=== PATIENT | female | born 1985 | race Caucasian/White ===

== ENCOUNTER 2016-11-14 08:56 | Emergency (ER) | payer OTHER ==
[2016-11-14] MEDS ORDERED: SODIUM CHLORIDE 0.9% 1,000 ML IV ONE (09:08)
[2016-11-14] MEDS ORDERED: diphenhydrAMINE 50 MG/ML 1 ML VIAL IVP STA (09:09)
[2016-11-14] MEDS ORDERED: KETOROLAC 30 MG/ML 1 ML VIAL IVP STA (09:09)
[2016-11-14] MEDS ORDERED: METOCLOPRAMIDE 5 MG/ML 2 ML VIAL IVP STA (09:09)
--- NOTE | 2016-11-14 09:12 | ED ---
General Adult HPI - General Chief complaint: Nausea/Vomiting/Diarrhea Stated complaint: vomiting Time Seen by Provider: 11/14/16 09:03 Source: patient, RN notes reviewed Mode of arrival: ambulatory Limitations: no limitations - History of Present Illness Initial comments: This a 30-year-old female presents emergency Department with chief complaint of headache. Patient states that she started a headache yesterday afternoon and states that she started vomiting. She states it was not getting better after she slept last night. Patient states she has a long history of headaches and high blood pressure issues. She states she is concerned that she cannot take her blood pressure medication, she's been vomiting. Denies any focal weakness, blurred vision. She does have some photophobia. Denies any neck pain, neck stiffness. She states her headache is consistent with her prior headaches in the past. Patient denies fever, chills or any cold like symptoms other than ALLERGY symptoms. Patient states that she's had nausea with no hematemesis no coffee-ground it but just more bile emesis. Patient denies any abdominal pain this time. - Related Data Home Medications Medication Instructions Recorded Confirmed Atenolol [Tenormin] 25 mg PO DAILY 05/31/15 11/14/16 Levothyroxine Sodium [Synthroid] 25 mcg PO DAILY 05/31/15 11/14/16 Pregabalin [Lyrica] 150 mg PO TID 05/31/15 11/14/16 Lisinopril [Lisinopril] 10 mg PO DAILY 06/05/15 11/14/16 ALPRAZolam [Xanax] 0.25 mg PO BID PRN 11/14/16 11/14/16 Baclofen [Lioresal] 10 mg PO BID 11/14/16 11/14/16 Ferrous Sulfate [Feosol] 325 mg PO DAILY 11/14/16 11/14/16 L.acidoph,Paracasei, B.lactis 1 cap PO BID 11/14/16 11/14/16 [Probiotic] Omeprazole [PriLOSEC] 20 mg PO AC-BRKFST 11/14/16 11/14/16 Allergies Allergy/AdvReac Type Severity Reaction Status Date / Time amoxicillin [Amoxicillin] Allergy Unknown Verified 11/14/16 09:18 Penicillins Allergy Unknown Verified 11/14/16 09:18 shellfish derived [Shellfish] Allergy Anaphylaxis Verified 11/14/16 09:18 tree nut Allergy Unknown Verified 11/14/16 09:18 Review of Systems ROS Statement: Those systems with pertinent positive or pertinent negative responses have been documented in the HPI. ROS Other: All systems not noted in ROS Statement are negative. Past Medical History Past Medical History: Fibromyalgia, GERD/Reflux, Hypertension, Thyroid Disorder Additional Past Medical History / Comment(s): migrane headaches,anemia, and chronic constipation History of Any Multi-Drug Resistant Organisms: None Reported Past Surgical History: Section Additional Past Surgical History / Comment(s): x3 Past Anesthesia/Blood Transfusion Reactions: No Reported Reaction Past Psychological History: Anxiety Smoking Status: Never smoker Past Alcohol Use History: None Reported Past Drug Use History: None Reported General Exam Limitations: no limitations General appearance: alert, in no apparent distress Head exam: Present: atraumatic, normocephalic, normal inspection Eye exam: Present: normal appearance, PERRL, EOMI. Absent: scleral icterus, conjunctival injection, periorbital swelling ENT exam: Present: normal exam, normal oropharynx, mucous membranes moist, TM's normal bilaterally, normal external ear exam Neck exam: Present: normal inspection, full ROM. Absent: tenderness, meningismus, lymphadenopathy Respiratory exam: Present: normal lung sounds bilaterally. Absent: respiratory distress, wheezes, rales, rhonchi, stridor Cardiovascular Exam: Present: regular rate, normal rhythm, normal heart sounds. Absent: systolic murmur, diastolic murmur, rubs, gallop, clicks GI/Abdominal exam: Present: soft, normal bowel sounds. Absent: distended, tenderness, guarding, rebound, rigid Extremities exam: Present: normal inspection, full ROM, normal capillary refill. Absent: tenderness, pedal edema, joint swelling, calf tenderness Neurological exam: Present: alert, oriented X3, CN II-XII intact, reflexes normal. Absent: motor sensory deficit Skin exam: Present: warm, dry, intact, normal color. Absent: rash Course Vital Signs 11/14/16 08:59 Temperature 98.3 F Pulse Rate 80 Respiratory 20 Rate Blood Pressure 183/112 O2 Sat by Pulse 99 Oximetry Medical Decision Making - Medical Decision Making 30-year-old female presented emergency department for headache nausea vomiting. Patient does feel improved at this time. Patient was given her blood pressure medication and she tolerated. Patient will be discharged at this time return parameters were discussed. Disposition Clinical Impression: Migraine, Nausea & vomiting Disposition: HOME SELF-CARE Condition: Stable Instructions: Migraine Headache (ED) Additional Instructions: Please return to the Emergency Department if symptoms worsen or any other concerns. Time of Disposition: 11:06
[2016-11-14] MEDS ORDERED: LISINOPRIL 10 MG TAB PO STA (10:26)
[2016-11-14] MEDS ORDERED: ONDANSETRON 4 MG/2 ML VIAL IVP STA (10:26)
[2016-11-14] MEDS ORDERED: BUTALB/APAP/CAFF 50-325-40MG TAB PO STA (10:26)
[2016-11-14 11:22] VITALS: BP 137/87; PULSE 67; RESP 16; TEMP 98.2
== END 2016-11-14 11:19 | disposition home or self-care (01) ==
LOC: EC 08:56
DX: G43.909 Migraine, unspecified, not intractable, without status migrainosus (principal); E07.9 Disorder of thyroid, unspecified; K21.9 Gastro-esophageal reflux disease without esophagitis; I10 Essential (primary) hypertension; M79.7 Fibromyalgia; D64.9 Anemia, unspecified; Z88.0 Allergy status to penicillin; Z91.018 Allergy to other foods; Z91.013 Allergy to seafood; Z79.899 Other long term (current) drug therapy
CPT/HCPCS: 99283; 96374; 96375 ×3; 96361; J1200; J2765; J2405; J1885

== ENCOUNTER → 2016-12-18 | Outpatient (CLI) | payer OTHER ==
[2016-12-18 12:35] LABS: Anisocytosis Slight; CH 18.6; CHCM 27.4; HCT 33.2 % (34.0-46.0); HDW 3.26; HGB 9.2 gm/dL (11.4-16.0); Hypochromasia Marked; MCHC 27.9 g/dL (31.0-37.0); MCV 68.3 fL (80.0-100.0); Mean Platelet Volume 6.3; Microcytosis Marked; RBC 4.85 m/uL (3.80-5.40); RDW 16.7 % (11.5-15.5); WBC 7.8 k/uL (3.8-10.6)
[2016-12-18 12:59] LABS: ALT 26 U/L (9-52); AST 21 U/L (14-36); Alkaline Phosphatase 89 U/L (38-126); Anion Gap 15 mmol/L; Blood Urea Nitrogen 6 mg/dL (7-17); Calcium 9.7 mg/dL (8.4-10.2); Carbon Dioxide 22 mmol/L (22-30); Chloride 106 mmol/L (98-107); Cholesterol 159 mg/dL (<200); Glucose 84 mg/dL (74-99); HDL Cholesterol 39 mg/dL (40-60); Non-African American GFR(MDRD) >60 (>60 ml/min/1.73 sqM); Sodium 143 mmol/L (137-145); Total Bilirubin 0.4 mg/dL (0.2-1.3); Total Protein 7.9 g/dL (6.3-8.2); Triglycerides 104 mg/dL (<150)
[2016-12-18 13:33] LABS: Potassium 4.4 mmol/L (3.5-5.1)
== END | disposition home or self-care (01) ==
LOC: LABWHC1 12:17
PROVIDERS: ATTEND Internal Medicine
DX: E03.9 Hypothyroidism, unspecified (principal); E78.2 Mixed hyperlipidemia; D64.9 Anemia, unspecified; I11.9 Hypertensive heart disease without heart failure
CPT/HCPCS: 36415; 80053; 80061; 84439; 84443; 85027

== ENCOUNTER → 2017-05-22 | Outpatient (CLI) | payer OTHER ==
[2017-05-22 14:27] LABS: Anisocytosis Slight; CH 18.5; CHCM 26.8; HDW 3.16; HGB 8.9 gm/dL (11.4-16.0); Hypochromasia Marked; MCH 18.8 pg (25.0-35.0); MCHC 27.1 g/dL (31.0-37.0); MCV 69.4 fL (80.0-100.0); Mean Platelet Volume 6.4; Microcytosis Marked; RBC 4.76 m/uL (3.80-5.40); RDW 16.4 % (11.5-15.5); WBC 8.8 k/uL (3.8-10.6)
[2017-05-22 14:36] LABS: ALT 23 U/L (9-52); AST 20 U/L (14-36); Alkaline Phosphatase 77 U/L (38-126); Anion Gap 11 mmol/L; Blood Urea Nitrogen 9 mg/dL (7-17); Calcium 9.6 mg/dL (8.4-10.2); Carbon Dioxide 23 mmol/L (22-30); Chloride 106 mmol/L (98-107); Cholesterol 149 mg/dL (<200); Glucose 91 mg/dL (74-99); HDL Cholesterol 55 mg/dL (40-60); Non-African American GFR(MDRD) >60 (>60 ml/min/1.73 sqM); Sodium 140 mmol/L (137-145); Total Bilirubin 0.2 mg/dL (0.2-1.3); Total Protein 7.7 g/dL (6.3-8.2)
[2017-05-22 15:12] LABS: Potassium 4.1 mmol/L (3.5-5.1)
--- NOTE | 2017-05-22 16:27 | XR ---
EXAMINATION TYPE: XR chest 2V DATE OF EXAM: 05/22/2017 COMPARISON: Prior chest x-ray 03/13/2016 HISTORY: Chest congestion and cough TECHNIQUE: Frontal and lateral views of the chest are obtained. FINDINGS: There is no focal air space opacity, pleural effusion, or pneumothorax seen. The cardiac silhouette size is stable and within normal limits. There is a spinal curvature. Bronchial wall thick ening noted. The osseous structures are intact. IMPRESSION: Correlate for bronchitis, reactive airways disease.
== END | disposition home or self-care (01) ==
LOC: LABWHC1 13:41
PROVIDERS: ATTEND Internal Medicine
DX: Z00.00 Encounter for general adult medical examination without abnormal findings (principal); J45.909 Unspecified asthma, uncomplicated; E78.2 Mixed hyperlipidemia; K21.0 Gastro-esophageal reflux disease with esophagitis; I11.9 Hypertensive heart disease without heart failure
CPT/HCPCS: 36415; 71020; 80053; 80061; 84439; 84443; 85027

== ENCOUNTER 2017-09-18 09:06 | Emergency (ER) | payer OTHER ==
[2017-09-18 09:11] VITALS: BP 171/108; PULSE 93; RESP 18; TEMP 98.7
--- NOTE | 2017-09-18 09:46 | XR ---
EXAMINATION TYPE: XR chest 2V DATE OF EXAM: 09/18/2017 COMPARISON: 05/22/2017 TECHNIQUE: PA and lateral views submitted. HISTORY: Cough FINDINGS: The lungs are clear and there is no pneumothorax, pleural effusion, or focal pneumonia. Slight scol iotic curvature. IMPRESSION: 1. No acute process.
--- NOTE | 2017-09-18 09:59 | ED ---
URI HPI - General Chief Complaint: Upper Respiratory Infection Stated Complaint: Sore Throat Time Seen by Provider: 09/18/17 09:17 Source: patient, RN notes reviewed Mode of arrival: ambulatory Limitations: no limitations - History of Present Illness Initial Comments: 31-year-old female presented from chief complaint cough congestion. Patient states she's been sick for 3 weeks with a sore throat, productive cough, ear pressure. Patient denies any known fevers or chills she's been trying over-the- counter cough and cold medication no relief. Patient denies any sick contacts. - Related Data Home Medications Medication Instructions Recorded Confirmed Levothyroxine Sodium [Synthroid] 25 mcg PO DAILY 05/31/15 09/18/17 Pregabalin [Lyrica] 150 mg PO TID 05/31/15 09/18/17 Lisinopril [Lisinopril] 10 mg PO BID 06/05/15 09/18/17 ALPRAZolam [Xanax] 0.25 mg PO BID PRN 11/14/16 09/18/17 Atenolol [Tenormin] 25 mg PO DAILY 09/18/17 09/18/17 amLODIPine [Norvasc] 5 mg PO DAILY 09/18/17 09/18/17 Previous Rx's Medication Instructions Recorded Azithromycin [Zithromax Z-pack] 0 mg PO DIRECTED #1 pack 09/18/17 predniSONE 50 mg PO DAILY #5 tab 09/18/17 Allergies Allergy/AdvReac Type Severity Reaction Status Date / Time amoxicillin [Amoxicillin] Allergy Unknown Verified 09/18/17 09:22 latex Allergy Rash/Hives Verified 09/18/17 09:25 Penicillins Allergy Unknown Verified 09/18/17 09:22 shellfish derived [Shellfish] Allergy Anaphylaxis Verified 09/18/17 09:22 tree nut Allergy Unknown Verified 09/18/17 09:22 Review of Systems ROS Statement: Those systems with pertinent positive or pertinent negative responses have been documented in the HPI. ROS Other: All systems not noted in ROS Statement are negative. Past Medical History Past Medical History: Fibromyalgia, GERD/Reflux, Hypertension, Thyroid Disorder Additional Past Medical History / Comment(s): migrane headaches,anemia, and chronic constipation History of Any Multi-Drug Resistant Organisms: None Reported Past Surgical History: Section, Tubal Ligation Additional Past Surgical History / Comment(s): x3 Past Anesthesia/Blood Transfusion Reactions: No Reported Reaction Past Psychological History: Anxiety Smoking Status: Never smoker Past Alcohol Use History: None Reported Past Drug Use History: None Reported General Exam Limitations: no limitations General appearance: alert, in no apparent distress Head exam: Present: atraumatic, normocephalic, normal inspection Eye exam: Present: normal appearance, PERRL, EOMI. Absent: scleral icterus, conjunctival injection, periorbital swelling ENT exam: Present: normal exam, normal oropharynx, mucous membranes moist, TM's normal bilaterally, normal external ear exam Neck exam: Present: normal inspection, full ROM. Absent: tenderness, meningismus, lymphadenopathy Respiratory exam: Present: rhonchi. Absent: normal lung sounds bilaterally, respiratory distress, wheezes, rales, stridor Cardiovascular Exam: Present: regular rate, normal rhythm, normal heart sounds. Absent: systolic murmur, diastolic murmur, rubs, gallop, clicks Course Vital Signs 09/18/17 09/18/17 09:07 09:51 Temperature 98.7 F Pulse Rate 93 Respiratory 18 18 Rate Blood Pressure 171/108 O2 Sat by Pulse 100 Oximetry Medical Decision Making - Medical Decision Making 31-year-old female presents for for cough congestion. Patient has been sick for 3 weeks. Chest x-ray reviewed no acute abnormality. Patient we treated for acute sinus says, bronchitis. Return parameters were discussed. Disposition Clinical Impression: Bronchitis, Sinusitis Disposition: HOME SELF-CARE Condition: Stable Instructions: Upper Respiratory Infection (ED) Additional Instructions: Please return to the Emergency Department if symptoms worsen or any other concerns. Prescriptions: Azithromycin [Zithromax Z-pack] 0 mg PO DIRECTED #1 pack predniSONE 50 mg PO DAILY #5 tab Referrals: Bruno Loera MD [Primary Care Provider] - 1-2 days Time of Disposition: 09:59
== END 2017-09-18 10:02 | disposition home or self-care (01) ==
LOC: EC 09:06
DX: M79.7 Fibromyalgia (principal); I10 Essential (primary) hypertension; E07.9 Disorder of thyroid, unspecified; J40 Bronchitis, not specified as acute or chronic; J32.9 Chronic sinusitis, unspecified; Z79.899 Other long term (current) drug therapy; Z88.0 Allergy status to penicillin; Z91.040 Latex allergy status; Z91.013 Allergy to seafood; Z91.018 Allergy to other foods
CPT/HCPCS: 71046; 99283

== ENCOUNTER 2018-02-22 20:09 | Observation (INO) | payer OTHER ==
[2018-02-22 20:31] LABS: Glucose,Whole Blood 106 mg/dL (75-99)
[2018-02-22] MEDS ORDERED: SODIUM CHLORIDE 0.9% 1,000 ML IV STA (22:05)
[2018-02-22] MEDS ORDERED: PROCHLORPERAZINE 10 MG TAB PO STA (22:06)
[2018-02-22] MEDS ORDERED: diphenhydrAMINE 50 MG/ML 1 ML VIAL IVP STA (22:07)
--- NOTE | 2018-02-22 22:12 | ED ---
Headache HPI - General Chief Complaint: Headache Stated Complaint: Poss high blood sugar/ Migraine Time Seen by Provider: 02/22/18 21:49 Mode of arrival: ambulatory Limitations: no limitations - History of Present Illness Initial Comments: Patient is a 32-year-old female presenting for headache. Patient states that she's got history of chronic headaches and that this particular headache was slow in onset and has been present for 3 days. The pain feels like a pressure in the back of her eyes as well as the back of her head and is associated with lightheadedness and one episode of nausea/vomiting. She states that she has had chronic problems with her blood pressure she was on labetalol at one time but nothing now. Over the last couple weeks, she has been having increased frequency of head aches and that this is also not the worst headache of her life. She states that she has had a CT in the past which showed some problems with her cerebellum but she does not know exactly what that was. - Related Data Home Medications Medication Instructions Recorded Confirmed Levothyroxine Sodium [Synthroid] 25 mcg PO DAILY 05/31/15 09/18/17 Pregabalin [Lyrica] 150 mg PO TID 05/31/15 09/18/17 Lisinopril 10 mg PO BID 06/05/15 09/18/17 ALPRAZolam [Xanax] 0.25 mg PO BID PRN 11/14/16 09/18/17 Atenolol [Tenormin] 25 mg PO DAILY 09/18/17 09/18/17 amLODIPine [Norvasc] 5 mg PO DAILY 09/18/17 09/18/17 Previous Rx's Medication Instructions Recorded Azithromycin [Zithromax Z-pack] 0 mg PO DIRECTED #1 pack 09/18/17 predniSONE 50 mg PO DAILY #5 tab 09/18/17 Allergies Allergy/AdvReac Type Severity Reaction Status Date / Time amoxicillin [Amoxicillin] Allergy Unknown Verified 02/22/18 20:30 latex Allergy Rash/Hives Verified 02/22/18 20:30 Penicillins Allergy Unknown Verified 02/22/18 20:30 shellfish derived [Shellfish] Allergy Anaphylaxis Verified 02/22/18 20:30 tree nut Allergy Unknown Verified 02/22/18 20:30 Review of Systems ROS Statement: Those systems with pertinent positive or pertinent negative responses have been documented in the HPI. Constitutional: Negative for chills, fatigue and fever. HENT: Negative for congestion. Respiratory: Negative for chest tightness, shortness of breath and wheezing. Negative for cough Cardiovascular: Negative for chest pain and palpitations. Gastrointestinal: Negative for abdominal pain. Negative for abdominal distention , diarrhea, positive for nausea and vomiting. Genitourinary: Negative for dysuria. Musculoskeletal: Negative for back pain, neck pain and neck stiffness. Skin: Negative for color change. Neurological: Negative for dizziness, speech difficulty, weakness and positive for headache and light-headedness. Psychiatric/Behavioral: Negative for agitation and confusion. Negative for anxiety ROS Other: All systems not noted in ROS Statement are negative. Past Medical History Past Medical History: Fibromyalgia, GERD/Reflux, Hypertension, Thyroid Disorder Additional Past Medical History / Comment(s): migrane headaches,anemia, and chronic constipation History of Any Multi-Drug Resistant Organisms: None Reported Past Surgical History: Section, Tubal Ligation Additional Past Surgical History / Comment(s): x3 Past Anesthesia/Blood Transfusion Reactions: No Reported Reaction Past Psychological History: Anxiety Smoking Status: Never smoker Past Alcohol Use History: None Reported Past Drug Use History: None Reported General Exam - General Exam Comments Initial Comments: Constitutional: Pt is oriented to person, place, and time. Pt appears well- developed and well-nourished. No distress. HENT: Head: Normocephalic and atraumatic. Eyes: EOM are normal. Neck: Normal range of motion. Neck supple. Cardiovascular: Normal rate, regular rhythm, S1 normal, S2 normal and normal heart sounds. Exam reveals no gallop and no friction rub. No murmur heard. Pulmonary/Chest: Effort normal and breath sounds normal. No tachypnea and no bradypnea. No respiratory distress. No wheezes or rales noted. Abdominal: Soft. Bowel sounds are normal. Pt exhibits no shifting dullness, no distension, no pulsatile liver, no fluid wave, no abdominal bruit and no ascites. There is no tenderness. There is no rigidity, no rebound, no guarding, no tenderness at McBurney's point and negative Galdamez's sign. Musculoskeletal: Normal range of motion. Neurological: Pt is alert and oriented to person, place, and time. No cranial nerve deficit. No meningismus, negative Kernig, negative Brudzinski's Skin: Skin is warm and dry. No rash noted. Pt is not diaphoretic. No erythema. No pallor. Psychiatric: Pt has a normal mood and affect. Pt behavior is normal. Thought content normal. Limitations: no limitations Course Vital Signs 02/22/18 02/22/18 02/22/18 20:23 22:58 23:38 Temperature 98.5 F Pulse Rate 97 75 Respiratory 18 16 Rate Blood Pressure 175/117 194/126 169/101 O2 Sat by Pulse 97 100 Oximetry 02/23/18 02/23/18 02/23/18 00:27 00:30 01:00 Temperature Pulse Rate 70 76 Respiratory 70 H Rate Blood Pressure 199/122 199/122 180/121 O2 Sat by Pulse Oximetry 02/23/18 01:16 Temperature Pulse Rate 75 Respiratory Rate Blood Pressure 163/113 O2 Sat by Pulse Oximetry - Reevaluation(s) Reevaluation #1: 02/23/18 00:03 Patient was initially given Benadryl and Compazine and continues to have headache which is slightly improved to a 7 out of 10 from a 9 out [address] Head [address] is pending. Reevaluation #2: 02/23/18 00:31 CTA of the head was performed and showed no evidence of acute pathology. However, patient continues to remain hypertensive at 199/125. Because of this, the patient will be given 10 mg labetalol and patient continues to have headache after being given Toradol and sumatriptan. Because of this, patient will be placed in observation for intractable headache. Extensive discussion was had with the patient about subarachnoid hemorrhage and timeframe of the CT head is advised that although the CTA could not completely rule out subarachnoid it was unlikely that this was the source. Nonetheless, he was also advised that the only definitive way to diagnosis was lumbar puncture. Patient currently declined and stated that she would hold off on this procedure. Patient also now states that her chest feels a little tight and therefore chest x-ray and EKG will be performed. Medical Decision Making - Medical Decision Making Because of patient's continued headache with unknown etiology and hypertension, patient will be placed in observation for continued treatment and hydration. Patient continues to have no neurologic deficits. Blood pressure is also been reduced appropriately with the labetalol but because the patient was having chest discomfort, this appears to be hypertensive urgency.. Explained all labs and diagnostic test results and that we will admit patient to hospital. Pt is agreeable to plan and case has been discussed with Dr. Loera and they agree to accept the pt. - Lab Data Result diagrams: 02/22/18 22:36 02/22/18 22:36 Lab Results 02/22/18 02/22/18 02/22/18 Range/Units 20:29 22:36 22:36 WBC 8.0 (3.8-10.6) k/uL RBC 5.27 (3.80-5.40) m/uL Hgb 9.6 L (11.4-16.0) gm/dL Hct 33.8 L (34.0-46.0) % MCV 64.1 L (80.0-100.0) fL MCH 18.2 L (25.0-35.0) pg MCHC 28.4 L (31.0-37.0) g/dL RDW 17.3 H (11.5-15.5) % Plt Count 424 (150-450) k/uL Neutrophils % 57 % Lymphocytes % 31 % Monocytes % 9 % Eosinophils % 2 % Basophils % 1 % Neutrophils # 4.6 (1.3-7.7) k/uL Lymphocytes # 2.5 (1.0-4.8) k/uL Monocytes # 0.7 (0-1.0) k/uL Eosinophils # 0.1 (0-0.7) k/uL Basophils # 0.0 (0-0.2) k/uL Hypochromasia Marked Anisocytosis Slight Microcytosis Marked Sodium 141 (137-145) mmol/L Potassium 4.4 (3.5-5.1) mmol/L Chloride 107 (98-107) mmol/L Carbon Dioxide 23 (22-30) mmol/L Anion Gap 11 mmol/L BUN 10 (7-17) mg/dL Creatinine 0.60 (0.52-1.04) mg/dL Est GFR (CKD-EPI)AfAm >90 (>60 ml/min/1.73 sqM) Est GFR (CKD-EPI)NonAf >90 (>60 ml/min/1.73 sqM) Glucose 82 (74-99) mg/dL POC Glucose (mg/dL) 106 H (75-99) mg/dL POC Glu Oral And Maxillofacial Surgery ID Wilma [place] Calcium 9.5 (8.4-10.2) mg/dL Urine HCG, Qual (Not Detectd) 02/22/18 Range/Units 23:39 WBC (3.8-10.6) k/uL RBC (3.80-5.40) m/uL Hgb (11.4-16.0) gm/dL Hct (34.0-46.0) % MCV (80.0-100.0) fL MCH (25.0-35.0) pg MCHC (31.0-37.0) g/dL RDW (11.5-15.5) % Plt Count (150-450) k/uL Neutrophils % % Lymphocytes % % Monocytes % % Eosinophils % % Basophils % % Neutrophils # (1.3-7.7) k/uL Lymphocytes # (1.0-4.8) k/uL Monocytes # (0-1.0) k/uL Eosinophils # (0-0.7) k/uL Basophils # (0-0.2) k/uL Hypochromasia Anisocytosis Microcytosis Sodium (137-145) mmol/L Potassium (3.5-5.1) mmol/L Chloride (98-107) mmol/L Carbon Dioxide (22-30) mmol/L Anion Gap mmol/L BUN (7-17) mg/dL Creatinine (0.52-1.04) mg/dL Est GFR (CKD-EPI)AfAm (>60 ml/min/1.73 sqM) Est GFR (CKD-EPI)NonAf (>60 ml/min/1.73 sqM) Glucose (74-99) mg/dL POC Glucose (mg/dL) (75-99) mg/dL POC Glu Oral And Maxillofacial Surgery ID Calcium (8.4-10.2) mg/dL Urine HCG, Qual Not Detected (Not Detectd) - EKG Data EKG Comments: EKG shows normal sinus rhythm with a rate of 69 bpm, MI interval 142, QRS 78, QTC 484. There is nonspecific T-wave inversion in lead V2 with no significant ST depressions or elevations. Disposition Clinical Impression: Hypertensive urgency, Intractable headache Disposition: ADMITTED IP TO THIS [facility] Condition: Fair Instructions: Acute Headache (ED) Referrals: Bruno Loera MD [Primary Care Provider] - 1-2 days Decision to Admit Reason: Admit from EC Decision Date: 02/23/18 Decision Time: 01:30
[2018-02-22 22:48] LABS: Anisocytosis Slight; Basophils % (A) 1 %; Eosinophils # (A) 0.1 k/uL (0-0.7); Eosinophils % (A) 2 %; HCT 33.8 % (34.0-46.0); HGB 9.6 gm/dL (11.4-16.0); Hypochromasia Marked; Lymphocytes # (A) 2.5 k/uL (1.0-4.8); Lymphocytes % (A) 31 %; MCH 18.2 pg (25.0-35.0); MCHC 28.4 g/dL (31.0-37.0); MCV 64.1 fL (80.0-100.0); Mean Platelet Volume 6.1; Microcytosis Marked; Monocytes # (A) 0.7 k/uL (0-1.0); Monocytes % (A) 9 %; Neutrophils # (A) 4.6 k/uL (1.3-7.7); Neutrophils % (A) 57 %; Platelet Count 424 k/uL (150-450); RBC 5.27 m/uL (3.80-5.40); RDW 17.3 % (11.5-15.5)
[2018-02-22 22:56] LABS: Anion Gap 11 mmol/L; Blood Urea Nitrogen 10 mg/dL (7-17); Calcium 9.5 mg/dL (8.4-10.2); Carbon Dioxide 23 mmol/L (22-30); Chloride 107 mmol/L (98-107); Glucose 82 mg/dL (74-99); Potassium 4.4 mmol/L (3.5-5.1); Sodium 141 mmol/L (137-145)
--- NOTE | 2018-02-22 23:55 | CT ---
EXAMINATION TYPE: CT angio head DATE OF EXAM: 02/22/2018 11:38 PM COMPARISON: HISTORY: PT. C/O HEADACHE WITH ELEVATED BP AND GLUCOSE LEVELS CT DLP: 1383.70 mGycm Automated exposure control for dose reduction was used. TECHNIQUE: Performed with IV Contrast, patient injected with 80 mL of Isovue 370. Exam was performed without and with contrast. There are 3-D post processed images.. FINDINGS: The noncontrast images show normal ventricles and sulci. There is no mass effect nor midline shift. T here is no sign of intracranial hemorrhage. There is arterial flow in the distal vertebral arteries. There is arterial flow in the vertebrobasila r artery system. The right posterior cerebral artery fills mostly through the right posterior communi cating artery. There is arterial flow in the anterior middle and posterior cerebral arteries bilaterally. There is a diminutive proximal right anterior cerebral artery. The anterior cerebral arteries filled mostly fro m the left side through the anterior communicating artery. There is no evidence of aneurysm or neovas cularity. There is no mass effect. There is normal contrast opacification of the venous sinuses. I se e no evidence of stenosis. IMPRESSION: NEGATIVE CT ANGIOGRAM OF THE BRAIN.
[2018-02-22] MEDS ORDERED: KETOROLAC 30 MG/ML 1 ML VIAL IVP STA (23:59)
[2018-02-22] MEDS ORDERED: SUMAtriptan SUCCINATE 6 MG/0.5 ML VIAL SQ STA (23:59)
[2018-02-23] MEDS ORDERED: LABETALOL 5 MG/ML VIAL MDV IVP STA (00:29)
--- NOTE | 2018-02-23 00:54 | XR ---
EXAMINATION TYPE: XR chest 2V DATE OF EXAM: 02/23/2018 COMPARISON: 09/18/2017 HISTORY: Headache TECHNIQUE: Frontal and lateral views of the chest are obtained. FINDINGS: Heart and mediastinum are normal. Lungs are clear. Diaphragm is normal. Bony thorax appear s normal. IMPRESSION: Normal chest. No change.
[2018-02-23] MEDS ORDERED: NALOXONE 0.4 MG/ML 1 ML VIAL IV PRN (01:21)
[2018-02-23] MEDS: SODIUM CHLORIDE 0.9% 1,000 ML IV SCH ×2 (02:49→19:17)
[2018-02-23] MEDS: ATENOLOL 25 MG TAB PO SCH (09:53)
[2018-02-23] MEDS: LISINOPRIL 10 MG TAB PO SCH ×2 (09:53→20:51)
[2018-02-23] MEDS: ACETAMINOPHEN TAB 325 MG TAB PO PRN ×2 (11:34→20:18)
[2018-02-23] MEDS ORDERED: ALPRAZolam 0.25 MG TAB PO PRN (13:58)
[2018-02-23] MEDS: IBUPROFEN 600 MG TAB PO PRN ×2 (14:56→22:51)
[2018-02-23] MEDS: amLODIPine 5 MG TAB PO SCH (14:57)
[2018-02-23] MEDS: PREGABALIN 75 MG CAP PO SCH ×2 (14:57→20:51)
[2018-02-23] MEDS ORDERED: LORazepam 2 MG/ML INJ IV STA (18:51)
[2018-02-23] MEDS ORDERED: MAGNESIUM SULFATE-D5W PMX 1 GM in DEXTROSE/WATER 1 100ML.BAG IVPB ONE (19:00)
--- NOTE | 2018-02-23 20:16 | MR ---
EXAMINATION TYPE: MR brain wo con DATE OF EXAM: 02/23/2018 COMPARISON: 08/30/2014 HISTORY: Headache, Left sided numbness Standard multiplanar, multisequence MRI departmental protocol Multiplanar, multisequence images of the were acquired. Diffusion weighted imaging was performed. FINDINGS: Ventricles and sulci appear normal. There is no mass effect nor midline shift. There is no sign of intracranial hemorrhage. Fournier-white matter structures have normal signal pattern. There is no evidence of cerebral edema. There is 1.5 cm mucous retention cyst in the left maxillary sinus. Corpu s callosum appears normal. Brainstem appears normal. Sella turcica is normal. IMPRESSION: Normal MR scan of the brain.
--- NOTE | 2018-02-23 21:19 | CONS ---
CONSULTATION DATE OF CONSULTATION: 02/23/2018. CHIEF COMPLAINT: Headache. HISTORY OF PRESENT ILLNESS: The patient is a pleasant 32-year-old, female who is being evaluated by the neurology service per the request of Dr. Bruno Loera for an intractable headache. The patient has history of migraine headaches that do occasionally become severe but they usually last less than 24 hours. She has been suffering with a severe headache for over 2 days now. She describes her headache as a throbbing pain and rated it at 8/10 in intensity when she arrived to the emergency room. Initially, her headache was mainly in the occipital, temporal, and frontal region bilaterally. Her blood pressure was found to be significantly elevated on admission. She does have history of hypertension and is on multiple blood pressure medications at home. Her blood pressure was as high as 199/122. At home, she does take atenolol and Norvasc. On this admission, a 3rd antihypertensive medication has been started and her blood pressure has improved at 136/85 at the time of my evaluation. She reports improvement in her headache but denies resolution. Her pain is mainly now in the occipital region and she rates it at 5/10 in intensity at the time of my evaluation. She also reports that she has some numbness on her left side. She reports having weakness on the left side for several months. Slightly improved. She did not seek any medical attention for these specific symptoms. A CT angiogram of the brain was done on this admission which was normal. Her CBC showed anemia with a hemoglobin of 9.6 and hematocrit of 33%. Her basic metabolic profile and cardiac enzymes were normal. PAST MEDICAL HISTORY: Hypertension, hypothyroidism, fibromyalgia, gastroesophageal reflux disease, anxiety disorder, history of tubal ligation and . SOCIAL HISTORY: She denies any tobacco or alcohol or drug use. FAMILY HISTORY: Positive for hypertension. HOME MEDICATIONS: Reviewed in the chart. ALLERGIES: PENICILLIN, SHELLFISH, LATEX, TREE NUTS. REVIEW OF SYSTEMS: CONSTITUTIONAL: Negative. EYES: Negative. HEAD/ENT: Negative. CARDIOVASCULAR: As mentioned above. RESPIRATORY: Negative. NEUROLOGICAL: As mentioned above. GASTROINTESTINAL: Positive for occasional heartburn. GENITOURINARY: Negative. Musculoskeletal: Negative. DERMATOLOGICAL: Negative. ENDOCRINE: Positive for hypothyroidism. PSYCHIATRIC: Positive for history of anxiety disorder. PHYSICAL EXAM: Vital signs show a temperature of 98.2, pulse 71, respiration 18, blood pressure 135/85. GENERAL APPEARANCE: The patient is a well-developed female, who appears to be in no acute distress. HEENT: Normocephalic, atraumatic, no facial asymmetry is seen. Extraocular muscles are intact, tenderness to palpation is felt along bilateral greater occipital nerve regions. NECK: Supple with no masses felt. CARDIOVASCULAR: Regular rate and rhythm. ABDOMEN: Nontender nondistended. Extremities showed no edema or clubbing. NEUROLOGICAL: The patient is alert, aware and oriented x3. Speech and language are normal. Strength is full in all 4 extremities. Sensory exam showed slightly diminished light touch sensation on the left upper extremity compared to the right. Ivxkeu-nzlr-rpwjwf testing showed no dysmetria. No tremors are seen. No facial asymmetry is noticed on cranial nerve testing. IMPRESSION: 1. Intractable headache. 2. Occipital neuritis. 3. Left upper extremity numbness and sensory deficit. 4. Uncontrolled hypertension. 5. Anemia. RECOMMENDATION: The patient's headache intensity has improved with improvement in her elevated blood pressure. Currently, she is mainly having occipital headache which she rates at 5/10 in intensity and she appears to be comfortable at this time. I will start her on IV Solu-Medrol 250 mg every 8 hours. I will also start her on Reglan 10 mg IV every 6 hours. She will receive a single dose of magnesium sulfate 1 g IV. She may require occipital nerve blocks which can be done in the outpatient setting after her discharge. As for her recent symptoms of left-sided weakness and given her slight sensory deficit on her left upper extremity, I will order an MRI of the brain without contrast. She does report mild claustrophobia and I will pre treat her with Ativan for this. Continue the rest of your current workup and management. I will continue to follow with you. Further recommendations to follow. Thank you, Dr. Loera for allowing me to participate in the care of your patient. If you have any questions, please feel free to contact me. MMODL / IJN: [id number] /
[2018-02-23] MEDS: METOCLOPRAMIDE 5 MG/ML 2 ML VIAL IVP SCH (22:46)
[2018-02-24] MEDS: METOCLOPRAMIDE 5 MG/ML 2 ML VIAL IVP SCH ×3 (06:43→21:19)
[2018-02-24] MEDS: SODIUM CHLORIDE 0.9% 1,000 ML IV SCH ×2 (07:22→17:47)
[2018-02-24] MEDS: PREGABALIN 75 MG CAP PO SCH ×3 (09:48→21:17)
[2018-02-24] MEDS: LEVOTHYROXINE 25 MCG TAB PO SCH (09:48)
--- NOTE | 2018-02-24 12:29 | HP ---
HISTORY AND PHYSICAL DATE OF ADMISSION: 02/23/2018 DATE OF SERVICE: 02/23/2018 CHIEF COMPLAINT: Fever, headache, high blood pressure, nausea and vomiting. This is a 32-year-old white female who came to the emergency room with complaints of severe headache. This was a pressure-like pain in the forehead and this was also associated with some nausea and vomiting. The patient was getting this headache for the past 2 days and this was progressively getting worse. The patient also had some dizziness and in the emergency room, her blood pressure was found to be extremely high and it was 199/122 and her CBC showed a WBC of 8.0, hemoglobin 9.6, platelet count 424,000, sodium 141, potassium 4.4, BUN 10, and creatinine 0.6, glucose 82. She had a CT angio of the brain that was reported as negative. The patient was given labetalol and Imitrex in the ER and the patient was then admitted to the hospital for further evaluation and treatment. PAST MEDICAL HISTORY: Her past medical history reveals that she is known to have headaches on and off and she has seen neurologists in the past and also she has history of hypertension, hypothyroidism, anxiety and also chronic anemia. She has had extensive evaluation for this anemia. In 2017, she had upper and lower endoscopy, which were all negative. CURRENT MEDICATIONS: Her current medications include: 1. Synthroid 25 mcg daily. 2. Lyrica 150 mg p.o. t.i.d. 3. Lisinopril 10 mg b.i.d. 4. Norvasc 5 mg daily. 5. Xanax 0.25 mg p.o. b.i.d. p.r.n. 6. Atenolol 25 mg p.o. daily. She does not smoke and she does not drink alcohol. ALLERGIES: She is allergy to PENICILLIN and AMOXICILLIN and also SHELLFISH. FAMILY HISTORY: Positive for cancer and also heart disease. REVIEW OF SYSTEMS: Patient has had headache as mentioned before. She also has some nausea and dizziness associated with these symptoms. She denies any chest pain or cough. She has no abdominal pain. She had no polyuria or dysuria. She has no neurological symptoms other than the headache. PHYSICAL EXAMINATION: Physical examination reveals a 32-year-old white female, well nourished and well developed. She is alert and oriented. She is still having some headache and there is no jaundice. There is no generalized lymphadenopathy. There are no petechia or bruises. Pulse is 78 per minute. Temperature is 98.5. Blood pressure in the ER was 199/122, and blood pressure has come down to normal range with medications. EXAMINATION OF THE ENT: Negative. Neck is supple. There is no jugular venous distention. There is no goiter. There is no carotid bruit. Heart is in sinus rhythm. Lungs are clear to auscultation and percussion. ABDOMEN: Soft and nontender. There is no mass palpable. Examination of the lower extremities reveal no pitting edema. Neurological examination does not reveal any localizing signs. IMPRESSION: 1. Severe headache. 2. Migraine headache. 3. Hypertensive urgency. 4. Hypothyroidism. 5. Gastroesophageal reflux disease. 6. Chronic anemia. 7. Fibromyalgia. PLAN: Patient will be admitted to the hospital. We will place her back on her previous home medications and will get a neurology consultation. Prognosis is guarded. The diagnosis, prognosis and therapeutic plans were discussed in detail with the patient today. MMODL / IJN: [id number] /
[2018-02-24] MEDS: LISINOPRIL 10 MG TAB PO SCH ×2 (13:11→21:19)
[2018-02-24] MEDS: amLODIPine 5 MG TAB PO SCH (13:11)
[2018-02-24] MEDS: ATENOLOL 25 MG TAB PO SCH (13:11)
--- NOTE | 2018-02-24 14:14 | PN ---
PROGRESS NOTE DATE OF SERVICE: 02/24/2018 This is a 32-year-old white female who was brought to the emergency room with severe headache and in the ER she was also found to have extremely high blood pressure of 199/125, and also she has a history of recurrent headaches and the headache was also associated with some nausea, vomiting, and dizziness. The patient had a CT angio of the brain which was negative for any abnormal findings and she is also known to have hypothyroidism, hypertensive cardiovascular disease, and fibromyalgia, and the patient has been placed back on her previous medications and her blood pressure is better controlled with the medications. She is on atenolol, lisinopril and Norvasc. The patient was seen by Dr. Torres in consultation and he feels that the patient may have a migraine type of headache and also currently the patient was complaining of lot of pain in the occipital area. Dr. Torres feels that this is due to occipital neuritis and the patient is currently receiving Solu-Medrol IV and MRI was ordered by Dr. Torres. Apparently this also looks within normal limits. Her blood pressure is under control. Heart is in sinus rhythm. Lungs are clear. There is no acute cardiorespiratory problems. Will continue in the treatments by Dr. Torres and Dr. Torres is going to see her again this evening. Prognosis is guarded. MMODL / IJN: [id number] /
[2018-02-24] MEDS ORDERED: LORazepam 2 MG/ML INJ IV STA (14:25)
--- NOTE | 2018-02-24 14:45 | XR ---
EXAMINATION TYPE: XR cervical spine w flex/ext DATE OF EXAM: 02/24/2018 COMPARISON: NONE HISTORY: Headache TECHNIQUE: Seven views including lateral flexion and extension are submitted. FINDINGS: The odontoid is intact. There are no compression deformities. The prevertebral soft tissue structur es are within normal limits. Mild hypertrophic change along the anterior margin of the L5 vertebral body. There is multilevel 1 to 2 mm anterolisthesis on flexion views and retrolisthesis on extension views. IMPRESSION: 1. There is multilevel very minimal alignment change upon flexion and extension as discussed above. C ould be secondary to ligamentous laxity. Other etiologies not excluded. Correlate with MRI as clinica lly warranted.
--- NOTE | 2018-02-24 15:22 | P.PN ---
Subjective Progress Note Date: 02/24/18 Principal diagnosis: Intractable headache Neurology is following a 32-year-old female intractable head pain. Patient has a known migraine history however her current head pain is significantly longer in duration. Usual duration is 24 hours or less. On presentation at the ED the patient states that her head pain had been ongoing for 2 days or more. Pain is described as throbbing an 8 out of 10 in intensity that was both bilateral occipital as well as bilateral frontal. Patient had significantly elevated blood pressure 199/122. Patient is on two antihypertensive medications at home. She does report some decreased symptoms since the addition of her third cardiac medication in the ED. She also has had a secondary complaint of upper and lower extremity weakness for the last several months. Patient states she has had some intermittent but persistent left upper and lower extremity to some degree since the of her child 13 years ago. Some deficits were recovered through rehabilitation efforts in the past and currently with a personalized living assistant. Additionally the patient states that her migraines become more intense when her neck is stiff and painful. She reports prior injection history with Dr Candelaria for cervical epidural steroid injections which did not decrease her complaints significantly. On contact, patient is alert and oriented 3, no acute distress, resting in bed. Patient states her current pain level as a 7 out of 10. She reports IV Solu-Medrol has decreased her pain some but does increase upon ambulation. Supervising physician ordered an MRI of the brain yesterday. Results were noted to be normal MRI brain. Objective - Vital Signs Vital signs: Vital Signs Temp 98.6 F 02/24/18 12:45 Pulse 87 02/24/18 12:45 Resp 16 02/24/18 12:45 BP 149/81 02/24/18 12:45 Pulse Ox 100 02/24/18 12:45 Intake & Output 02/23/18 02/24/18 02/24/18 18:59 06:59 18:59 Intake Total 900 362 Balance 900 362 Weight 56.6 kg 56.6 kg Intake: Oral 900 362 Other: Voiding Method Toilet Toilet - Exam Gen. appearance: Alert, in no apparent distress Head: Atraumatic normocephalic, normal inspection Eyes: Well appearance, PERRL, EOMI. absent: Scleral icterus, conjunctival injection, nystagmus, periorbital swelling. Ear nose and throat: Normal exam, mucous membranes moist Neck: Normal inspection. Absent tenderness, lymphadenopathy Respiratory: No increased work of breathing. Cardiovascular: Regular rate, normal rhythm, normal heart sounds. Absent systolic murmur, diastolic murmur, rubs, gallops, clicks GIabdominal: Normal bowel sounds, non distended, no tenderness, no guarding, no rebound, no rigidity. Extremities: All range of motion, normal capillary refill, no tenderness, pedal edema, joint swelling, calf tenderness Neurological: Alert and oriented 3, cranial nerves II through XII intact, left known unilateral lateralizing weakness upper and lower extremity, no seizure activity noted on physical exam, no pronator drift and no nystagmus. Slight decrease sensation to light touch left upper extremity. Spine: Cervical: Reproducible pain with extension and lateral rotation bilaterally, negative Spurling's, negative pain reproducible with flexion Psychological: Mood and affect appropriate setting - Labs CBC & Chem 7: 02/22/18 22:36 02/22/18 22:36 Assessment and Plan (1) Cervicalgia Current Visit: Yes Status: Acute Code(s): M54.2 - CERVICALGIA SNOMED Code( s): 78486613 (2) Intractable headache Current Visit: Yes Status: Acute Code(s): R51 - HEADACHE SNOMED Code(s): 35242674 (3) Occipital neuralgia Current Visit: Yes Status: Acute Code(s): M54.81 - OCCIPITAL NEURALGIA SNOMED Code(s): 38309087 (4) Hypertensive urgency Current Visit: Yes Status: Acute Code(s): I16.0 - HYPERTENSIVE URGENCY SNOMED Code(s): 662935513 Plan: Intractable headacheoccipital neuralgia: Patient does appear to have intractable headache. Patient is progressing well with IV Solu-Medrol every 8 hours. Continue IV Solu-Medrol, bedside glucose checks, sliding-scale insulin is ordered. Continue IV magnesium as ordered. Patient reports some decrease in symptoms. MRI brain unremarkable CT angiogram negative unremarkable EEG still pending Continue with plan of care as ordered. Reassess tomorrow. Cervicalgia/cervical facet pain: Physical exam, patient has findings consistent with cervical facet etiology. Patient has pain with extension and lateral rotation of the head and neck. Patient has had no diagnostic workup and it does appear that this could be possible secondary concurrent etiology for patient's occipital neuralgia. Ordered: X-ray cervical spine with flexion and extension loadbearing Ordered: MRI cervical spine without contrast to investigate any new or changed underlying etiology, osseous pathology or other soft tissue injury or lesion. Further treatment deferred until results of imaging can be received and reviewed. Patient's pain is currently tolerable as managed with IV Solu-Medrol as noted above #1. Left upper and lower extremities weakness: She does have significant history of left upper and lower extremity weakness with some improvement with rehabilitative efforts in the past. Patient is currently working with a personalized living assistant to assist with strengthening. Per family member, patient's father had similar symptoms a young age. at 61. MRI of the brain at this time is unremarkable. CT angiogram was negative/unremarkable. Further workup may be required in the outpatient setting for more definitive etiology. At this time, CVA has been ruled out. Uncontrolled hypertension: Defer to primary team for management. STATUS: Neurology will continue to follow and provide updates as needed or warranted. Feel free to contact our office with any questions. I discussed the patients history, physical exam, diagnostic testing, lab work and imaging with Dr Torres prior to implementing the plan above. He agrees with the plan as implemented prior to implementation.
--- NOTE | 2018-02-24 15:35 | MR ---
MRI CERVICAL SPINE: CLINICAL HISTORY: Headache and neck pain. TECHNIQUE: Multiplanar, multisequence imaging of the cervical spine is performed without IV contrast. COMPARISON: Most recent cervical spine x-ray earlier today. MRI spinal survey June 01, 2012 FINDINGS: Sagittal images of the cervical spine show the craniocervical junction to appear within nor mal limits. The cervical and upper thoracic spinal cord is normal in course, caliber, and signal. V ertebral alignment is anatomic. The vertebral body and intravertebral disk heights are normal. No s uspicious posterior disc herniations are seen on sagittal images. The bone marrow signal intensity is within normal limits. No significant spurring is noted. Axial images show there is no significant focal disk disease, spinal canal stenosis, neural foraminal narrowing, or spinal cord compromise at any cervical level. IMPRESSION: Negative MRI of the cervical spine, no significant abnormality is seen to account for geronimo chinal's clinical symptoms.
--- NOTE | 2018-02-24 18:20 | EEG ---
ELECTROENCEPHALOGRAM REPORT DATE OF SERVICE: 02/24/2018. REASON FOR TESTING: Headache and numbness. DESCRIPTION OF THE PROCEDURE: This EEG was performed using a 21 channel digital electroencephalograph, following international 10-20 system. DESCRIPTION OF THE RECORDING: From the beginning of the tracing, and with patient's eyes closed, the background rhythm was mostly consisting of 9 Hz alpha frequency in the posterior occipital leads. No obvious asymmetry is seen. Photic stimulation was performed with a good driving response seen. No pathological waves were elicited. Occasional movement artifacts are seen. Hyperventilation was not performed. The patient remains awake throughout the tracing. No epileptiform discharges were seen. Her EKG lead showed a regular rate and rhythm. INTERPRETATION: This awake EEG can be considered within normal limits. There was no asymmetry seen. No epileptiform discharges were noticed. The absence of epileptiform discharges does not rule out the diagnosis of epilepsy; therefore clinical correlation is recommended. MMPEDROL / ASHLEYN: [id number] /
[2018-02-24 19:03] VITALS: RESP 16
[2018-02-24] MEDS: LORATADINE 10 MG TAB PO SCH (21:17)
[2018-02-24] MEDS: IRON PS CMPLX/VIT B12/FA 1 EACH CAP PO SCH (21:18)
[2018-02-24] MEDS: IBUPROFEN 600 MG TAB PO PRN (21:21)
[2018-02-24] MEDS: ACETAMINOPHEN TAB 325 MG TAB PO PRN (23:28)
[2018-02-25] VITALS: TEMP 98.4
[2018-02-25 07:58] VITALS: BP 132/83; PULSE 96
[2018-02-25] MEDS: LORATADINE 10 MG TAB PO SCH (09:15)
[2018-02-25] MEDS: amLODIPine 5 MG TAB PO SCH (09:15)
[2018-02-25] MEDS: LISINOPRIL 10 MG TAB PO SCH (09:15)
[2018-02-25] MEDS: LEVOTHYROXINE 25 MCG TAB PO SCH (09:15)
[2018-02-25] MEDS: PREGABALIN 75 MG CAP PO SCH (09:15)
[2018-02-25] MEDS: ACETAMINOPHEN TAB 325 MG TAB PO PRN (09:16)
[2018-02-25] MEDS: ATENOLOL 25 MG TAB PO SCH (09:16)
[2018-02-25] MEDS: IRON PS CMPLX/VIT B12/FA 1 EACH CAP PO SCH (09:17)
[2018-02-25] MEDS ORDERED: SUMAtriptan SUCCINATE 50 MG TAB PO PRN ×2 (12:48→12:52)
--- NOTE | 2018-02-25 19:03 | P.PN ---
Subjective Progress Note Date: 02/25/18 Principal diagnosis: Intractable headache Rouned on at 1320 hrs Interval update 02/25/18: Patient has completed 24 hours of IV Solu-Medrol and reports decreased had pain to a tolerable level. Patient does report intermittent dizziness with ambulation which has been present prior to hospitalization. MRI brain was unremarkable. MRI cervical spine to investigate possible cervicogenic component to patient's headache was unremarkable. X-ray cervical spine noted ligamentous laxity in the cervical spine. Head CTA was also negative for acute process. Reassess in outpatient setting. Patient is alert and oriented 3, resting in bed in no acute distress on contact. No family or visitors in the room. Nursing reports no neurological status changes. Nursing reports patient is improving. 02/24/18: Neurology is following a 32-year-old female intractable head pain. Patient has a known migraine history however her current head pain is significantly longer in duration. Usual duration is 24 hours or less. On presentation at the ED the patient states that her head pain had been ongoing for 2 days or more. Pain is described as throbbing an 8 out of 10 in intensity that was both bilateral occipital as well as bilateral frontal. Patient had significantly elevated blood pressure 199/122. Patient is on two antihypertensive medications at home. She does report some decreased symptoms since the addition of her third cardiac medication in the ED. She also has had a secondary complaint of upper and lower extremity weakness for the last several months. Patient states she has had some intermittent but persistent left upper and lower extremity to some degree since the of her child 13 years ago. Some deficits were recovered through rehabilitation efforts in the past and currently with a production trainer. Additionally the patient states that her migraines become more intense when her neck is stiff and painful. She reports prior injection history with Dr Candelaria for cervical epidural steroid injections which did not decrease her complaints significantly. On contact, patient is alert and oriented 3, no acute distress, resting in bed. Patient states her current pain level as a 7 out of 10. She reports IV Solu-Medrol has decreased her pain some but does increase upon ambulation. Supervising physician ordered an MRI of the brain yesterday. Results were noted to be normal MRI brain. Objective - Vital Signs Vital signs: Vital Signs Temp 98.4 F 02/24/18 23:59 Pulse 96 02/25/18 12:00 Resp 16 02/25/18 12:00 BP 132/83 02/25/18 07:57 Pulse Ox 100 02/25/18 07:57 Intake & Output 02/24/18 02/25/18 02/25/18 18:59 06:59 18:59 Intake Total 662 640 Balance 662 640 Weight 56.6 kg 56.6 kg Intake: Oral 662 640 Other: Voiding Method Toilet Toilet Toilet - Exam Gen. appearance: Alert, in no apparent distress Head: Atraumatic normocephalic, normal inspection Eyes: Well appearance, PERRL, EOMI. absent: Scleral icterus, conjunctival injection, nystagmus, periorbital swelling. Ear nose and throat: Normal exam, mucous membranes moist Neck: Normal inspection. Absent tenderness, lymphadenopathy Respiratory: No increased work of breathing. Cardiovascular: Regular rate, normal rhythm, normal heart sounds. Absent systolic murmur, diastolic murmur, rubs, gallops, clicks GIabdominal: Normal bowel sounds, non distended, no tenderness, no guarding, no rebound, no rigidity. Extremities: All range of motion, normal capillary refill, no tenderness, pedal edema, joint swelling, calf tenderness Neurological: Alert and oriented 3, cranial nerves II through XII intact, left known unilateral lateralizing weakness upper and lower extremity, no seizure activity noted on physical exam, no pronator drift and no nystagmus. Slight decrease sensation to light touch left upper extremity. Spine: Cervical: Reproducible pain with extension and lateral rotation bilaterally, negative Spurling's, negative pain reproducible with flexion Psychological: Mood and affect appropriate setting - Labs CBC & Chem 7: 02/22/18 22:36 02/22/18 22:36 Assessment and Plan (1) Intractable headache Status: Acute Code(s): R51 - HEADACHE SNOMED Code(s): 25566045 (2) Cervicalgia Status: Acute Code(s): M54.2 - CERVICALGIA SNOMED Code(s): 74421371 (3) Occipital neuralgia Status: Acute Code(s): M54.81 - OCCIPITAL NEURALGIA SNOMED Code(s): 64946799 (4) Hypertensive urgency Status: Acute Code(s): I16.0 - HYPERTENSIVE URGENCY SNOMED Code(s): 903750777 Plan: Intractable headacheoccipital neuralgia: Patient did respond positively to IV Solu-Medrol infusion. Patient did return to baseline/head pain to a tolerable level. CT angiogram negative unremarkable EEG: Unremarkable Right cervical spine: Unremarkable X-ray Cervical spine noted ligamentous laxity prescribe: Topamax 50 mg twice a day titration for patients migraine prophylaxis Prescribe: Imitrex 100 mg, 1 tab at onset repeat every 6-8 hours, max 2 in 24 hours. Reassess with her in the outpatient setting. Cervicalgia/cervical facet pain: as noted #1 above Left upper and lower extremities weakness: Further workup may be required in the outpatient setting for more definitive etiology. At this time, CVA has been ruled out. Uncontrolled hypertension: Defer to primary team for management. STATUS: Patient will be cleared for discharge from a neurological standpoint. Patient to contact our office within 10 days for follow up. I have discussed the plan of care with the physician prior to implementation and he agrees with the plan as implemented.
[2018-02-26] MEDS ORDERED: TOPIRAMATE 25 MG TAB PO SCH (09:00)
== END 2018-02-25 14:35 | disposition home or self-care (01) ==
LOC: EC 20:09 → 3OBS 02-23 01:22
PROVIDERS: ADMIT Internal Medicine; ATTEND Internal Medicine
DX: M54.81 Occipital neuralgia (principal); I16.0 Hypertensive urgency; F41.9 Anxiety disorder, unspecified; R29.818 Other symptoms and signs involving the nervous system; I11.9 Hypertensive heart disease without heart failure; G43.909 Migraine, unspecified, not intractable, without status migrainosus; D64.9 Anemia, unspecified; E03.9 Hypothyroidism, unspecified; R53.1 Weakness; M54.2 Cervicalgia; K59.09 Other constipation; K21.9 Gastro-esophageal reflux disease without esophagitis; M79.7 Fibromyalgia; Z79.890 Hormone replacement therapy; Z79.899 Other long term (current) drug therapy; Z88.0 Allergy status to penicillin; Z91.040 Latex allergy status; Z91.018 Allergy to other foods; Z91.013 Allergy to seafood; Z98.51 Tubal ligation status; Z82.49 Family history of ischemic heart disease and other diseases of the circulatory system
CPT/HCPCS: 96375 ×6; 96372 ×2; 99285 ×2; 96365; 96366 ×2; 96367; 96376; 36415 ×2; 95816; 93005; 80048; 84484; 85025; 81025; 72052; 71046; 70496; 70551; 72141; G0378 ×3; S0183; J3030; J2060 ×2; J1200; J2765 ×2; J2930 ×2; J1885; J3475; Q9967

== ENCOUNTER → 2018-03-16 | Outpatient (CLI) | payer OTHER ==
[2018-03-16 12:16] LABS: Anisocytosis Slight; HGB 8.5 gm/dL (11.4-16.0); Hypochromasia Marked; MCH 18.5 pg (25.0-35.0); MCHC 27.4 g/dL (31.0-37.0); MCV 67.4 fL (80.0-100.0); Mean Platelet Volume 6.6; Microcytosis Marked; Platelet Count 463 k/uL (150-450); RDW 18.2 % (11.5-15.5); WBC 5.2 k/uL (3.8-10.6)
--- NOTE | 2018-03-16 13:03 | US ---
EXAMINATION TYPE: US pelvic complete DATE OF EXAM: 03/16/2018 COMPARISON: CLINICAL HISTORY: N92.1 Pelvic Pain. Heavy menses, x 3. Pain mid cycle. Tubal clamps. TECHNIQUE: Transvaginal (TV) and Transabdominal (TA) . Transabdominal sonographic images of the pel vis were acquired. Date of LMP: 03/06/2018, EXAM MEASUREMENTS: Uterus: 10.2 x 5.6 x 4.6 cm Endometrial Stripe: 0.5 cm Right Ovary: 2.9 x 2.0 x 1.7 cm Left Ovary: 3.2 x 2.4 x 1.9 cm 1. Uterus: Anteverted Slightly heterogenous. 2. Endometrium: wnl 3. Right Ovary: follicles seen 4. Left Ovary: follicles seen 5. Bilateral Adnexa: wnl 6. Posterior cul-de-sac: no free fluid IMPRESSION: 1. Nonspecific myometrial heterogeneity. 2. Small ovarian follicles.
== END | disposition home or self-care (01) ==
LOC: RADUSWWP 10:34
PROVIDERS: ATTEND Internal Medicine
DX: N83.02 Follicular cyst of left ovary (principal); N83.01 Follicular cyst of right ovary; D64.9 Anemia, unspecified
CPT/HCPCS: 36415; 76856; 82607; 82728; 82746; 83540; 85027

== ENCOUNTER → 2018-03-31 | Outpatient (CLI) | payer OTHER ==
[2018-03-31 13:37] VITALS: BP 155/95; PULSE 87; TEMP 99; BMI 24.5
--- NOTE | 2018-03-31 14:47 | P.HPOB ---
History of Present Illness H&P Date: 03/31/18 Chief Complaint: The patient is here for her routine gynecologic exam. This is a 32-year-old with an LMP of 03/15/2018. The patient is status post tubal ligation. She states or periods have gotten heavier and longer after her tubal ligation. Her menses have gradually gotten extremely heavy. Menses are regular every month. Menses typically last about 6 days with 4 or 5 days of very heavy flow. On her heavy flow days she can soak through her protection within minutes. She has to sleep with to pads and a towel on the heavy days. She has a long history of anemia. She also states she has slow clotting where she can bleed for a very long time, even with something as simple as a paper cut. She is scheduled to see Dr. Pino, the hematologists, tomorrow. She is but has been seeing somebody recently. She has been infrequently sexually active and did use condoms when she was sexually active. She also believes she has had frequent yeast infections with vaginal discharge and pruritus. She has used Monistat suppositories and creams for this. She currently does not think she has a yeast infection. Review of Systems A few years ago she did lose 100 pounds with diet and exercises. Her weight has been fairly stable since about 2014. She denies respiratory, cardiac, or G.I. problems. Past Medical History Past Medical History: Fibromyalgia, GERD/Reflux, Hypertension, Thyroid Disorder (Hypothyroid) Additional Past Medical History / Comment(s): Migrane headaches, iron deficiency anemia, chronic constipation, [place] R ear (had ear infections). 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 She does have a history of menorrhagia which has gradually gotten worse since the time of her tubal ligation. History of Any Multi-Drug Resistant Organisms: None Reported Past Surgical History: Breast Surgery (Right breast biopsy), Section ( x3), Tubal Ligation Additional Past Surgical History / Comment(s): Diagnostic lap exam with excision of L paratubal cyst, R breast benign lump, surgery for left ectopic . Past Anesthesia/Blood Transfusion Reactions: No Reported Reaction, Motion Sickness Past Psychological History: Anxiety Smoking Status: Never smoker Past Alcohol Use History: None Reported, Rare (One per month.) Past Drug Use History: None Reported Additional History: Pt resides with her 4 children. Two of her children are special needs. 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 She is . - Past Family History Father History Unknown: Yes Additional Family Medical History / Comment(s): Pt was raised in foster care. Mother History Unknown: Yes Additional Family Medical History / Comment(s): Pt was raised in foster care. Maternal grandmother had esophageal cancer. Medications and Allergies Home Medications Medication Instructions Recorded Confirmed Type Levothyroxine Sodium [Synthroid] 25 mcg PO DAILY 05/31/15 03/31/18 History Pregabalin [Lyrica] 150 mg PO TID 05/31/15 03/31/18 History Lisinopril 10 mg PO BID 06/05/15 03/31/18 History ALPRAZolam [Xanax] 0.25 mg PO BID PRN 11/14/16 03/31/18 History Atenolol [Tenormin] 25 mg PO DAILY 09/18/17 03/31/18 History amLODIPine [Norvasc] 5 mg PO DAILY 09/18/17 03/31/18 History SUMAtriptan SUCCINATE [Imitrex] 100 mg PO PRN MDD q6-8 hrs, max 2 02/25/18 History in 24 hrs Topiramate [Topamax] 50 mg PO BID 02/25/18 03/31/18 History Ibuprofen [Motrin] PO RT-Q8H 03/31/18 History Iron PO BID 03/31/18 History Allergies Allergy/AdvReac Type Severity Reaction Status Date / Time amoxicillin [Amoxicillin] Allergy Unknown Verified 03/31/18 13:34 latex Allergy Rash/Hives Verified 03/31/18 13:34 Penicillins Allergy Unknown Verified 03/31/18 13:34 shellfish derived [Shellfish] Allergy Anaphylaxis Verified 03/31/18 13:34 tree nut Allergy Unknown Verified 03/31/18 13:34 Exam Vital Signs Temp Pulse BP 03/31/18 13:35 99.0 F 87 155/95 Intake and Output 03/30/18 03/31/18 03/31/18 22:59 06:59 14:59 Other: Weight 58.967 kg Height 5'1", BMI 24.6. This is a well-developed well-nourished white female who is alert and oriented times 3 in no acute distress. HEENT: Within normal limits. NECK: Supple without mass or thyromegaly. CHEST AND LUNGS: Clear to auscultation. HEART: Regular rate and rhythm. BREASTS: Are without mass or discharge. AXILLARY EXAM: Negative for adenopathy. BACK: Negative for CVA tenderness. ABDOMEN: Soft, without palpable masses. There is minimal left lower quadrant tenderness without rebound. The abdomen is nondistended PELVIC EXAM: Normal external genitalia. Cervix and vagina appear normal. There is no unusual discharge. There is no evidence of prolapse. The uterus is anteverted, nongravid size and nontender. There are no palpable adnexal masses or tenderness. RECTAL EXAM: rectovaginal exam is negative for mass or tenderness and is negative for occult blood. EXTREMITIES: Nontender. Additional studies: pelvic ultrasound was done on 03/16/2018. A nonspecific heterogeneous uterus was noted. IMPRESSION: 1. 32-year-old female with worsening menorrhagia without any significant physical findings at this time. 2. History of anemia which may be related to her menorrhagia. Possible coagulopathy with history of difficulty clotting for simple cuts and history of blood transfusion with a section. 3. Probable recurrent Katy vaginitis, currently without symptoms or signs of vaginitis. 4. The patient has completed childbearing in the status post tubal sterilization. PLAN: 1. Pap smear was performed. 2. Self breast awareness was discussed with the patient. 3. Diflucan 150 mg PO times 1 when she develops typical yeast infection symptoms. The prescription will be sent to [facility] pharmacy in [place]. There will be 4 refills on this. She will make an appointment if her symptoms are not improving when she takes the medication. 4. She has an appointment with Dr. Pino, the licensed bondsman, regarding her anemia and heavy bleeding. She will also let him know about her difficulties clotting with simple skin cuts. 5. After her hematologic evaluation, we will consider referral for possible surgical treatment. We have discussed options including endometrial ablation and hysterectomy. 6. She will also returning one year and PRN.
== END | disposition home or self-care (01) ==
LOC: WWCWWP 13:18
PROVIDERS: ATTEND Obstetrics & Gynecology
DX: Z53.9 Procedure and treatment not carried out, unspecified reason (principal)

== ENCOUNTER → 2018-05-08 | Outpatient (CLI) | payer OTHER ==
[2018-05-08 15:00] LABS: Anisocytosis Marked; Basophils # (A) 0.1 k/uL (0-0.2); Basophils % (A) 1 %; Eosinophils # (A) 0.3 k/uL (0-0.7); Eosinophils % (A) 6 %; HCT 40.9 % (34.0-46.0); Hypochromasia Marked; Lymphocytes # (A) 1.8 k/uL (1.0-4.8); Lymphocytes % (A) 31 %; MCH 22.5 pg (25.0-35.0); MCHC 29.1 g/dL (31.0-37.0); Mean Platelet Volume 7.1; Microcytosis Marked; Monocytes # (A) 0.3 k/uL (0-1.0); Monocytes % (A) 5 %; Neutrophils # (A) 3.1 k/uL (1.3-7.7); Neutrophils % (A) 55 %; Platelet Count 336 k/uL (150-450); RBC 5.29 m/uL (3.80-5.40); WBC 5.7 k/uL (3.8-10.6)
[2018-05-08 15:04] LABS: HGB 11.9 gm/dL (11.4-16.0); MCV 77.3 fL (80.0-100.0); RDW 25.2 % (11.5-15.5)
== END | disposition home or self-care (01) ==
LOC: LABPAT 13:35
PROVIDERS: ATTEND Obstetrics & Gynecology
DX: Z01.812 Encounter for preprocedural laboratory examination (principal)
CPT/HCPCS: 36415; 85025

== ENCOUNTER 2018-05-12 06:29 | Day surgery (SDC) | payer OTHER ==
[2018-05-08 11:12] VITALS: BMI 24.7
--- NOTE | 2018-05-11 17:02 | P.HPOB ---
History of Present Illness H&P Date: 05/11/18 Chief Complaint: Menorrhagia Monique is a 32-year-old female 3 para 3 with prior sections and tubal ligation. She has been having increased heavy vaginal bleeding over the last 7 years which has gotten significantly worse in the last 6 months. She saw another information systems administrator who recommended treatment but did not do treatment as there office information systems administrator only. Likely discussion was held with the patient on treatment options including progesterone IUD or control pills, D&C with hysteroscopy NovaSure, even potentially hysterectomy. She notes that prior surgeon's had recommended hysterectomy, however based on her ultrasound and symptoms she is a good candidate for NovaSure. We'll plan D&C with hysteroscopy and NovaSure ablation as this can be done relatively quickly and safely and if this does not control her bleeding then she may need to move on to hysterectomy. She is symptomatically anemic and has seen hematology and receives iron infusions. Risks/benefits alternatives were discussed with the patient in detail and did include but were not limited to bleeding/infection/ pain/post ablative syndrome/even potentially damage to the bladder secondary to 3 prior surgeries i.e., thermal injury. Past Medical History Past Medical History: Fibromyalgia, GERD/Reflux, Hypertension, Thyroid Disorder Additional Past Medical History / Comment(s): Migrane headaches, iron deficiency anemia, chronic constipation, [place] R ear (had ear infections). 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 She does have a history of menorrhagia which has gradually gotten worse since the time of her tubal ligation. History of Any Multi-Drug Resistant Organisms: None Reported Past Surgical History: Breast Surgery, Section, Tubal Ligation Additional Past Surgical History / Comment(s): Diagnostic lap exam with excision of L paratubal cyst, R breast benign lump, surgery for left ectopic . Past Anesthesia/Blood Transfusion Reactions: No Reported Reaction, Motion Sickness Smoking Status: Never smoker - Past Family History Father History Unknown: Yes Additional Family Medical History / Comment(s): Pt was raised in foster care. Mother History Unknown: Yes Additional Family Medical History / Comment(s): Pt was raised in foster care. Maternal grandmother had esophageal cancer. Medications and Allergies Home Medications Medication Instructions Recorded Confirmed Type Levothyroxine Sodium [Synthroid] 25 mcg PO DAILY 05/31/15 05/08/18 History Pregabalin [Lyrica] 150 mg PO TID 05/31/15 05/08/18 History Lisinopril 10 mg PO BID 06/05/15 05/08/18 History ALPRAZolam [Xanax] 0.25 mg PO BID PRN 11/14/16 05/08/18 History Atenolol [Tenormin] 25 mg PO DAILY 09/18/17 05/08/18 History amLODIPine [Norvasc] 5 mg PO DAILY 09/18/17 05/08/18 History Fluconazole [Diflucan] 150 mg PO ONCE #1 tab 03/31/18 05/08/18 Rx Ibuprofen [Motrin] 800 mg PO RT-Q8H 03/31/18 05/08/18 History Iron 18 mg PO BID 03/31/18 05/08/18 History Allergies Allergy/AdvReac Type Severity Reaction Status Date / Time amoxicillin [Amoxicillin] Allergy RACING Verified 05/08/18 11:07 HEART latex Allergy Rash/Hives Verified 04/28/18 10:10 Penicillins Allergy RACING Verified 05/08/18 11:07 HEART shellfish derived [Shellfish] Allergy Anaphylaxis Verified 04/28/18 10:10 tree nut Allergy Anaphylaxis Verified 05/08/18 11:07 Exam Osteopathic Statement: *. No significant issues noted on an osteopathic structural exam other than those noted in the History and Physical/Consult. - OBG Physical Exam Breast: both: normal (no masses) Abdomen: bowel sounds normal, no diffuse tenderness, no bruit present, no guarding noted, no hepatomegaly, no splenomegaly, no mass Vulva: both: normal Vagina: normal moisture, no discharge Cervix: no lesion, no discharge Uterus: normal size, normal contour Adnexa: both: normal Anus/Rectum: normal perianal skin, no rectal mass, no hemorrhoids, heme negative
[~2018-05-12 06:29] MED LIST: Pre Op ABX Message 1 EACH MISC MISCELLANE ONE
[2018-05-12] MEDS ORDERED: LACTATED RINGERS 1,000 ML IV ONE (07:22)
[2018-05-12] MEDS ORDERED: LIDOCAINE 1% 20 ML VIAL (10MG/ML) FOR IV START INTRADERMA ONE (07:23)
[2018-05-12] MEDS ORDERED: ONDANSETRON 4 MG/2 ML VIAL IVP ONE (07:23)
[2018-05-12] MEDS ORDERED: DEXAMETHASONE SOD PHOS (MDV) 100 MG/10 ML VIAL IV ONE (07:23)
[2018-05-12] MEDS ORDERED: hydrALAZINE HCL 20 MG/ML 1 ML VIAL IV ONE (07:29)
[2018-05-12] MEDS ORDERED: fentaNYL (PF) 50 MCG/ML 2 ML AMP ONE (07:36)
[2018-05-12] MEDS ORDERED: MIDAZOLAM 2 MG/2 ML VIAL ONE (07:36)
[2018-05-12] MEDS ORDERED: KETOROLAC 30 MG/ML 1 ML VIAL ONE (07:36)
[2018-05-12] MEDS ORDERED: LIDOCAINE 1% INJ 10MG/ML (20 ML MDV) ONE (07:36)
[2018-05-12] MEDS ORDERED: PROPOFOL 10 MG/ML 20 ML VIAL IV ONE (07:36)
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
[2018-05-12 08:18] VITALS: TEMP 98.3
[2018-05-12 08:28] VITALS: RESP 16
[2018-05-12] MEDS ORDERED: HYDROmorphone 1 MG/ML 1 ML SYRINGE IVP ONE ×2 (08:33→08:42)
[2018-05-12 09:52] VITALS: BP 130/84; PULSE 67
== END 2018-05-12 10:12 | disposition home or self-care (01) ==
LOC: OR 06:29
PROVIDERS: ATTEND Obstetrics & Gynecology
DX: N92.0 Excessive and frequent menstruation with regular cycle (principal); N84.0 Polyp of corpus uteri; D50.9 Iron deficiency anemia, unspecified; M79.7 Fibromyalgia; K21.9 Gastro-esophageal reflux disease without esophagitis; I10 Essential (primary) hypertension; E07.9 Disorder of thyroid, unspecified; G43.909 Migraine, unspecified, not intractable, without status migrainosus; H91.91 Unspecified hearing loss, right ear; K59.09 Other constipation; I16.0 Hypertensive urgency; M54.81 Occipital neuralgia; Z98.51 Tubal ligation status; Z79.1 Long term (current) use of non-steroidal anti-inflammatories (NSAID); Z79.890 Hormone replacement therapy; Z79.899 Other long term (current) drug therapy; Z91.040 Latex allergy status; Z91.018 Allergy to other foods; Z88.0 Allergy status to penicillin; Z91.013 Allergy to seafood
CPT/HCPCS: 81025; 88305; 58563; J2250; J0360; J2405; J2001; J3010; J1885; J1170; J1100; J2704

== ENCOUNTER 2018-07-17 17:17 | Emergency (ER) | payer OTHER ==
[2018-07-17 17:31] VITALS: TEMP 97.7
[2018-07-17] MEDS ORDERED: ONDANSETRON ODT 4 MG TAB PO STA (17:54)
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
[2018-07-17] MEDS ORDERED: amLODIPine 5 MG TAB PO STA (18:24)
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
[2018-07-17 19:18] VITALS: BP 166/117; PULSE 80; RESP 18
== END 2018-07-17 19:41 | disposition home or self-care (01) ==
LOC: EC 17:17
DX: S06.0X0A Concussion without loss of consciousness, initial encounter (principal); I10 Essential (primary) hypertension; K59.09 Other constipation; D50.9 Iron deficiency anemia, unspecified; M79.7 Fibromyalgia; E07.9 Disorder of thyroid, unspecified; F41.9 Anxiety disorder, unspecified; H91.91 Unspecified hearing loss, right ear; Z88.0 Allergy status to penicillin; Z91.013 Allergy to seafood; Z91.018 Allergy to other foods; Z91.040 Latex allergy status; Z79.1 Long term (current) use of non-steroidal anti-inflammatories (NSAID); Z79.899 Other long term (current) drug therapy; Z86.69 Personal history of other diseases of the nervous system and sense organs; Z98.51 Tubal ligation status; Z87.42 Personal history of other diseases of the female genital tract; V49.49XA Driver injured in collision with other motor vehicles in traffic accident, initial encounter; Y93.89 Activity, other specified; Y92.410 Unspecified street and highway as the place of occurrence of the external cause
CPT/HCPCS: 70450; 72125; 99284

== ENCOUNTER → 2018-09-17 | Outpatient (CLI) | payer OTHER ==
[2018-09-17 20:23] LABS: Hemoglobin A1C 5.2 % (4.0-6.0)
== END | disposition home or self-care (01) ==
LOC: LABWHC1 08:33
PROVIDERS: ATTEND Internal Medicine
DX: E11.9 Type 2 diabetes mellitus without complications (principal)
CPT/HCPCS: 36415; 82947; 83036

== ENCOUNTER 2019-02-09 15:11 | Emergency (ER) | payer OTHER ==
[2019-02-09 15:16] VITALS: TEMP 98.1
--- NOTE | 2019-02-09 16:00 | ED ---
General Adult HPI - General Chief complaint: Recheck/Abnormal Lab/Rx Stated complaint: Low iron Time Seen by Provider: 02/09/19 15:15 Source: patient, RN notes reviewed Mode of arrival: ambulatory Limitations: no limitations - History of Present Illness Initial comments: This is a 33-year-old female presents emergency Department stating that for the week prior she's been feeling weak. Patient states she has a history of anemia and she is wondering if she is again anemic. Patient denies any fever chills or cough per patient denies chance of breath or difficulty breathing. Patient denies any abdominal pain. Patient denies any nausea vomiting or diarrhea. Patient denies any rashes. Patient denies headache patient denies lightheadedness. Patient states she just has a general sensation of feeling weak patient has no focal deficit. - Related Data Home Medications Medication Instructions Recorded Confirmed Pregabalin [Lyrica] 150 mg PO TID 05/31/15 02/09/19 ALPRAZolam [Xanax] 0.25 mg PO BID PRN 11/14/16 02/09/19 Naproxen 500 mg PO BID 02/09/19 02/09/19 Verapamil [Isoptin] 40 mg PO Q12H 02/09/19 02/09/19 Allergies Allergy/AdvReac Type Severity Reaction Status Date / Time amoxicillin [Amoxicillin] Allergy RACING Verified 02/09/19 16:38 HEART latex Allergy Rash/Hives Verified 02/09/19 16:38 Penicillins Allergy RACING Verified 02/09/19 16:38 HEART shellfish derived [Shellfish] Allergy Anaphylaxis Verified 02/09/19 16:38 tree nut Allergy Anaphylaxis Verified 02/09/19 16:38 Review of Systems ROS Statement: Those systems with pertinent positive or pertinent negative responses have been documented in the HPI. ROS Other: All systems not noted in ROS Statement are negative. Past Medical History Past Medical History: Fibromyalgia, GERD/Reflux, Hypertension, Thyroid Disorder Additional Past Medical History / Comment(s): Migrane headaches, iron deficiency anemia, chronic constipation, [place] R ear (had ear infections). 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 She does have a history of menorrhagia which has gradually gotten worse since the time of her tubal ligation. History of Any Multi-Drug Resistant Organisms: None Reported Past Surgical History: Breast Surgery, Section, Tubal Ligation Additional Past Surgical History / Comment(s): Diagnostic lap exam with excision of L paratubal cyst, R breast benign lump, surgery for left ectopic . Past Anesthesia/Blood Transfusion Reactions: No Reported Reaction, Motion Sickness Past Psychological History: Anxiety Smoking Status: Never smoker Past Alcohol Use History: None Reported Past Drug Use History: None Reported - Past Family History Father History Unknown: Yes Additional Family Medical History / Comment(s): Pt was raised in foster care. Mother History Unknown: Yes Additional Family Medical History / Comment(s): Pt was raised in foster care. Maternal grandmother had esophageal cancer. General Exam - General Exam Comments Initial Comments: GENERAL: Patient is well-developed and well-nourished. Patient is nontoxic and well- hydrated and is in no acute distress. ENT: Neck is soft and supple. No significant lymphadenopathy is noted. Oropharynx is clear. Moist mucous membranes. Neck has full range of motion without eliciting any pain. EYES: The sclera were anicteric and conjunctiva were pink and moist. Extraocular movements were intact and pupils were equal round and reactive to light. Eyelids were unremarkable. PULMONARY: Unlabored respirations. Good breath sounds bilaterally. No audible rales rhonchi or wheezing was noted. CARDIOVASCULAR: There is a regular rate and rhythm without any murmurs gallops or rubs. ABDOMEN: Soft and nontender with normal bowel sounds. No palpable organomegaly was noted. There is no palpable pulsatile mass. SKIN: Skin is clear with no lesions or rashes and otherwise unremarkable. NEUROLOGIC: Patient is alert and oriented x3. Cranial nerves II through XII are grossly intact. Motor and sensory are also intact. Normal speech, volume and content. Symmetrical smile. MUSCULOSKELETAL: Normal extremities with adequate strength and full range of motion. No lower extremity swelling or edema. No calf tenderness. LYMPHATICS: No significant lymphadenopathy is noted PSYCHIATRIC: Normal psychiatric evaluation. Limitations: no limitations Course Vital Signs 02/09/19 15:12 Temperature 98.1 F Pulse Rate 80 Respiratory 18 Rate Blood Pressure 167/120 O2 Sat by Pulse 99 Oximetry Medical Decision Making - Medical Decision Making EKG shows normal sinus rhythm at 75 bpm NH interval is 136 QRS is 76 QT interval 414 QTC is 462. Patient's EKG shows no ST segment elevation or depression. - Lab Data Result diagrams: 02/09/19 15:54 02/09/19 15:54 Lab Results 02/09/19 02/09/19 Range/Units 15:54 15:54 WBC 8.6 (3.8-10.6) k/uL RBC 5.20 (3.80-5.40) m/uL Hgb 15.9 (11.4-16.0) gm/dL Hct 47.5 H (34.0-46.0) % MCV 91.4 (80.0-100.0) fL MCH 30.5 (25.0-35.0) pg MCHC 33.4 (31.0-37.0) g/dL RDW 12.7 (11.5-15.5) % Plt Count 264 (150-450) k/uL Neutrophils % 68 % Lymphocytes % 22 % Monocytes % 4 % Eosinophils % 5 % Basophils % 1 % Neutrophils # 5.9 (1.3-7.7) k/uL Lymphocytes # 1.9 (1.0-4.8) k/uL Monocytes # 0.4 (0-1.0) k/uL Eosinophils # 0.4 (0-0.7) k/uL Basophils # 0.0 (0-0.2) k/uL Sodium 140 (137-145) mmol/L Potassium 4.0 (3.5-5.1) mmol/L Chloride 104 (98-107) mmol/L Carbon Dioxide 25 (22-30) mmol/L Anion Gap 11 mmol/L BUN 9 (7-17) mg/dL Creatinine 0.59 (0.52-1.04) mg/dL Est GFR (CKD-EPI)AfAm >90 (>60 ml/min/1.73 sqM) Est GFR (CKD-EPI)NonAf >90 (>60 ml/min/1.73 sqM) Glucose 104 H (74-99) mg/dL Calcium 9.3 (8.4-10.2) mg/dL Total Bilirubin 0.6 (0.2-1.3) mg/dL AST 40 H (14-36) U/L ALT 32 (9-52) U/L Alkaline Phosphatase 76 (38-126) U/L Total Protein 7.6 (6.3-8.2) g/dL Albumin 4.5 (3.5-5.0) g/dL TSH 3.710 (0.465-4.680) mIU/L Free T4 1.30 (0.78-2.19) ng/dL Disposition Clinical Impression: Weakness Disposition: HOME SELF-CARE Condition: Good Instructions (If sedation given, give patient instructions): Weakness (ED) Is patient prescribed a controlled substance at d/c from ED?: No Referrals: None,Stated [Primary Care Provider] - 1-2 days Time of Disposition: 16:53
[2019-02-09 16:04] LABS: Basophils % (A) 1 %; Eosinophils # (A) 0.4 k/uL (0-0.7); Eosinophils % (A) 5 %; HCT 47.5 % (34.0-46.0); HGB 15.9 gm/dL (11.4-16.0); Lymphocytes # (A) 1.9 k/uL (1.0-4.8); Lymphocytes % (A) 22 %; MCH 30.5 pg (25.0-35.0); MCHC 33.4 g/dL (31.0-37.0); MCV 91.4 fL (80.0-100.0); Mean Platelet Volume 7.1; Monocytes # (A) 0.4 k/uL (0-1.0); Monocytes % (A) 4 %; Neutrophils # (A) 5.9 k/uL (1.3-7.7); Neutrophils % (A) 68 %; Platelet Count 264 k/uL (150-450); RDW 12.7 % (11.5-15.5); WBC 8.6 k/uL (3.8-10.6)
[2019-02-09 16:13] LABS: ALT 32 U/L (9-52); AST 40 U/L (14-36); African American GFR (CKD) >90 (>60 ml/min/1.73 sqM); Albumin 4.5 g/dL (3.5-5.0); Alkaline Phosphatase 76 U/L (38-126); Anion Gap 11 mmol/L; Blood Urea Nitrogen 9 mg/dL (7-17); Calcium 9.3 mg/dL (8.4-10.2); Carbon Dioxide 25 mmol/L (22-30); Chloride 104 mmol/L (98-107); Glucose 104 mg/dL (74-99); Sodium 140 mmol/L (137-145); Total Bilirubin 0.6 mg/dL (0.2-1.3); Total Protein 7.6 g/dL (6.3-8.2)
[2019-02-09] MEDS ORDERED: IPRATROPIUM-ALBUTEROL 3 ML NEB INHALATION PRN (16:56)
[2019-02-09 17:18] VITALS: BP 179/100; PULSE 79; RESP 16
== END 2019-02-09 17:18 | disposition home or self-care (01) ==
LOC: EC 15:11
DX: R53.1 Weakness (principal); I10 Essential (primary) hypertension; F41.9 Anxiety disorder, unspecified; Z79.1 Long term (current) use of non-steroidal anti-inflammatories (NSAID); Z79.899 Other long term (current) drug therapy; Z88.0 Allergy status to penicillin; Z91.040 Latex allergy status; Z91.013 Allergy to seafood; Z91.018 Allergy to other foods
CPT/HCPCS: 36415; 80053; 84439; 84443; 85025; 93005; 94640; 99283

== ENCOUNTER → 2019-03-04 | Outpatient (CLI) | payer OTHER ==
[2019-03-04 10:35] LABS: Basophils # (A) 0.1 k/uL (0-0.2); Basophils % (A) 1 %; Eosinophils # (A) 0.3 k/uL (0-0.7); Eosinophils % (A) 4 %; HCT 49.4 % (34.0-46.0); HGB 15.7 gm/dL (11.4-16.0); Lymphocytes # (A) 1.7 k/uL (1.0-4.8); Lymphocytes % (A) 25 %; MCH 29.7 pg (25.0-35.0); MCHC 31.8 g/dL (31.0-37.0); MCV 93.5 fL (80.0-100.0); Mean Platelet Volume 7.5; Monocytes # (A) 0.3 k/uL (0-1.0); Monocytes % (A) 4 %; Neutrophils # (A) 4.5 k/uL (1.3-7.7); Neutrophils % (A) 65 %; Platelet Count 288 k/uL (150-450); RBC 5.28 m/uL (3.80-5.40); WBC 6.9 k/uL (3.8-10.6)
[2019-03-04 16:36] LABS: Iron Saturation 33.33 (12.00-45.00)
[2019-03-04 16:50] LABS: Vitamin D 25 Hydroxy 23.9 ng/mL (30.0-100.0)
[2019-03-04 17:03] LABS: African American GFR (CKD) 111.5 (60.0-200.0); Albumin 4.6 g/dL (3.80-4.90); Anion Gap 11.8 mmol/L (4.00-12.00); BUN/Creat Ratio 12.5 Ratio (12.00-20.00); Calcium 9.5 mg/dL (8.7-10.3); Carbon Dioxide 24.2 mmol/L (21.6-31.8); Globulin 2.3 g/dL (1.6-3.3); Potassium 4.3 mmol/L (3.5-5.5); Total Bilirubin 0.4 mg/dL (0.2-1.2); Total Protein 6.9 g/dL (6.2-8.2)
== END | disposition home or self-care (01) ==
LOC: LABWHC1 09:23
PROVIDERS: ATTEND Internal Medicine
DX: D64.9 Anemia, unspecified (principal); I10 Essential (primary) hypertension; E55.9 Vitamin D deficiency, unspecified; E03.9 Hypothyroidism, unspecified
CPT/HCPCS: 36415; 80053; 82306; 82728; 83540; 83550; 84439; 84443; 85025

== ENCOUNTER → 2019-04-28 | Outpatient (CLI) | payer OTHER ==
--- NOTE | 2019-04-28 16:29 | US ---
EXAMINATION TYPE: US renal artery duplex complet DATE OF EXAM: 04/28/2019 COMPARISON: NONE CLINICAL HISTORY: I10 Hypertension. HTN for 14 years MEASUREMENTS: RENAL SIZE: Rt Kidney: 10.5 x 3.4 x 3.3cm Lt Kidney: 10.3 x 4.3 x 4.2cm RESISTANCE INDEX Right: 0.54 Left: 0.55 RA/AO RATIO (< 3.5 ) Right: 1.7 Left: 2.1 RA VELOCITY ( < 180 cm/s) Right: 143.1cm/s Left: 176.7cm/s Aorta and renals appear unremarkable. No evidence of renal artery stenosis as visualized at this time . Low resistive waveforms noted throughout IMPRESSION: No significant renal artery stenosis is evident based on velocities and ratios. The renal artery velo cities however are approaching elevated level status and milder narrowing is not excluded. Consider M RA of the medial arteries for additional evaluation.
== END | disposition home or self-care (01) ==
LOC: RADUSWWP 08:16
PROVIDERS: ATTEND Internal Medicine
DX: I10 Essential (primary) hypertension (principal); Z88.0 Allergy status to penicillin; Z91.013 Allergy to seafood; Z91.018 Allergy to other foods
CPT/HCPCS: 93975

== ENCOUNTER → 2019-05-12 | Outpatient (CLI) | payer OTHER ==
[2019-05-12 09:47] VITALS: BP 179/119; PULSE 78; RESP 16; TEMP 98.3; BMI 24.9
--- NOTE | 2019-05-12 10:39 | P.HPOB ---
History of Present Illness H&P Date: 05/12/19 Chief Complaint: The patient is here for her routine gynecologic exam. This is a 33-year-old 014 with an LMP of May 2018. The patient underwent an endometrial ablation on 05/12/2018. She has been essentially amenorrheic since then. She has had infrequent scant spotting about every 3 months. She is happy with her endometrial ablation. She is status post tubal ligation. The patient is without gynecologic complaints. Review of Systems The patient has gained 14 pounds over the last year. She denies respiratory or cardiac problems. GI: Chronic constipation. Past Medical History Past Medical History: Fibromyalgia, GERD/Reflux, Hypertension, Thyroid Disorder Additional Past Medical History / Comment(s): Chiari malformation. Migrane headaches, iron deficiency anemia, chronic constipation, [place] R ear (had ear infections). 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 Menorrhagia improved with endometrial ablation. History of Any Multi-Drug Resistant Organisms: None Reported Past Surgical History: Breast Surgery, Section, Tubal Ligation, Uterine Ablation Additional Past Surgical History / Comment(s): Diagnostic lap exam with excision of L paratubal cyst, R breast benign lump, surgery for left ectopic . Endometrial ablation 05/12/2018. Past Anesthesia/Blood Transfusion Reactions: No Reported Reaction, Motion Sickness Past Psychological History: Anxiety Additional Psychological History / Comment(s): Pt resides with her 4 children ages 7,8,10 and 13yrs. Two of her children are special needs. 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 Smoking Status: Never smoker Past Alcohol Use History: None Reported Past Drug Use History: None Reported Additional History: The patient is and is not seeing anybody at this time. 2 of her 4 children are special needs with autism. 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 - Past Family History Father History Unknown: Yes Family Medical History: Unable to Obtain Additional Family Medical History / Comment(s): Pt was raised in foster care. Mother History Unknown: Yes Family Medical History: Unable to Obtain Additional Family Medical History / Comment(s): Pt was raised in foster care. Maternal grandmother had esophageal cancer. Medications and Allergies Home Medications Medication Instructions Recorded Confirmed Type Pregabalin [Lyrica] 150 mg PO TID 05/31/15 02/09/19 History ALPRAZolam [Xanax] 0.25 mg PO BID PRN 11/14/16 02/09/19 History Verapamil [Isoptin] 40 mg PO Q12H 02/09/19 02/09/19 History Ibuprofen [Motrin] 800 mg PO DAILY 05/12/19 05/12/19 History Levothyroxine Sodium 25 mcg PO DAILY 05/12/19 05/12/19 History Lisinopril 20 mg PO BID 05/12/19 05/12/19 History Allergies Allergy/AdvReac Type Severity Reaction Status Date / Time amoxicillin [Amoxicillin] Allergy RACING Verified 02/09/19 16:38 HEART latex Allergy Rash/Hives Verified 05/12/19 09:48 Penicillins Allergy RACING Verified 02/09/19 16:38 HEART shellfish derived [Shellfish] Allergy Anaphylaxis Verified 02/09/19 16:38 tree nut Allergy Anaphylaxis Verified 05/12/19 09:48 Exam Vital Signs Temp Pulse Resp BP Pulse Ox 05/12/19 09:43 98.3 F 78 16 179/119 100 Intake and Output 05/11/19 05/12/19 05/12/19 22:59 06:59 14:59 Other: Weight 65.771 kg Repeat blood pressure 146/100. The patient states she has an appointment with Dr. Barajas immediately after this appointment and she plans to talk to him about her blood pressure. Height 5 feet 4.5 inches, weight 145 pounds, BMI 24.9. This is a well-developed well-nourished white female who is alert and oriented times 3 in no acute distress. HEENT: Within normal limits. NECK: Supple without mass or thyromegaly. CHEST AND LUNGS: Clear to auscultation. HEART: Regular rate and rhythm. BREASTS: Are without mass or discharge. AXILLARY EXAM: Negative for adenopathy. BACK: Negative for CVA tenderness. ABDOMEN: Soft, nontender, without palpable masses. PELVIC EXAM: Normal external genitalia. Cervix and vagina appear normal. There is no unusual discharge. There is no evidence of prolapse. The uterus is midposition, anteverted, nongravid size and nontender. There are no palpable adnexal masses or tenderness. RECTAL EXAM: Refused by the patient. EXTREMITIES: Nontender. IMPRESSION: 1. 33-year-old female who is status post tubal ligation who is amenorrheic since her endometrial ablation. 2. Normal gynecologic exam. 3. Elevated blood pressure. PLAN: 1. Pap smear was deferred since she had a normal one on 03/31/2018. 2. Self breast awareness was discussed with the patient. 3. We have discussed her elevated blood pressure. I have recommended that she check her blood pressure at home on a regular basis. She will be following up with Dr. Barajas immediately after this appointment to further discuss her blood pressure. She has an appointment with him. She states she is also being seen at [facility] for the Chiari malformation which was recently diagnosed and she was told she will be having surgery for this. She was told that this is the cause for her headaches and her hypertension. 4. She was advised to return in one year for her annual well woman exam.
== END ==
LOC: WWCWWP 08:50
PROVIDERS: ATTEND Obstetrics & Gynecology
DX: Z53.9 Procedure and treatment not carried out, unspecified reason (principal)

== ENCOUNTER → 2020-01-07 | Outpatient (CLI) | payer OTHER ==
[2020-01-07 10:35] LABS: Basophils # (A) 0.1 k/uL (0-0.2); Basophils % (A) 1 %; Eosinophils # (A) 0.3 k/uL (0-0.7); Eosinophils % (A) 3 %; HCT 49.7 % (34.0-46.0); HGB 15.9 gm/dL (11.4-16.0); Lymphocytes # (A) 1.5 k/uL (1.0-4.8); Lymphocytes % (A) 17 %; MCH 30.2 pg (25.0-35.0); MCHC 32.1 g/dL (31.0-37.0); MCV 94.3 fL (80.0-100.0); Mean Platelet Volume 7.6; Monocytes # (A) 0.4 k/uL (0-1.0); Monocytes % (A) 4 %; Neutrophils # (A) 6.9 k/uL (1.3-7.7); Neutrophils % (A) 75 %; Platelet Count 314 k/uL (150-450); RBC 5.28 m/uL (3.80-5.40); RDW 12.5 % (11.5-15.5); WBC 9.3 k/uL (3.8-10.6)
[2020-01-07 10:52] LABS: Appearance,Urine Cloudy (Clear); Bilirubin,Urine Negative (Negative); Blood,Urine Negative (Negative); Color,Urine Yellow; Glucose,Urine (UA) Negative (Negative); Hyaline Casts,Urine 3 /lpf (0-2); Ketones,Urine Negative (Negative); Leukocyte Esterase,Urine Negative (Negative); Mucus,Urine Occasional /hpf; Nitrite,Urine Negative (Negative); Protein,Urine Negative (Negative); RBC,Urine 1 /hpf (0-5); Specific Gravity,Urine 1.013 (1.001-1.035); Squamous Epithelial Cell,Urine 10 /hpf (0-4); Urobilinogen,Urine <2.0 mg/dL (<2.0); WBC,Urine 3 /hpf (0-5)
[2020-01-07 15:16] LABS: African American GFR (CKD) 130.1 (60.0-200.0); Albumin 4.6 g/dL (3.80-4.90); Albumin/Globulin Ratio 1.77 (1.60-3.17); Anion Gap 7.9 mmol/L (4.00-12.00); Calcium 9.4 mg/dL (8.7-10.3); Carbon Dioxide 28.1 mmol/L (21.6-31.8); Globulin 2.6 g/dL (1.6-3.3); Non-African American GFR(CKD) 112.3 (60.0-200.0); Total Bilirubin 0.3 mg/dL (0.2-1.2); Total Protein 7.2 g/dL (6.2-8.2)
[2020-01-07 19:02] LABS: INR 0.94 (0.90-1.11); Partial Thromboplastin Time 29.4 sec (24.7-29.9); Prothrombin Time 10.1 sec (9.9-11.9)
== END | disposition home or self-care (01) ==
LOC: LABWHC1 09:16
PROVIDERS: ATTEND Internal Medicine
DX: Z01.812 Encounter for preprocedural laboratory examination (principal); Q07.00 Arnold-Chiari syndrome without spina bifida or hydrocephalus
CPT/HCPCS: 36415; 80053; 81001; 85025; 85610; 85730

== ENCOUNTER → 2020-11-14 | Outpatient (CLI) | payer OTHER ==
[2020-11-14 20:32] LABS: Basophils # (A) 0.03 X 10*3/uL (0.00-0.10); Basophils % (A) 0.4 %; Eosinophils # (A) 0.57 X 10*3/uL (0.04-0.35); Eosinophils % (A) 7.1 %; HCT 46.2 % (37.2-46.3); HGB 14.9 g/dL (12.0-15.0); MCH 30.2 pg (27.0-32.0); MCHC 32.3 g/dL (32.0-37.0); MCV 93.7 fL (80.0-97.0); Mean Platelet Volume 11.2 fL (9.5-12.2); Monocytes % (A) 7.5 %; Neutrophils # (A) 4.75 X 10*3/uL (1.80-7.70); Neutrophils % (A) 59.3 %; Platelet Count 259 X 10*3/uL (140-440); RBC 4.93 X 10*6/uL (4.10-5.20); RDW 12.7 % (11.5-14.5); WBC 8.01 X 10*3/uL (4.50-10.00)
[2020-11-14 22:43] LABS: Erythrocyte Sedimentation Rate 7 mm/Hr (0-20)
[2020-11-15 00:38] LABS: African American GFR (CKD) 130.1 (60.0-200.0); Albumin 4.5 g/dL (3.80-4.90); Albumin/Globulin Ratio 1.88 (1.60-3.17); Anion Gap 10.5 mmol/L (4.00-12.00); BUN/Creat Ratio 12.86 Ratio (12.00-20.00); C Reactive Protein 1.2 mg/dL (0.0-0.8); Calcium 9.1 mg/dL (8.7-10.3); Carbon Dioxide 23.5 mmol/L (21.6-31.8); Globulin 2.4 g/dL (1.6-3.3); Non-African American GFR(CKD) 112.3 (60.0-200.0); Phosphorus 3.5 mg/dL (2.4-5.1); Potassium 4.3 mmol/L (3.5-5.5); Total Bilirubin 0.4 mg/dL (0.3-1.2); Total Protein 6.9 g/dL (6.2-8.2)
== END | disposition home or self-care (01) ==
LOC: LABWHC1 13:28
PROVIDERS: ATTEND Internal Medicine
DX: E87.8 Other disorders of electrolyte and fluid balance, not elsewhere classified (principal); I10 Essential (primary) hypertension
CPT/HCPCS: 36415; 80053; 83735; 84100; 85025; 85652; 86140

== ENCOUNTER 2021-04-10 15:43 | Inpatient (IN) | payer OTHER ==
[2021-04-10] MEDS ORDERED: SODIUM CHLORIDE 0.9% 500 ML 500 ML IV STA (16:55)
[2021-04-10 17:43] LABS: Appearance,Urine Clear (Clear); Basophils # (A) 0.1 k/uL (0-0.2); Basophils % (A) 1 %; Bilirubin,Urine Negative (Negative); Blood,Urine Negative (Negative); Color,Urine Light Yellow; Eosinophils # (A) 0.3 k/uL (0-0.7); Eosinophils % (A) 3 %; Glucose,Urine (UA) Negative (Negative); HCT 48.6 % (34.0-46.0); HGB 15.9 gm/dL (11.4-16.0); Ketones,Urine Negative (Negative); Leukocyte Esterase,Urine Negative (Negative); Lymphocytes # (A) 2.1 k/uL (1.0-4.8); Lymphocytes % (A) 21 %; MCH 30.7 pg (25.0-35.0); MCHC 32.8 g/dL (31.0-37.0); MCV 93.5 fL (80.0-100.0); Mean Platelet Volume 7.7; Monocytes # (A) 0.4 k/uL (0-1.0); Monocytes % (A) 4 %; Neutrophils % (A) 71 %; Nitrite,Urine Negative (Negative); PH, Urine 6.5 (5.0-8.0); Platelet Count 299 k/uL (150-450); Protein,Urine Negative (Negative); RBC 5.19 m/uL (3.80-5.40); RDW 12.5 % (11.5-15.5); Specific Gravity,Urine 1.005 (1.001-1.035); Urobilinogen,Urine <2.0 mg/dL (<2.0); WBC 9.9 k/uL (3.8-10.6)
[2021-04-10 17:53] LABS: ALT 43 U/L (4-34); AST 44 U/L (14-36); African American GFR (CKD) >90 (>60 ml/min/1.73 sqM); Albumin 4.7 g/dL (3.5-5.0); Alkaline Phosphatase 101 U/L (38-126); Anion Gap 12 mmol/L; Blood Urea Nitrogen 6 mg/dL (7-17); Calcium 9.8 mg/dL (8.4-10.2); Carbon Dioxide 23 mmol/L (22-30); Chloride 104 mmol/L (98-107); Glucose 87 mg/dL (74-99); Magnesium 2.2 mg/dL (1.6-2.3); Non-African American GFR(CKD) >90 (>60 ml/min/1.73 sqM); Potassium 4.2 mmol/L (3.5-5.1); Sodium 139 mmol/L (137-145); Total Bilirubin 0.5 mg/dL (0.2-1.3); Total Protein 8.1 g/dL (6.3-8.2)
[2021-04-10 17:57] LABS: INR 0.9 (<1.2); Partial Thromboplastin Time 24.8 sec (22.0-30.0); Prothrombin Time 9.7 sec (9.0-12.0)
--- NOTE | 2021-04-10 18:00 | ED ---
General Adult HPI - General Chief complaint: Dizziness Stated complaint: hypertensive Time Seen by Provider: 04/10/21 16:47 Source: patient, RN notes reviewed, old records reviewed Mode of arrival: ambulatory Limitations: no limitations - History of Present Illness Initial comments: 35 yo female visiting for elevated blood pressure. She states that her blood pressure typically runs high around 200 systolic. She states she is on 5 different antihypertensive medications but she does not know the names of any of these medications. She states that she will sometimes not take the medication because her blood pressure is low but she states that she did take the medications today. She was seen by her primary care physician who apparently recommended that she present to the emergency department for laboratory testing and to evaluate kidney function. She states she has had significant workup as an outpatient for her hypertension. Significant headache. Denies chest pain. Denies focal numbness or weakness. Denies abdominal pain. - Related Data Home Medications Medication Instructions Recorded Confirmed Pregabalin [Lyrica] 150 mg PO TID 05/31/15 05/12/19 ALPRAZolam [Xanax] 0.25 mg PO BID PRN 11/14/16 05/12/19 Verapamil [Isoptin] 40 mg PO Q12H 02/09/19 05/12/19 Cholecalciferol [Vitamin D3 (25 1,000 unit PO DAILY 05/12/19 05/12/19 Mcg = 1000 Iu)] Ibuprofen [Motrin] 800 mg PO DAILY 05/12/19 05/12/19 Iron 18 mg PO BID 05/12/19 05/12/19 Levothyroxine Sodium 25 mcg PO DAILY 05/12/19 05/12/19 Magnesium 200 mg PO DAILY 05/12/19 05/12/19 lisinopriL 20 mg PO BID 05/12/19 05/12/19 Allergies Allergy/AdvReac Type Severity Reaction Status Date / Time amoxicillin [Amoxicillin] Allergy RACING Verified 04/10/21 16:32 HEART latex Allergy Rash/Hives Verified 04/10/21 16:32 Penicillins Allergy RACING Verified 04/10/21 16:32 HEART shellfish derived [Shellfish] Allergy Anaphylaxis Verified 04/10/21 16:32 tree nut Allergy Anaphylaxis Verified 04/10/21 16:32 Review of Systems ROS Statement: Those systems with pertinent positive or pertinent negative responses have been documented in the HPI. ROS Other: All systems not noted in ROS Statement are negative. Past Medical History Past Medical History: Fibromyalgia, GERD/Reflux, Hypertension, Thyroid Disorder Additional Past Medical History / Comment(s): Chiari malformation. Migrane headaches, iron deficiency anemia, chronic constipation, [place] R ear (had ear infections). 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 Menorrhagia improved with endometrial ablation. History of Any Multi-Drug Resistant Organisms: None Reported Past Surgical History: Breast Surgery, Section, Tubal Ligation, Uterine Ablation Additional Past Surgical History / Comment(s): Diagnostic lap exam with excision of L paratubal cyst, R breast benign lump, surgery for left ectopic . Endometrial ablation 05/12/2018. Past Anesthesia/Blood Transfusion Reactions: No Reported Reaction, Motion Sickness Past Psychological History: Anxiety Smoking Status: Never smoker Past Alcohol Use History: None Reported Past Drug Use History: None Reported - Past Family History Father History Unknown: Yes Family Medical History: Unable to Obtain Additional Family Medical History / Comment(s): Pt was raised in foster care. Mother History Unknown: Yes Family Medical History: Unable to Obtain Additional Family Medical History / Comment(s): Pt was raised in foster care. Maternal grandmother had esophageal cancer. General Exam Limitations: no limitations General appearance: alert, in no apparent distress Head exam: Present: atraumatic, normocephalic Eye exam: Present: normal appearance, PERRL ENT exam: Present: normal exam Neck exam: Present: normal inspection. Absent: tenderness, meningismus Respiratory exam: Present: normal lung sounds bilaterally. Absent: respiratory distress, wheezes Cardiovascular Exam: Present: regular rate. Absent: normal rhythm, bradycardia, tachycardia GI/Abdominal exam: Present: soft. Absent: distended, tenderness, guarding Extremities exam: Present: normal inspection, normal capillary refill. Absent: pedal edema Neurological exam: Present: alert, oriented X3, CN II-XII intact. Absent: motor sensory deficit Psychiatric exam: Present: normal affect, normal mood Skin exam: Present: warm, dry, intact. Absent: cyanosis, diaphoretic Course Vital Signs 04/10/21 04/10/21 16:27 18:02 Temperature 99 F Pulse Rate 91 70 Respiratory 18 20 Rate Blood Pressure 207/129 187/124 O2 Sat by Pulse 98 98 Oximetry EKG Findings - EKG Comments: EKG Findings:: EKG: Normal sinus rhythm, rate of 71, OH interval 1:30, QRS duration 82, QTC 467, no ST segment elevation. Medical Decision Making - Medical Decision Making 35-year-old female with elevated blood pressure. History of hypertension. Patient has initial blood pressure of 200/130. She is quite comfortable on exam, no acute distress, no focal neurologic findings, no chest pain. Patient has a normal laboratory testing. EKG is sinus rhythm. I did initiate IV antihypertensives in the emergency department. I spoke with Dr. Barajas who requests admission with both cardiology and nephrology on consult. - Lab Data Result diagrams: 04/10/21 17:23 04/10/21 17:23 Lab Results 04/10/21 04/10/21 04/10/21 Range/Units 17:23 17:23 17:23 WBC 9.9 (3.8-10.6) k/uL RBC 5.19 (3.80-5.40) m/uL Hgb 15.9 (11.4-16.0) gm/dL Hct 48.6 H (34.0-46.0) % MCV 93.5 (80.0-100.0) fL MCH 30.7 (25.0-35.0) pg MCHC 32.8 (31.0-37.0) g/dL RDW 12.5 (11.5-15.5) % Plt Count 299 (150-450) k/uL MPV 7.7 Neutrophils % 71 % Lymphocytes % 21 % Monocytes % 4 % Eosinophils % 3 % Basophils % 1 % Neutrophils # 7.0 (1.3-7.7) k/uL Lymphocytes # 2.1 (1.0-4.8) k/uL Monocytes # 0.4 (0-1.0) k/uL Eosinophils # 0.3 (0-0.7) k/uL Basophils # 0.1 (0-0.2) k/uL PT 9.7 (9.0-12.0) sec INR 0.9 (<1.2) APTT 24.8 (22.0-30.0) sec Sodium (137-145) mmol/L Potassium (3.5-5.1) mmol/L Chloride (98-107) mmol/L Carbon Dioxide (22-30) mmol/L Anion Gap mmol/L BUN (7-17) mg/dL Creatinine (0.52-1.04) mg/dL Est GFR (CKD-EPI)AfAm (>60 ml/min/1.73 sqM) Est GFR (CKD-EPI)NonAf (>60 ml/min/1.73 sqM) Glucose (74-99) mg/dL Plasma Lactic Acid [place] (0.7-2.0) mmol/L Calcium (8.4-10.2) mg/dL Magnesium (1.6-2.3) mg/dL Total Bilirubin (0.2-1.3) mg/dL AST (14-36) U/L ALT (4-34) U/L Alkaline Phosphatase (38-126) U/L Troponin I (0.000-0.034) ng/mL Total Protein (6.3-8.2) g/dL Albumin (3.5-5.0) g/dL Urine Color Light Yellow Urine Appearance Clear (Clear) Urine pH 6.5 (5.0-8.0) Ur Specific [place] 1.005 (1.001-1.035) Urine Protein Negative (Negative) Urine Glucose (UA) Negative (Negative) Urine Ketones Negative (Negative) Urine Blood Negative (Negative) Urine Nitrite Negative (Negative) Urine Bilirubin Negative (Negative) Urine Urobilinogen <2.0 (<2.0) mg/dL Ur Leukocyte Esterase Negative (Negative) 04/10/21 04/10/21 04/10/21 Range/Units 17:23 17:23 17:23 WBC (3.8-10.6) k/uL RBC (3.80-5.40) m/uL Hgb (11.4-16.0) gm/dL Hct (34.0-46.0) % MCV (80.0-100.0) fL MCH (25.0-35.0) pg MCHC (31.0-37.0) g/dL RDW (11.5-15.5) % Plt Count (150-450) k/uL MPV Neutrophils % % Lymphocytes % % Monocytes % % Eosinophils % % Basophils % % Neutrophils # (1.3-7.7) k/uL Lymphocytes # (1.0-4.8) k/uL Monocytes # (0-1.0) k/uL Eosinophils # (0-0.7) k/uL Basophils # (0-0.2) k/uL PT (9.0-12.0) sec INR (<1.2) APTT (22.0-30.0) sec Sodium 139 (137-145) mmol/L Potassium 4.2 (3.5-5.1) mmol/L Chloride 104 (98-107) mmol/L Carbon Dioxide 23 (22-30) mmol/L Anion Gap 12 mmol/L BUN 6 L (7-17) mg/dL Creatinine 0.63 (0.52-1.04) mg/dL Est GFR (CKD-EPI)AfAm >90 (>60 ml/min/1.73 sqM) Est GFR (CKD-EPI)NonAf >90 (>60 ml/min/1.73 sqM) Glucose 87 (74-99) mg/dL Plasma Lactic Acid [place] 0.9 (0.7-2.0) mmol/L Calcium 9.8 (8.4-10.2) mg/dL Magnesium 2.2 (1.6-2.3) mg/dL Total Bilirubin 0.5 (0.2-1.3) mg/dL AST 44 H (14-36) U/L ALT 43 H (4-34) U/L Alkaline Phosphatase 101 (38-126) U/L Troponin I <0.012 (0.000-0.034) ng/mL Total Protein 8.1 (6.3-8.2) g/dL Albumin 4.7 (3.5-5.0) g/dL Urine Color Urine Appearance (Clear) Urine pH (5.0-8.0) Ur Specific [place] (1.001-1.035) Urine Protein (Negative) Urine Glucose (UA) (Negative) Urine Ketones (Negative) Urine Blood (Negative) Urine Nitrite (Negative) Urine Bilirubin (Negative) Urine Urobilinogen (<2.0) mg/dL Ur Leukocyte Esterase (Negative) Disposition Clinical Impression: Hypertensive urgency Disposition: ADMITTED IP TO THIS [facility] Condition: Stable Is patient prescribed a controlled substance at d/c from ED?: No Referrals: Augustine Barajas MD [Primary Care Provider] - 1-2 days Decision to Admit Reason: Admit from EC Decision Date: 04/10/21 Decision Time: 19:05
[2021-04-10] MEDS ORDERED: NALOXONE 0.4 MG/ML 1 ML VIAL IV PRN (18:21)
[2021-04-10] MEDS ORDERED: hydrALAZINE HCL 20 MG/ML 1 ML VIAL IVP STA (18:21)
[2021-04-10] MEDS: SODIUM CHLORIDE 0.9% 1,000 ML IV SCH (18:37)
[2021-04-10] MEDS ORDERED: ALPRAZolam 0.25 MG TAB PO PRN (19:52)
--- NOTE | 2021-04-10 20:50 | XR ---
EXAMINATION TYPE: XR chest 2V DATE OF EXAM: 04/10/2021 COMPARISON: NONE HISTORY: Hypertension. TECHNIQUE: Frontal and lateral views of the chest are obtained. FINDINGS: There is no focal air space opacity, pleural effusion, or pneumothorax seen. The cardiac silhouette size is within normal limits. The osseous structures are intact. IMPRESSION: No acute cardiopulmonary process.
--- NOTE | 2021-04-10 21:03 | P.HPIM ---
History of Present Illness H&P Date: 04/10/21 (Hypertensive crisis) Chief Complaint: Uncontrolled hypertension, flattening of the right facial History and physical date of service 04/10/2021. Dictation by Dr. Karl Beach [facility]. Chief complaint: Patient requested to be seen acute care after she contacted her neurologist and he could not see her with her symptoms headache associated with elevated blood pressure and right facial drooping. History of present illness: 35 years old white female came to the office emergently because of her headache not feeling well and right facial drooping started 3 days ago prior to seen in the office she checked with her neurologist office and they could not accommodate her to be seen and at that time the advised her to go to the primary care patient at that time had acute numbness of the right side of the face. She indicating that her blood pressure was elevated at checked in the office was 200/120 and 180/120 also check in the hospital ER found is still 207/129 with a mean blood pressure 155 with the low-grade temperature 99 half. With the symptoms patient advised to go to the emergency room to be evaluated. And treated meanwhile we can consult as well the neurology service Dr. Butler as well as with the event of hypertensive crisis symptomatic consulting the cardiology as well as a nephrology with the resistant hypertension in spite of medication that she take at home. Medicines at home amlodipine 10 mg at bedtime, hydralazine 10 mg twice a day, metoprolol tartrate 25 mg twice a day, Lasix 40 mg in a.m., clonidine 0.1 mg twice a day, lisinopril 20 mg twice a day, citalopram 10 mg once a day, Lucia 180 mg once a day, taking to lean HFA 90 g per inhalation aerosol 2 puffs 4 times a day as needed she also had fluticasone nasal spray 50 g per inhalation spray and she has underlying vitamin D deficiency and she is taken vitamin D 2000 international units once a day, Colace 100 mg twice a day for constipation. Past medical history she has been seen by in the past with the neurosurgeon who did work on the brain tonsils at the [facility] to help her constant headache and hypertension which did help for multiple months then subsequently she is back to the normal status but the hypertension is accelerated with the hypertensive crisis. With associated with resistant hypertension not amenable with medication and the different families. Because of her symptoms and young age with the flattening of her face patient admitted through the emergency room with the resistant hypertensive crisis and urgency. Family history she is 3 daughter and 1 son. She live with her boyfriend Number smoked. She has a pets to cat. She drinks coffee twice a day. ALLERGY 3 kn, no routine, habits. Review of system: Neuropsychiatry: New symptoms of flattening of the right face with numbness associated with uncontrolled hypertension and headache. With association of blurry vision. She recently had MR and in this situation about 2 months ago however prior to these symptoms. She was planning to see her neurosurgeon and her neurologist was Dr. Torres with a history she had chiari malformation also seen by Dr Aixa Liu M.D at [facility] [place] on 02/29/2020 and at that time in February 01 patient had decompression and at that time she had as well aching numbness down to the left arm and aching in her neck. And she had also blurred vision at that time with a blood pressure ranging 144/96. Cardiovascular: She had intermittent palpitation Respiratory no shortness of breath GI she has some epigastric discomfort. No diarrhea or constipation at this time Genitourinary no complaint no incontinent able to control her bladder and bowel Extremities ambulatory and able to walk with normal gait. Neurologically: Presented with a right facial and the left angle of the mouth is deviated as pulled to the left. No apparent weakness on the left or the right consideration of Belz pulsating or TIA considered need for further neurological evaluation. Assessment and plan #1 patient to be admitted to the hospital through the emergency room #2 consultation with the cardiology and nephrology to help before the hypertensive crisis with the hypertensive heart. Consultation with the neurology for evaluation of these right facial numbness and an flattening. Continue current medication which is ordered already added the beta rosendo and vasodilator, patient on NAYE inhibitor and on central medication as clonidine and still resistant hypertension.. Evaluation of the laboratories: WBC 9.9, hemoglobin 15.9, with mild elevation of the hematocrit 48.6, PTT, INR and PTT within normal limit, electrolyte within normal limit with the BUN of 6 and creatinine 0.63, blood glucose normal no evidence of diabetes and, plasma lactic acid was normal with the EGFR more than 90 Her AST 44 a LT 43 which is the only found abnormalities and urine analysis is clear. Plan we'll continue neuro check every 4 hour and consultation as mentioned with the neurology as well as the cardiology as well his the nephrology with these evidence of crisis with the resistant hypertension and hypertensive urgency. We'll check the chest x-ray to rule out cardiomegaly or any other pathology participate in the hypertensive crisis. . . . . . . . . . . . . . . . . . . . . . . . . . . . . . . . . . . . . . . . . . . . . . . . . . . . . . . . . . . . . . . . . . . . . . . . . . . . . . . . . . . . . . . . . . . . . . . . . . . . . . . . . . . . . . . . . . . . . . . . . . . . . . . . . . . . . . . . . . . . . . . . . . . . . . . . . . . . . . . . . . . . . . . . . . . . . . . . . . . . . . . . . . . . . . . . . . . . . . . . . . . . . . . . . . . . . . . . . . . . . . . . . . . . . . . . . . . . . . . . . . . . . . . . . . . . . . . . . . . . . . . . . . . . . . . . . . . . . . . . . . . . . . . . . . . . . . . . . . . . . . . . . . . . . . . . . . . . . . . . . . . . . . . . . . . . . . . . . . . . . . . . . . . . . . . . . . . . . . . . . . . . . . . . . . . . . . . . . . . . . . . . . . +++++++++++++++++ . Past Medical History Past Medical History: Fibromyalgia, GERD/Reflux, Hypertension, Thyroid Disorder Additional Past Medical History / Comment(s): Chiari malformation. Migrane headaches, iron deficiency anemia, chronic constipation, QAWALANGIN R ear (had ear infections). PAST HEAD OF MUSIC HISTORY: She has no history of STDs. Menorrhagia improved with endometrial ablation. History of Any Multi-Drug Resistant Organisms: None Reported Past Surgical History: Breast Surgery, Section, Tubal Ligation, Uterine Ablation Additional Past Surgical History / Comment(s): Diagnostic lap exam with excision of L paratubal cyst, R breast benign lump, surgery for left ectopic . Endometrial ablation 05/12/2018. Past Anesthesia/Blood Transfusion Reactions: No Reported Reaction, Motion Sickness Past Psychological History: Anxiety Smoking Status: Never smoker Past Alcohol Use History: None Reported Past Drug Use History: None Reported - Past Family History Father History Unknown: Yes Family Medical History: Unable to Obtain Additional Family Medical History / Comment(s): Pt was raised in foster care. Mother History Unknown: Yes Family Medical History: Unable to Obtain Additional Family Medical History / Comment(s): Pt was raised in foster care. Maternal grandmother had esophageal cancer. Medications and Allergies Home Medications Medication Instructions Recorded Confirmed Type Pregabalin [Lyrica] 150 mg PO TID 05/31/15 05/12/19 History ALPRAZolam [Xanax] 0.25 mg PO BID PRN 11/14/16 05/12/19 History Verapamil [Isoptin] 40 mg PO Q12H 02/09/19 05/12/19 History Cholecalciferol [Vitamin D3 (25 1,000 unit PO DAILY 05/12/19 05/12/19 History Mcg = 1000 Iu)] Ibuprofen [Motrin] 800 mg PO DAILY 05/12/19 05/12/19 History Iron 18 mg PO BID 05/12/19 05/12/19 History Levothyroxine Sodium 25 mcg PO DAILY 05/12/19 05/12/19 History Magnesium 200 mg PO DAILY 05/12/19 05/12/19 History lisinopriL 20 mg PO BID 05/12/19 05/12/19 History Allergies Allergy/AdvReac Type Severity Reaction Status Date / Time amoxicillin [Amoxicillin] Allergy RACING Verified 04/10/21 16:32 HEART latex Allergy Rash/Hives Verified 04/10/21 16:32 Penicillins Allergy RACING Verified 04/10/21 16:32 HEART shellfish derived [Shellfish] Allergy Anaphylaxis Verified 04/10/21 16:32 tree nut Allergy Anaphylaxis Verified 04/10/21 16:32 Physical Exam Vitals: Vital Signs Temp Pulse Resp BP Pulse Ox 04/10/21 20:15 89 20 179/121 98 04/10/21 18:02 70 20 187/124 98 04/10/21 16:27 99 F 91 18 207/129 98 Intake and Output 04/10/21 04/10/21 04/10/21 06:59 14:59 22:59 Other: Weight 68.039 kg Results CBC & Chem 7: 04/10/21 17:23 04/10/21 17:23 Labs: Abnormal Lab Results - Last 24 Hours (Table) 04/10/21 04/10/21 Range/Units 17:23 17:23 Hct 48.6 H (34.0-46.0) % BUN 6 L (7-17) mg/dL AST 44 H (14-36) U/L ALT 43 H (4-34) U/L
[2021-04-10] MEDS: hydrALAZINE HCL 50 MG TAB PO SCH (21:33)
[2021-04-10] MEDS: lisinopriL 20 MG TAB PO SCH (21:33)
[2021-04-10] MEDS: MAGNESIUM OXIDE 400 MG TAB PO SCH (21:33)
[2021-04-11] MEDS: METOPROLOL TARTRATE 50 MG TAB PO SCH ×3 (00:08→18:37)
[2021-04-11] MEDS: ACETAMINOPHEN TAB 325 MG TAB PO PRN ×2 (05:31→13:09)
[2021-04-11] MEDS: LEVOTHYROXINE 25 MCG TAB PO SCH ×2 (06:44→09:45)
[2021-04-11] MEDS: CHOLECALCIFEROL 25 MCG (1000 IU) TABLET PO SCH (09:44)
[2021-04-11] MEDS: hydrALAZINE HCL 50 MG TAB PO SCH ×2 (09:45→18:36)
[2021-04-11] MEDS: lisinopriL 20 MG TAB PO SCH ×2 (09:45→21:06)
[2021-04-11] MEDS: amLODIPine 10 MG TAB PO SCH (09:45)
[2021-04-11] MEDS: MAGNESIUM OXIDE 400 MG TAB PO SCH (09:46)
[2021-04-11] MEDS: SODIUM CHLORIDE 0.9% 1,000 ML IV SCH (09:51)
--- NOTE | 2021-04-11 10:25 | P.CRDCN ---
History of Present Illness History of present illness: . HISTORY OF PRESENTING ILLNESS This is a pleasant 35-year-old female past medical history significant for hypertension, chiari malformation and fibromyalgia. She does not follow in the office with a improvement lead. We have been asked to see in consultation for hypertension. She states she was first diagnosed with hypertension at the age of 18 when she was . Since that time she has struggled over the years with uncontrolled blood pressures. According to the patient her blood pressure is stable when she is sitting down not doing anything but if she gets up to do any activity such as walking to the bathroom her blood pressure increases significantly. Over the last 3 weeks she has been experiencing numbness to the right side of face. She also feels like her right eye is heavy and full. On arrival her blood pressure was 207/129 and 187/124. She was given her usual p rescribed medications and her blood pressure came down this morning to 137/97. She denies chest pain, shortness of breath, dizziness or palpitations. DIAGNOSTICS EKG reveals sinus rhythm with no acute ST or T wave abnormalities noted. Chest xray negative for an acute cardiopulmonary process. Laboratory reviewed, CBC unremarkable, sodium 139, potassium 4.2, creatinine 0.63, magnesium 2.2, cardiac enzymes negative 1, TSH 3.62. Current cardiac medications include clonidine 0.1 mg at bedtime, Lopressor 50 mg 3 times a day, hydralazine 50 mg 3 times a day, lisinopril 20 mg twice a day and aspirin 81 mg daily. REVIEW OF SYSTEMS At the time of my exam: CONSTITUTIONAL: Denies fever or chills. CARDIOVASCULAR: Denies chest pain, shortness of breath, orthopnea, PND or palpitations. RESPIRATORY: Denies cough. GASTROINTESTINAL: Denies abdominal pain, diarrhea, constipation, nausea or vomiting. MUSCULOSKELETAL: Denies myalgias. NEUROLOGIC: Complains of right facial numbness. Denies tingling, headache or weakness. ENDOCRINE: Denies fatigue, weight change, polydipsia or polyurina. GENITOURINARY: Denies burning, hematuria or urgency with micturation. HEMATOLOGIC: Denies history of anemia or bleeding. PHYSICAL EXAMINATION CONSTITUTIONAL: No apparent distress. HEENT: Head is normocephalic. Pupils are equal, round. Sclerae anicteric. Mucous membranes of the mouth are moist. No JVD. No carotid bruit. CHEST EXAMINATION: Lungs are clear to auscultation. No chest wall tenderness is noted on palpation or with deep breathing. HEART EXAMINATION: Regular rate and rhythm. S1, S2 heard. No murmurs, gallops or rub. ABDOMEN: Soft, nontender. EXTREMITIES: 2+ peripheral pulses, no lower extremity edema and no calf tenderness. NEUROLOGIC EXAMINATION: Patient is awake, alert and oriented x3. ASSESSMENT Hypertension, uncontrolled PLAN Obtain 2D echocardiogram and doppler study to assess cardiac structure and function. Hydrochlorothiazide was added per nephrology and norvasc per pcp. Agree with these additions. Thank you kindly for this consultation. Nurse Practitioner note has been reviewed, I agree with a documented findings and plan of care. Patient was seen and examined. Past Medical History Past Medical History: Fibromyalgia, GERD/Reflux, Hypertension, Thyroid Disorder Additional Past Medical History / Comment(s): Chiari malformation. Migrane headaches, iron deficiency anemia, chronic constipation, SEMINOLE R ear (had ear infections). 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 Menorrhagia improved with endometrial ablation. History of Any Multi-Drug Resistant Organisms: None Reported Past Surgical History: Breast Surgery, Section, Tubal Ligation, Uterine Ablation Additional Past Surgical History / Comment(s): Diagnostic lap exam with excision of L paratubal cyst, R breast benign lump, surgery for left ectopic . Endometrial ablation 05/12/2018. Past Anesthesia/Blood Transfusion Reactions: No Reported Reaction, Motion Sickness Past Psychological History: Anxiety Smoking Status: Never smoker Past Alcohol Use History: None Reported Past Drug Use History: None Reported - Past Family History Father History Unknown: Yes Family Medical History: Unable to Obtain Additional Family Medical History / Comment(s): Pt was raised in foster care. Mother History Unknown: Yes Family Medical History: Unable to Obtain Additional Family Medical History / Comment(s): Pt was raised in foster care. M atebinhl grandmother had esophageal cancer. Medications and Allergies Home Medications Medication Instructions Recorded Confirmed Type lisinopriL 20 mg PO BID 05/12/19 04/10/21 History Aspirin EC [Ecotrin Low Dose] 81 mg PO DIRECTED 04/10/21 04/10/21 History Citalopram Hydrobromide 10 mg PO DAILY 04/10/21 04/10/21 History [Citalopram HBr] EPINEPHrine 0.15 mg IM ONCE PRN 04/10/21 04/10/21 History Metoprolol Tartrate [Lopressor] 50 mg PO DIRECTED 04/10/21 04/10/21 History cloNIDine HCL [Catapres] 0.1 mg PO HS 04/10/21 04/10/21 History hydrALAZINE HCL [Apresoline] 50 mg PO DIRECTED 04/10/21 04/10/21 History methocarbamoL [Methocarbamol] 750 mg PO TID 04/10/21 04/10/21 History Allergies Allergy/AdvReac Type Severity Reaction Status Date / Time amoxicillin [Amoxicillin] Allergy RACING Verified 04/10/21 21:50 HEART latex Allergy Rash/Hives Verified 04/10/21 21:50 Penicillins Allergy RACING Verified 04/10/21 21:50 HEART shellfish derived [Shellfish] Allergy Anaphylaxis Verified 04/10/21 21:50 tree nut Allergy Anaphylaxis Verified 04/10/21 21:50 Physical Exam Vitals: Vital Signs Temp Pulse Resp BP Pulse Ox 04/11/21 07:18 97.8 F 71 18 137/97 99 04/11/21 06:00 97.8 F 82 18 149/114 99 04/11/21 04:35 64 18 132/91 98 04/11/21 02:46 98.1 F 79 18 158/116 96 04/11/21 01:30 18 04/11/21 00:10 84 20 135/96 98 04/10/21 20:15 89 20 179/121 98 04/10/21 18:02 70 20 187/124 98 04/10/21 16:27 99 F 91 18 207/129 98 Intake and Output 04/10/21 04/11/21 04/11/21 22:59 06:59 14:59 Other: Weight 68.039 kg Results 04/10/21 17:23 04/10/21 17:23 Cardiac Enzymes 04/10/21 04/10/21 Range/Units 17:23 17:23 AST 44 H (14-36) U/L Troponin I <0.012 (0.000-0.034) ng/mL Coagulation 04/10/21 Range/Units 17:23 PT 9.7 (9.0-12.0) sec APTT 24.8 (22.0-30.0) sec CBC 04/10/21 Range/Units 17:23 WBC 9.9 (3.8-10.6) k/uL RBC 5.19 (3.80-5.40) m/uL Hgb 15.9 (11.4-16.0) gm/dL Hct 48.6 H (34.0-46.0) % Plt Count 299 (150-450) k/uL Comprehensive Metabolic Panel 04/10/21 Range/Units 17:23 Sodium 139 (137-145) mmol/L Potassium 4.2 (3.5-5.1) mmol/L Chloride 104 (98-107) mmol/L Carbon Dioxide 23 (22-30) mmol/L BUN 6 L (7-17) mg/dL Creatinine 0.63 (0.52-1.04) mg/dL Glucose 87 (74-99) mg/dL Calcium 9.8 (8.4-10.2) mg/dL AST 44 H (14-36) U/L ALT 43 H (4-34) U/L Alkaline Phosphatase 101 (38-126) U/L Total Protein 8.1 (6.3-8.2) g/dL Albumin 4.7 (3.5-5.0) g/dL Current Medications Generic Name Dose Route Start Last Admin Trade Name Freq PRN Reason Stop Dose Admin Acetaminophen 650 mg 04/10/21 18:21 04/11/21 05:31 Acetaminophen Tab 325 Mg Tab PO 650 mg Q6HR PRN Administration Mild Pain or Fever > 100.5 Alprazolam 0.25 mg 04/10/21 19:52 Alprazolam 0.25 Mg Tab PO BID PRN Anxiety Amlodipine Besylate 10 mg 04/11/21 09:00 Amlodipine 10 Mg Tab PO DAILY ALKA Cholecalciferol 25 mcg 04/11/21 09:00 Cholecalciferol 25 Mcg (1000 Iu) Tablet PO DAILY ALKA Hydralazine HCl 50 mg 04/10/21 23:00 04/10/21 21:33 Hydralazine Hcl 50 Mg Tab PO 50 mg TID ALKA Administration Sodium Chloride 1,000 mls @ 20 mls/hr 04/10/21 18:30 04/10/21 18:37 Saline 0.9% IV 75 mls/hr .Q24H ALKA Administration Levothyroxine Sodium 25 mcg 04/11/21 06:30 04/11/21 06:44 Levothyroxine 25 Mcg Tab PO 25 mcg DAILY@0630 ALKA Administration Lisinopril 20 mg 04/10/21 21:00 04/10/21 21:33 Lisinopril 20 Mg Tab PO 20 mg BID ALKA Administration Magnesium Oxide 200 mg 04/10/21 20:00 04/10/21 21:33 Magnesium Oxide 400 Mg Tab PO 200 mg DAILY ALKA Administration Metoprolol Tartrate 50 mg 04/10/21 22:00 04/11/21 00:08 Metoprolol Tartrate 50 Mg Tab PO 50 mg TID ALKA Administration Naloxone HCl 0.2 mg 04/10/21 18:21 Naloxone 0.4 Mg/Ml 1 Ml Vial IV Q2M PRN Opioid Reversal Intake and Output 04/10/21 04/11/21 04/11/21 22:59 06:59 14:59 Other: Weight 68.039 kg 04/10/21 17:23 04/10/21 17:23
--- NOTE | 2021-04-11 11:37 | CT ---
EXAMINATION TYPE: CT angio renal artery DATE OF EXAM: 04/11/2021 HISTORY: Renal artery stenosis; hypertensive urgency. CT DLP: 546.1mGycm Automated Exposure Control for Dose Reduction was Utilized. CONTRAST: CTA scan of the abdomen is performed without oral but without and with IV Contrast, patient injected with 100 mL of Isovue 370. COMPARISON: Renal ultrasound earlier today and renal artery duplex study April 28, 2019 FINDINGS: VASCULAR:Satisfactory enhancement of the aorta without significant plaque or stenosis. Patent celiac artery and SMA without significant plaque or stenosis. There are patent single bilateral renal arteri es without significant plaque or stenosis. Patent LESTER. Patent iliac vessels without significant plaqu e or stenosis. No AAA. No aortic dissection. LUNG BASES: No significant abnormality is appreciated. LIVER/GB: Visualized liver is mildly enlarged and markedly heterogeneously hypodense suggesting diffu se fatty infiltration. PANCREAS: No significant abnormality is seen. SPLEEN: No significant abnormality is seen. ADRENALS: No significant abnormality is seen. KIDNEYS: There is 2 to 3 mm nonobstructing calculus lower pole right kidney coronal image 46. There i s 2 mm nonobstructing calculus upper pole left kidney coronal image 56. BOWEL: Normal appendix from cecum. LYMPH NODES: No greater than 1cm abdominal lymph nodes are appreciated. Few prominent but subcentimet er lymph nodes in the retroperitoneum are present. OSSEOUS STRUCTURES: No significant abnormality is seen. OTHER: Tubal ligation clips in the pelvis seen on localizer. IMPRESSION: 1. No renal artery stenosis identified.
--- NOTE | 2021-04-11 11:40 | US ---
EXAMINATION TYPE: US kidneys/renal and bladder DATE OF EXAM: 04/11/2021 COMPARISON: US dated 04/28/2019 CLINICAL HISTORY: htn. EXAM MEASUREMENTS: Right Kidney: 10.5 x 3.6 x 4.7 cm Left Kidney: 11.2 x 4.1 x 5.2 cm Right Kidney: No hydronephrosis, nephrolithiasis or masses seen Left Kidney: No hydronephrosis, nephrolithiasis or masses seen Bladder: wnl Bilateral Jets seen: No There is no evidence for hydronephrosis at this point in time. No nephrolithiasis is seen. No elbert s are identified. The urinary bladder is anechoic. IMPRESSION: No acute process.
--- NOTE | 2021-04-11 12:47 | US ---
EXAMINATION TYPE: US carotid duplex BILAT DATE OF EXAM: 04/11/2021 COMPARISON: NONE CLINICAL HISTORY: Right facial numbness, ?TIA, chronic HTN. EXAM MEASUREMENTS: RIGHT: Peak Systolic Velocity (PSV) cm/sec ----- Right CCA: 71.8 ----- Right ICA: 102 ----- Right ECA: 66.9 ICA/CCA ratio: 1.4 RIGHT: End Diastole cm/sec ----- Right CCA: 33.9 ----- Right ICA: 64.8 ----- Right ECA: 18.6 LEFT: Peak Systolic Velocity (PSV) cm/sec ----- Left CCA: 76.8 ----- Left ICA: 124 ----- Left ECA: 84.0 ICA/CCA ratio: 1.6 LEFT: End Diastole cm/sec ----- Left CCA: 33.9 ----- Left ICA: 60.9 ----- Left ECA: 21.9 VERTEBRALS (direction of flow): Right Vertebral: Antegrade Left Vertebral: Antegrade Rhythm: Normal Bilat tortuous distal ICA IMPRESSION: 1. No significant hemodynamic stenosis as visualized. 2. Tortuous internal carotid arteries. Criteria for Assigning % of Stenosis / Diameter reduction (Estimation based on the indirect measurements of the internal carotid artery velocities (ICA PSV). 1. Normal (no stenosis)=ICA PSV < 125 cm/s: ratio < 2.0: ICA EDV<40 cm/s. 2. Less than 50% stenosis=ICA PSV < 125 cm/s: ratio < 2.0: ICA EDV<40 cm/s. 3. 50 to 69% stenosis=ICA PSV of 125 to 230 cm/s: ration 2.0 ? 4.0: ICA EDV 40-100 cm/s. 4. Greater than 70% stenosis to near occlusion= ICA PSV > 230 cm/s: ratio > 4.0: ICA EDV > 100 cm/s. 5. Near occlusion= ICA PSV velocities may be low or undetectable: variable ratio and ICA EDV. 6. Total occlusion=unable to detect flow.
[2021-04-11] MEDS: ASPIRIN 81 MG PO SCH (13:10)
[2021-04-11] MEDS: hydroCHLOROthiazide 25 MG TAB PO SCH (13:21)
--- NOTE | 2021-04-11 13:39 | P.CNNES ---
History of Present Illness Consult date: 04/11/21 Requesting physician: Augustine Barajas Reason for Consult: Right facial drooping with possible TIA, hypertensive crisis History of Present Illness: Patient is a 35-year-old female with history of hypertension came to the [facility] yesterday at 3:43 PM because of accelerated, uncontrolled blood pressure. Neurology was consulted for right facial numbness. Patient states that she has history of hypertension for the last 16-17 years, which is not coming under control. She has been seeing Dr. Barajas for the last 2 years and the dose of medications have to be continuously increased. Patient states that if she is resting in the bed, the blood pressure is controlled. However with any activity, the blood pressure jumps up 30 points and goes up to 170/120. The longer she walks, the worse it gets. And she starts noticing numbness in the legs, flashing lights, dizziness, weakness in the legs and has to sit down. Alecia osman states that for the last 1-1/2 weeks she has been noticing tightness/numbness in the right facial region. She feels like there is stuff around her right eye. She felt that she couldn't move her right side of the face for the last few days. Patient states that she had MRI of the brain performed recently at [facility] in [place]. We will try to obtain the MRI report. Patient does not take any antiplatelet medication at home. Patient states that she does see an eye doctor once a year and has not seen an eye doctor for over a year. Patient also has history of Chiari malformation for which she had undergone surgery in January 2020. Patient's vitals on arrival blood pressure 207/129, pulse rate 91, temperature 99.0. EKG shows normal sinus rhythm. Chest x-ray showed no acute cardiopulmonary process. Blood tests shows normal CBC, PT/PTT, Chem-7. AST is mildly elevated 44, ALT 43. Troponin is negative. TSH is normal 3.62. UA negative. Coronavirus PCR negative. Urine hCG negative. Patient denies any tobacco or alcohol use. Denies diabetes or cholesterol issues. Review of Systems As above in detail. Denies any focal weakness. No double vision. No slurred speech, facial droop. No numbness or tingling of the extremities. No balance issues. Patient gets dizzy with walking. No fever or chills. No chest pain, no abdominal pain nausea vomiting diarrhea. No loss of control of urine. No dysuria. Past Medical History Past Medical History: Fibromyalgia, GERD/Reflux, Hypertension, Thyroid Disorder Additional Past Medical History / Comment(s): Chiari malformation. Migrane headaches, iron deficiency anemia, chronic constipation, HYDABURG R ear (had ear infections). 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 Menorrhagia improved with endometrial ablation. History of Any Multi-Drug Resistant Organisms: None Reported Past Surgical History: Breast Surgery, Section, Tubal Ligation, Uterine Ablation Additional Past Surgical History / Comment(s): Diagnostic lap exam with excision of L paratubal cyst, R breast benign lump, surgery for left ectopic . Endometrial ablation 05/12/2018. Past Anesthesia/Blood Transfusion Reactions: No Reported Reaction, Motion Sickness Past Psychological History: Anxiety Smoking Status: Never smoker Past Alcohol Use History: None Reported Past Drug Use History: None Reported - Past Family History Father History Unknown: Yes Family Medical History: Unable to Obtain Additional Family Medical History / Comment(s): Pt was raised in foster care. Mother History Unknown: Yes Family Medical History: Unable to Obtain Additional Family Medical History / Comment(s): Pt was raised in foster care. Maternal grandmother had esophageal cancer. Medications and Allergies Home Medications Medication Instructions Recorded Confirmed Type lisinopriL 20 mg PO BID 05/12/19 04/10/21 History Aspirin EC [Ecotrin Low Dose] 81 mg PO DIRECTED 04/10/21 04/10/21 History Citalopram Hydrobromide 10 mg PO DAILY 04/10/21 04/10/21 History [Citalopram HBr] EPINEPHrine 0.15 mg IM ONCE PRN 04/10/21 04/10/21 History Metoprolol Tartrate [Lopressor] 50 mg PO DIRECTED 04/10/21 04/10/21 History cloNIDine HCL [Catapres] 0.1 mg PO HS 04/10/21 04/10/21 History hydrALAZINE HCL [Apresoline] 50 mg PO DIRECTED 04/10/21 04/10/21 History methocarbamoL [Methocarbamol] 750 mg PO TID 04/10/21 04/10/21 History Allergies Allergy/AdvReac Type Severity Reaction Status Date / Time amoxicillin [Amoxicillin] Allergy RACING Verified 04/10/21 21:50 HEART latex Allergy Rash/Hives Verified 04/10/21 21:50 Penicillins Allergy RACING Verified 04/10/21 21:50 HEART shellfish derived [Shellfish] Allergy Anaphylaxis Verified 04/10/21 21:50 tree nut Allergy Anaphylaxis Verified 04/10/21 21:50 Physical Examination - Vital Signs Vital Signs: Vital Signs Temp Pulse Resp BP BP Pulse Ox 04/11/21 09:33 97.3 F L 76 14 146/101 97 04/11/21 09:16 14 146/101 97 04/11/21 07:18 97.8 F 71 18 137/97 99 04/11/21 06:00 97.8 F 82 18 149/114 99 04/11/21 04:35 64 18 132/91 98 04/11/21 02:46 98.1 F 79 18 158/116 96 04/11/21 01:30 18 04/11/21 00:10 84 20 135/96 98 04/10/21 20:15 89 20 179/121 98 04/10/21 18:02 70 20 187/124 98 04/10/21 16:27 99 F 91 18 207/129 98 Intake and Output 04/10/21 04/11/21 04/11/21 22:59 06:59 14:59 Intake Total 600 Balance 600 Intake: Oral 600 Other: Voiding Method Toilet # Voids 1 Weight 68.039 kg 68.039 kg Patient is a young female, very pleasant, in no acute distress. Patient is alert awake oriented to time place and person. Speech and language functions are normal. Attention, concentration and fund of knowledge is adequate. On cranial examination, pupils are round and reacting to light, visual peterson are full on confrontation, extraocular muscles are intact with no nystagmus. Face is symmetric, tongue protrudes to the midline. Palatal elevation and sensation normal, hearing and shoulder shrug normal. Facial sensations was slightly decreased for fine touch on the right side. Temperature sensation was equal on the face. On muscle strength testing, there is no pronator drift and the strength is normal in arms and legs distally and proximally. Deep tendon reflexes are symmetric, 1 in the upper extremities and lower extremities and plantars downgoing. Sensory to touch revealed slightly less temperature sensation in the left arm as compared to the right. Cerebellar function showed mild dysmetria for [id number] testing bilaterally. No dysdiadochokinesia. Tone and bulk of muscles normal. Gait normal. On general examination, there is no carotid bruit or murmur, S1-S2 audible. Abdomen is soft nontender. Chest is clear. Peripheral pulses are present. No edema. Results - Laboratory Findings CBC and BMP: 04/10/21 17:23 04/10/21 17:23 Abnormal Lab Findings: Abnormal Labs 04/10/21 04/10/21 17:23 17:23 Hct 48.6 H BUN 6 L AST 44 H ALT 43 H Assessment and Plan Assessment: * Accelerated hypertension * Right facial paresthesias, rule out cerebral ischemia. Rule out carotid stenosis. * History of Chiari malformation surgery in January 2020. Plan: * Patient will undergo computed tomography scan of the head, rule out any ische amanda. * Carotid Doppler was performed, which revealed no significant stenosis. Tortuous internal carotid arteries. * 2-D echo to rule out embolic source. * Agree with starting aspirin 81 mg daily indefinitely. * Fasting lipid panel, hemoglobin A1c. * We will obtain MRI of the brain that was performed at outside facility on 03/30/2021. * CT angiogram of the renal artery was negative for any stenosis. * Telemetric monitoring. * Nephrology following for uncontrolled blood pressure. * Neurology will follow. Thank you for the consult.
--- NOTE | 2021-04-11 14:47 | CT ---
EXAMINATION TYPE: CT brain wo con DATE OF EXAM: 04/11/2021 COMPARISON: CT brain July 17, 2018 HISTORY: Right facial numbness, rule out CVA CT DLP: 982 mGycm. Automated Exposure Control for Dose Reduction was Utilized. TECHNIQUE: CT scan of the head is performed without contrast. FINDINGS: There is no acute intracranial hemorrhage, mass effect, or midline shift identified. Cont rast from recent CTA renal arteries is filling the internal carotid [place] vessels The vent ricles and sulci are within normal limits in size. Fournier-white matter differentiation is maintained. The globes are intact and the visualized sinuses are clear. IMPRESSION: No acute intracranial hemorrhage or midline shift is seen. No significant change from pr ior.
--- NOTE | 2021-04-11 15:40 | CONS ---
CONSULTATION REASON FOR CONSULT: Uncontrolled hypertension. HISTORY OF PRESENT ILLNESS: Patient is a 35-year-old female who was admitted to the hospital yesterday evening with complaints of headache and right facial numbness and drooping. Patient's blood pressure was as high as 207/129. She states that her blood pressure has been uncontrolled and she has had a history of hypertension for the last 16 to 17 years. Apparently the medications have been adjusted recently, but blood pressure remains uncontrolled and has progressively been harder to control according to the patient. She denies any episodes of palpitations, excessive sweating of the palms. She denies excessive use of NSAIDs. There is no history of drug abuse. No episodes of syncope. Currently patient was on Lopressor, hydralazine, lisinopril, and clonidine prior to admission. Her blood pressure is now about 131/90 and 147/103, on initial admission the patient's blood pressure was 207/129. She also states that she has had swelling in her lower extremities on and off. She uses Lasix. The patient denies excessive use of high salt containing foods. 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 PAST SURGICAL HISTORY: , tubal ligation, uterine ablation for menorrhagia, history of left ectopic . SOCIAL HISTORY: Negative for smoking, drug abuse or alcohol abuse. MEDICATIONS: Medications prior to admission included Lyrica, Xanax, Isoptin, vitamin D3, Motrin, iron, Synthroid, magnesium, lisinopril. ALLERGIES: Amoxicillin, latex, penicillin, shellfish, tree nut. REVIEW OF SYSTEMS: As per HPI. Other systems negative. EXAMINATION: Currently comfortable, awake, not in any acute distress. Blood pressure 131/90, heart rate 73 per minute, she is afebrile. Examination of the heart S1, S2. Examination of the lungs, bilateral breath sounds are heard. Abdomen is soft, nontender. Examination lower extremities shows no evidence of edema. 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 The patient has just been evaluated by Neurology as well. LABS: Sodium of 139, potassium 4.2, chloride 104, BUN 6, serum creatinine 0.63, hemoglobin 15.9 g/dL. UA is completely negative. test is negative. TSH 3.6. ASSESSMENT: 1. Hypertensive emergency with significantly uncontrolled hypertension. Rule out secondary causes including renal artery stenosis and fibromuscular dysplasia in a young female. The patient's blood pressure is better controlled. I will add a thiazide diuretics to her current regimen. Workup for secondary causes including aldosterone renal and 24 hour urine for catecholamines will be sent out along with plasma free metanephrines. No obvious hypokalemia noted on her current labs. 2. Right facial paresthesias, possible TIA. Initial CT of the brain is negative, being followed by Neurology. 3. 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 4. Gastroesophageal reflux disease. 5. Hypothyroidism. TSH within range. PLAN: Check aldosterone level, renal levels, plasma free metanephrines. Check renal CT angiogram to rule out renal artery stenosis. Add thiazide diuretics to current regimen. Avoid dropping the blood pressure too much, goal blood pressure right now should be around 140/85-90 and then subsequently further down over the next 24 hours. Thank you for this consultation. Will continue to follow the patient with you during her hospitalization. MMODL / IJN: [id number] /
[2021-04-11] MEDS ORDERED: hydrALAZINE HCL 50 MG TAB PO SCH (16:00)
--- NOTE | 2021-04-11 16:56 | P.PN ---
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 Progress note date of service 04/11/[address] Karl Beach [facility]. Patient seen and evaluated discussed with her the current blood pressure with the improvement. Patient stated that when she is ambulatory and ambulate her blood pressure goes back to about 200 systolic as well as a diastolic was elevated on presentation in the ER as well as during her floor measurement. Complain of headache and we advised nursing staff to check with Dr. Butler the neurology for the best medication to be used in this case. Her vital sign at the time of the visit indicating: Temperature 98.4 F oral pulse rate 79-73 bpm and regular sinus and respiratory rate 17. Her blood pressure 142/102 improved however still elevated with also diastolic elevation. Her oxygen saturation 99% on room air. Patient is not complaining of blurred vision but complaining of headache. On the exam head was normocephalic and atraumatic. Pupil was equal reactive. Oropharynx normal at this time in the distribution of the weakness of the right facial. Neck was supple no JVD no thyromegaly no lymphadenopathy trachea midline the carotid duplex study also was negative for any hemodynamic significant stenosis. The chest is clear to auscultation percussion no wheezes no rhonchi's. The heart is regular sinus rhythm and the blood pressure as mentioned is improved with multiple antihypertensive medication. And we will be trying to recheck the blood pressure after ambulation and also check orthostatic blood pressure as well. Patient had echocardiogram result is pending. She seen by cardiology Dr. Nation. And his PA no impression yet until we have the echo cardiogram. The abdomen soft positive bowel sounds had history of GERD disease and will check if she is started on PPI and will continue with the pantoprazole 40 mg before meals breakfast. Extremities no edema and positive pulses. Assessment and discussion Discussed with the patient her consulting physician, Dr. Barger currently collecting 24-hour urine for for further investigation for secondary hypertension. Dr. Barger added the hydrochlorothiazide 25 mg once a day as well and she obtaining laboratory [id number] on as well as 24-hour urine catecholamine and plasma metanephrine at the same time as well as ruling out the fibromuscular dysplasia for young ages of female. Dr. Butler neurologist he did the CAT scan which was negative and also carotid duplex study which was negative with a tortuous internal carotid. And to ruling out TIA as well. Cardiology Dr. Nation order to the echocardiogram to disease with Doppler and the result is not available yet. Plan: We'll ambulate the patient in the hallway and recheck her blood pressure after ambulation in the Coumadin mentation I did speak with the her RN nurse Pb. Also check on orthostatic hypotension as well. We will continue the 3 metanephrine plasma as well the angiogram did not indicate renal artery stenosis was negative as well. However presence of small 2 mm stone in the right and left kidney and that would not do that elevation of blood pressure and acceleration as well crisis. We'll wait for for further results and further treatment. And monitoring blood pressure to continue. Objective - Vital Signs Vital signs: Vital Signs Temp 98.4 F 04/11/21 15:00 Pulse 79 04/11/21 15:00 Resp 17 04/11/21 15:00 BP 142/102 04/11/21 15:00 Pulse Ox 99 04/11/21 15:00 Intake & Output 04/10/21 04/11/21 04/11/21 18:59 06:59 18:59 Intake Total 600 Balance 600 Weight 68.039 kg 68.039 kg Intake: Oral 600 Other: Voiding Method Toilet # Voids 1 1 - Labs CBC & Chem 7: 04/10/21 17:23 04/10/21 17:23 Labs: Abnormal Lab Results - Last 24 Hours (Table) 04/10/21 04/10/21 Range/Units 17:23 17:23 Hct 48.6 H (34.0-46.0) % BUN 6 L (7-17) mg/dL AST 44 H (14-36) U/L ALT 43 H (4-34) U/L
[2021-04-11] MEDS: PANTOPRAZOLE 40 MG TABLET PO SCH (18:37)
[2021-04-11 18:39] LABS: Hepatitis A Antibody IgM Nonreactive (Nonreactive); Hepatitis B Core IgM Nonreactive (Nonreactive); Hepatitis B Surface Antigen Nonreactive (Nonreactive); Hepatitis C IgG Antibody Nonreactive (Nonreactive)
[2021-04-11] MEDS: cloNIDine HCL 0.1 MG TAB PO SCH (21:06)
[2021-04-12] MEDS: hydrALAZINE HCL 50 MG TAB PO SCH ×4 (00:19→23:23)
[2021-04-12] MEDS: METOPROLOL TARTRATE 50 MG TAB PO SCH ×4 (00:19→23:23)
[2021-04-12] MEDS: amLODIPine 10 MG TAB PO SCH ×2 (08:29→08:35)
[2021-04-12] MEDS: ASPIRIN 81 MG PO SCH (08:33)
[2021-04-12] MEDS: MAGNESIUM OXIDE 400 MG TAB PO SCH (08:34)
[2021-04-12] MEDS: lisinopriL 20 MG TAB PO SCH ×2 (08:34→20:57)
[2021-04-12] MEDS: CHOLECALCIFEROL 25 MCG (1000 IU) TABLET PO SCH (08:34)
[2021-04-12] MEDS: PANTOPRAZOLE 40 MG TABLET PO SCH (08:34)
[2021-04-12] MEDS: SODIUM CHLORIDE 0.9% 1,000 ML IV SCH ×4 (08:36→13:04)
[2021-04-12] MEDS: CITALOPRAM HYDROBROMIDE 10 MG TAB PO SCH (08:40)
[2021-04-12] MEDS: hydroCHLOROthiazide 25 MG TAB PO SCH (08:41)
[2021-04-12] MEDS: ACETAMINOPHEN TAB 325 MG TAB PO PRN (08:56)
[2021-04-12 10:54] LABS: Basophils # (A) 0.1 k/uL (0-0.2); Basophils % (A) 1 %; Eosinophils # (A) 0.5 k/uL (0-0.7); Eosinophils % (A) 5 %; HCT 49.1 % (34.0-46.0); HGB 15.2 gm/dL (11.4-16.0); Lymphocytes # (A) 2.4 k/uL (1.0-4.8); Lymphocytes % (A) 25 %; MCV 96.6 fL (80.0-100.0); Mean Platelet Volume 8.8; Monocytes # (A) 0.5 k/uL (0-1.0); Monocytes % (A) 6 %; Neutrophils # (A) 5.8 k/uL (1.3-7.7); Neutrophils % (A) 62 %; Platelet Count 289 k/uL (150-450); RBC 5.08 m/uL (3.80-5.40); RDW 12.8 % (11.5-15.5); WBC 9.3 k/uL (3.8-10.6)
[2021-04-12 10:58] LABS: ALT 36 U/L (4-34); AST 35 U/L (14-36); African American GFR (CKD) 54 (>60 ml/min/1.73 sqM); Albumin 3.9 g/dL (3.5-5.0); Albumin/Globulin Ratio 1.3; Alkaline Phosphatase 73 U/L (38-126); Anion Gap 9 mmol/L; Bilirubin,Unconjugated 0.2 mg/dL (0.0-1.1); Blood Urea Nitrogen 10 mg/dL (7-17); Calcium 9.4 mg/dL (8.4-10.2); Carbon Dioxide 25 mmol/L (22-30); Chloride 103 mmol/L (98-107); Glucose 100 mg/dL (74-99); Non-African American GFR(CKD) 47 (>60 ml/min/1.73 sqM); Potassium 4.5 mmol/L (3.5-5.1); Sodium 137 mmol/L (137-145); Total Bilirubin 0.4 mg/dL (0.2-1.3); Total Protein 6.9 g/dL (6.3-8.2)
--- NOTE | 2021-04-12 12:45 | ECHOF ---
Referral Reason:uncontrolled htn MEASUREMENTS -------- HEIGHT: 152.4 cm WEIGHT: 68.0 kg BP: 137/97 RVIDd: 2.5 cm (< 3.3) IVSd: 0.9 cm (0.6 - 1.1) LVIDd: 3.9 cm (3.9 - 5.3) LVPWd: 1.2 cm (0.6 - 1.1) IVSs: 1.1 cm LVIDs: 3.2 cm LVPWs: 1.2 cm Ao Diam: 2.5 cm (2.0 - 3.7) AV Cusp: 1.8 cm (1.5 - 2.6) MV EXCURSION: 14.382 mm (> 18.000) MV EF SLOPE: 78 mm/s (70 - 150) EPSS: 0.4 cm MV E Kvng: 0.71 m/s MV DecT: 210 ms MV A Kvng: 0.63 m/s MV E/A Ratio: 1.12 RAP: 5.00 mmHg RVSP: 9.35 mmHg FINDINGS -------- Sinus rhythm. This was a technically good study. LV size, wall thickness and systolic function are normal, with an EF greater than 55%. The left marcello tricular size is normal. The right ventricle is normal in size. The left atrial size is normal. The right atrial size is normal. The aortic valve is trileaflet, and appears structurally normal. No aortic stenosis or regurgitation. Mild mitral regurgitation is present. Mild tricuspid regurgitation present. Right ventricular systolic pressure is normal at < 35 mmHg. There is no pulmonic regurgitation present. There is no pericardial effusion. CONCLUSIONS -------- 1. LV size, wall thickness and systolic function are normal, with an EF greater than 55%. 2. The left ventricular size is normal. 3. The right ventricle is normal in size. 4. The left atrial size is normal. 5. The right atrial size is normal. 6. The aortic valve is trileaflet, and appears structurally normal. No aortic stenosis or regurgitati on. 7. Mild mitral regurgitation is present. 8. Mild tricuspid regurgitation present. 9. There is no pericardial effusion. PRIMER INSERTING MACHINE OPERATOR: Antoinette River RDCS
--- NOTE | 2021-04-12 16:30 | PN ---
PROGRESS NOTE Patient is seen for followup for uncontrolled hypertension. So far, all workup has been negative, including CT angiogram of the renal arteries. Serum aldosterone and renal levels are pending along with plasma metanephrine levels. A 24-hour urine for catecholamines was ordered. It does not look like the collection has started yet. Patient's blood pressure is actually much lower now, with systolic going down to 80s with a blood pressure of 88/60 at night. Patient states that her blood pressure is usually low when she is sleeping or lying, but significantly increases as she is up and about. Patient states she is quite busy at home. She has 5 kids, and 3 of them are special needs. On examination today, blood pressure was 122/88, heart rate 69 per minute. She is afebrile. EXAMINATION OF THE HEART: S1 and S2. EXAMINATION OF LUNGS: Bilateral breath sounds are heard. Abdomen is soft, non-tender. Examination of lower extremities shows no evidence of edema. CIRCUIT COURT CLERK EXAM: Grossly intact. Labs show sodium 137, potassium 4.5, chloride 103, BUN 10, serum creatinine 1.43, hemoglobin 15.2. ASSESSMENT: 1. Hypertensive emergency with blood pressure currently too low. The morning medications have been held, as we had a systolic of 88 at 2 a.m. At this time patient is advised to be ambulatory. She did take a shower. However, her blood pressure was not rechecked. I have advised her to walk in the hallway and we will recheck her blood pressure. If it remains low, the hydralazine dose will be decreased with plans for eventual discontinuation of clonidine. Patient should be maintained on NAYE inhibitors along with thiazide diuretics. She may continue with the beta blockers as well. The IV fluids will be discontinued. 2. Acute kidney injury secondary to fluctuation in blood pressure in the setting of use of NAYE inhibitors. Expect improvement as blood pressure stabilizes. Creatinine on admission was 0.6 mg/dL. Patient also had IV contrast and therefore we will continue to monitor for contrast-induced ATN. PLAN: Continue IV fluids, as serum creatinine has increased. Avoid hypotension. I will add parameters to medications and check blood pressure when patient is ambulatory. Decrease hydralazine if blood pressure remains low. MMODL / IJN: [id number] /
--- NOTE | 2021-04-12 16:45 | P.PN ---
Subjective Progress Note Date: 04/12/21 Principal diagnosis: Patient with a history of dx:chiari malformation which is heterogenous Christiano disorders that are defined by anatomic abnormalities of cerebellum, brainstem and craniocervical junction with the downwards displacement of cerebellum either alone or together with lower medulla into the spinal canal with the symptoms of headache which patient she had exacerbated with the hypertensive crisis with the blood pressure in the office and in the ER was more than 200 systolic and more than 110 diastolic. Progress note date of service 04/12/2021. Dictation by Dr. Karl Beach [facility]. Patient seen today [id number] discussed with the patient the current problem. Discussion with the patient to clarify her illness and the past, she did not have the syndrome of BUDD-CHIARI syndrome which is related to the liver and she had no liver problem in the past or now. 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 Code fo rted G93.5, patient underwent decompression by Dr. Aixa Blankenship M.D. on 10/27/2019 date of her surgery subsequently patient did well however now her symptoms recurrent with headache never stopped. She had as outpatient by the neurosurgeon MRI, patient had the disc with her in the hospital and I did spoke with lora Clancy the neurologist, and he will review the disc of the MRI to see any development on her disease. In regard patient hemodynamic: Her blood pressure dropped significantly this morning to 80/90 systolic and the nurse held the medication and I did order for her IV fluid 0.9 normal saline 100 mL/h. For 24 hour, patient also was finished her urine collection which ordered by Dr. Barger the switch cleaner hopefully the results will be soon because it is sent out to the lab in [facility] Echocardiogram was read with no evidence except that the disease no hypertrophy of the cardiac muscle with normal ejection fraction. The carotid duplex study was normal., Chest x-rays normal, initial computed tomography scan of the brain was negative. Ultrasound of the kidneys bilateral indicating small calculus 1-2 mm of both sides of the kidney with no pain or concern, urine analysis was negative no infection. Renal angiogram was also negative but her creatinine is mildly elevated. And will leave that for the nephrology to assess. [id number] exam: The right facial drooping resulted. Head was normocephalic and atraumatic, pupil was equal reactive, normal hearing, oropharynx normal natural teeth able to eat and swallow. Neck was supple no bruits no lymphadenopathy trachea midline Chest is clear to auscultation and percussion Heart regular sinus rhythm no dysrhythmia with murmur 1-2/6 Abdomen is soft positive bowel sounds no tenderness in the 4 quadrants Extremities no edema and positive pulses bilateral and symmetrical Neurologically: Mainly into headache associated with her symptoms and doesn't result. Assessment #1 hypertensive crisis improved #2 accelerated hypertension #3 hypotension with the blood pressure dropped to 90s systolic in a.m. #4 coronavirus negative. #5 resolution of right facial drooping #6Chiari 1 malformation with decompression done in the past 10/27/2019 by the neurosurgeon Dr. Aixa Blankenship Plan: #1 with the discussion with Dr. Gonsalez neurologist who will be evaluating the MRI #2 we'll wait for the results of the testing for the evaluation of secondary hypertension. #3 monitoring the blood pressure which is mobile at this time with upset and downs. #4 will wait for the results of the testing for for further definitive t reatment. #5 I did put parameter on the medication for blood pressure to avoid hypotension. Objective - Vital Signs Vital signs: Vital Signs Temp 98.2 F 04/12/21 14:26 Pulse 69 04/12/21 14:26 Resp 16 04/12/21 14:26 BP 122/88 04/12/21 14:26 Pulse Ox 96 04/12/21 14:26 Intake & Output 04/11/21 04/12/21 04/12/21 18:59 06:59 18:59 Intake Total 300 Balance 300 Intake: Oral 300 Other: Voiding Method Toilet Toilet Toilet # Voids 1 2 4 - Labs CBC & Chem 7: 04/12/21 05:02 04/12/21 05:02 Labs: Abnormal Lab Results - Last 24 Hours (Table) 04/12/21 04/12/21 Range/Units 05:02 05:02 Hct 49.1 H (34.0-46.0) % Creatinine 1.43 H (0.52-1.04) mg/dL Glucose 100 H (74-99) mg/dL ALT 36 H (4-34) U/L
[2021-04-12] MEDS: cloNIDine HCL 0.1 MG TAB PO SCH (20:57)
--- NOTE | 2021-04-13 00:43 | P.PN ---
Subjective Progress Note Date: 04/12/21 Patient was seen for a follow-up. Patient states that her blood pressure still goes high, when she starts walking. Her right facial numbness has almost resolved. Per nursing report, supine blood pressure was 123/81. After she walked in the hallway, her blood pressure went up to 162/108. Cardiology already on board. I do not believe it is related to Chiari malformation. She had undergone successful suboccipital craniotomy. MRI report is available now. Patient has a follow-up appointment with her neurosurgeon on 04/26/2021. Objective - Vital Signs Vital signs: Vital Signs Temp 98.2 F 04/12/21 14:26 Pulse 69 04/12/21 14:26 Resp 16 04/12/21 14:26 BP 122/88 04/12/21 14:26 Pulse Ox 96 04/12/21 14:26 Intake & Output 04/11/21 04/12/21 04/12/21 18:59 06:59 18:59 Intake Total 300 Balance 300 Intake: Oral 300 Other: Voiding Method Toilet Toilet Toilet # Voids 1 2 4 - Exam Patient's mental status, speech and language functions are normal. Cranial nerves are normal. No pronator drift and the strength is normal. No ataxia. - Labs CBC & Chem 7: 04/12/21 05:02 04/12/21 05:02 Labs: Abnormal Lab Results - Last 24 Hours (Table) 04/12/21 04/12/21 Range/Units 05:02 05:02 Hct 49.1 H (34.0-46.0) % Creatinine 1.43 H (0.52-1.04) mg/dL Glucose 100 H (74-99) mg/dL ALT 36 H (4-34) U/L Assessment and Plan Assessment: * Accelerated hypertension * Right facial paresthesias, rule out TIA. * History of suboccipital craniotomy for Chiari 1 malformation, in January 2020. Plan: * Computed tomography scan of the head showed no acute process. * Carotid Doppler was performed, which revealed no significant stenosis. Tortuous internal carotid arteries. * 2-D echo revealed normal left-ventricular size. EF is greater than 55%. Left-ventricular size is normal. Left atrial size is normal. * Continue aspirin 81 mg daily indefinitely. * Fasting lipid panel, hemoglobin A1c pending. * We received report of MRI of the brain without contrast from 03/30/2021, which revealed status post suboccipital craniotomy for Chiari decompression with satisfactory postoperative appearance. Diffusion weighted images were negative. * MRI of the cervical spine from 03/30/2021 revealed status post craniotomy for Chiari decompression with satisfactory postoperative appearance. Slight disc bulge at C5 6. There is straightening of the cervical lordotic curvature. While this may be related to patient positioning, cervical muscular spasm can have a similar appearance. * CT angiogram of the renal artery was negative for any stenosis. * Telemetric monitoring showing sinus rhythm, with sinus bradycardia in the 50s with some PVC. No other arrhythmia. * Nephrology following for uncontrolled blood pressure. * Neurologically clear. Patient does have a follow-up appointment with her neurosurgeon on 04/26/2021.
[2021-04-13] MEDS: LEVOTHYROXINE 25 MCG TAB PO SCH (06:21)
[2021-04-13] MEDS: ASPIRIN 81 MG PO SCH (10:15)
[2021-04-13] MEDS: MAGNESIUM OXIDE 400 MG TAB PO SCH (10:15)
[2021-04-13] MEDS: amLODIPine 10 MG TAB PO SCH (10:16)
[2021-04-13] MEDS: CHOLECALCIFEROL 25 MCG (1000 IU) TABLET PO SCH (10:16)
[2021-04-13] MEDS: PANTOPRAZOLE 40 MG TABLET PO SCH (10:17)
[2021-04-13] MEDS: CITALOPRAM HYDROBROMIDE 10 MG TAB PO SCH (10:17)
[2021-04-13] MEDS: METOPROLOL TARTRATE 50 MG TAB PO SCH ×3 (10:23→20:54)
[2021-04-13] MEDS: hydrALAZINE HCL 50 MG TAB PO SCH (10:24)
[2021-04-13] MEDS: lisinopriL 20 MG TAB PO SCH (10:25)
[2021-04-13] MEDS: hydroCHLOROthiazide 25 MG TAB PO SCH (10:59)
[2021-04-13 11:12] LABS: African American GFR (CKD) >90 (>60 ml/min/1.73 sqM); Anion Gap 7 mmol/L; Blood Urea Nitrogen 10 mg/dL (7-17); Calcium 9.1 mg/dL (8.4-10.2); Carbon Dioxide 26 mmol/L (22-30); Chloride 103 mmol/L (98-107); Glucose 122 mg/dL (74-99); Non-African American GFR(CKD) >90 (>60 ml/min/1.73 sqM); Potassium 4.3 mmol/L (3.5-5.1); Sodium 136 mmol/L (137-145)
--- NOTE | 2021-04-13 14:39 | PN ---
PROGRESS NOTE Patient is seen for followup for hypertensive emergency. Patient's blood pressure is much better controlled; in fact, it is on the lower side. Serum creatinine had increased to 1.4 yesterday. Patient is maintained on IV fluids and creatinine is back down to 0.7. Workup for secondary causes has been negative thus far, including renal angiogram which did not show any evidence of renal artery stenosis. Serum aldosterone renal levels are pending along with plasma free metanephrines. A 24-hour urine for catecholamines is also pending. Patient's blood pressure has been running around 114 to 120 mmHg systolic. I do see a pressure of 145/92 this afternoon. Patient states that her blood pressure is usually normal to lowish when she is lying down. It increases when she is up and about. She has been quite stressed out at home. They have 5 kids with 3 being special needs. On examination today, blood pressure 114/74 this morning. Repeat blood pressure 145/92, heart rate 64 per minute. She is afebrile. EXAMINATION OF THE HEART: S1 and S2. EXAMINATION OF LUNGS: Bilateral breath sounds are heard. Abdomen is soft, non-tender. Examination of lower extremities shows no evidence of edema. ELECTRIC SOLDERER EXAM: Grossly intact. Labs show sodium 136, potassium 4.3, chloride 103, BUN 10, serum creatinine 0.7. ASSESSMENT: Hypertensive emergency with facial paresthesias, currently resolved, being followed by Neurology. Blood pressure is significantly improved; in fact, slightly on the lower side. Patient's blood pressure medications had been held. I will decrease the dose of hydralazine. Patient should continue with the hydrochlorothiazide. She is advised to monitor her blood pressure at home. I will discontinue the normal saline and patient is advised close followup as outpatient. We will follow up on the aldosterone renal levels and the catecholamines. So far, the CT angiogram for renal artery stenosis was negative. Patient states that she is considering quitting her job, and I have advised her that she would probably benefit from taking off for about 3-4 weeks to monitor her blood pressure and avoid undue stress. Patient is advised regarding DASH diet and increased potassium intake to help with the blood pressure as well. She is also advised to avoid use of nonsteroidal anti-inflammatory agents. MMODL / IJN: [id number] /
[2021-04-13] MEDS: SODIUM CHLORIDE 0.9% 1,000 ML IV SCH (15:29)
[2021-04-13 15:41] LABS: Chol/HDL Ratio 4.69 Ratio; HDL Cholesterol 42.4 mg/dL (40.00-60.00); LDL Cholesterol,Calculated 131.4 mg/dL (0.0-131.0); VLDL Calculation 25.2 mg/dL (5.00-40.00)
--- NOTE | 2021-04-13 15:53 | P.PN ---
Subjective Progress Note Date: 04/13/21 Progress note date of service 04/13/[address] Leonard. Patient seen and evaluated [id number], also seen today by Dr. Barger nephrology. Patient seen by lora Hammonds neurologist and he reviewed the MRI of the brain which was obtained at the desk from different facility which was ordered by Dr. Kruse the neurosurgeon who did the decompression on chairi 1 malformation in 10/27/2019 and she will be seeing her on 04/26/2021 for follow-up. Dr. 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 No headache which was persistent which is the status symptoms with the recurrence, has been resolved with controlling the blood pressure, however the blood pressure with ambulation goes up systolic and diastolic. Patient had workup for secondary hypertension send to the laboratories in [facility] and the results not available today and hopefully available tomorrow for secondary hypertension. The initial workup with angiogram of the renal was negative for renal artery stenosis and fibrovascular disease of the kidneys, ultrasound was also showed small calculus in both kidney 1-2 mm which will not do that high blood pressure. The acceleration. Patient had also the carotid duplex study which was no hemodynamic stenosis, also was echocardiogram which did not indicating hypertrophy of the heart or valvular heart disease. And seen by accounting/finance tutor The laboratory was including serum I'll discuss the role in and renin activity, catecholamine 24 hour urine as well as plasma free metanephrine which is no result yet. Her blood pressure with ambulation goes up to 150/95 also 145/92 with laying down blood pressure is improving to 114/120. Dr. Barger indicating that in her note with the 5 children and 3 of them being special-needs and I stress level for the work. As discussed with the patient today she will be ambulated meanwhile will check monitoring the blood pressure. Lab patient had creatinine went up to 1.4 with the hypotension and post angiogram hydrated now it is normal 0.[address] Barger did discontinue the IV fluid. On examination : Patient is conscious alert oriented 3 no headache today, facial drooping resolved. Head was normocephalic and atraumatic Facial paresthesia has been resolved. She is able to eat and drink Neck was supple no JVD no thyromegaly no lymphadenopathy Chest was clear to auscultation and percussion Heart was regular sinus rhythm Abdomen is soft positive bowel sounds Extremities no edema. Neurologically no lateralizing sign with the underlying right facial drooping and paresthesia could be associated with TIA advised from the neurology to continue with the aspirin. Assessment: #1 right facial drooping and paresthesia has been resolved with the possible TIA #2 history of decompression with the craniotomy by Dr. Kruse the neurosurgeon with the [facility] [place] acute forChiari 1 malformation #3 accelerated and the hypertensive crisis currently controlled however it is low bile with ambulation #4 depression and anxiety #5 hydralazine has been adjusted the dose by Dr. Barger, also lisinopril has been discontinued the 20 mg by mouth twice a day by Dr. Barger. Current medication She is on #1 amlodipine 10 mg by mouth daily a.m., aspirin 81 mg daily, clonidine 0.1 mg at at bedtime , Hydrochlorothiazide 25 mg once daily a.m. lisinopril 10 mg once a day metoprolol tartrate 50 mg 3 times a day. Patient with a history of hypothyroidism, 25 g orally daily and magnesium oxide, and pantoprazole 40 mg before meals breakfast Xanax 0.25 mg twice a day when necessary for anxiety. Plan we will ambulate as tolerated and if the blood pressure monitored and if patient stability plan for discharge tomorrow morning if patient stable. Objective - Vital Signs Vital signs: Vital Signs Temp 98.5 F 04/13/21 15:00 Pulse 73 04/13/21 15:00 Resp 16 04/13/21 15:00 BP 137/88 04/13/21 15:00 Pulse Ox 97 04/13/21 15:00 Intake & Output 04/12/21 04/13/21 04/13/21 18:59 06:59 18:59 Intake Total 300 Balance 300 Intake: Oral 300 Other: Voiding Method Toilet Toilet # Voids 4 3 3 - Labs CBC & Chem 7: 04/12/21 05:02 04/13/21 10:11 Labs: Abnormal Lab Results - Last 24 Hours (Table) 10/08/21 Range/Units 10:11 Sodium 136 L (137-145) mmol/L Glucose 122 H (74-99) mg/dL
[2021-04-13] MEDS: hydrALAZINE HCL 25 MG TAB PO SCH (20:53)
[2021-04-13] MEDS: cloNIDine HCL 0.1 MG TAB PO SCH (20:54)
[2021-04-13] MEDS: ACETAMINOPHEN TAB 325 MG TAB PO PRN (20:55)
[2021-04-13] MEDS ORDERED: ATORVASTATIN 20 MG TAB PO SCH (21:00)
[2021-04-13] MEDS ORDERED: lisinopriL 10 MG TAB PO SCH (21:00)
--- NOTE | 2021-04-14 08:15 | P.PN ---
Subjective Patient is seen in follow-up for hypertension. Blood pressure is low while she is resting and higher while she is active. Blood pressure stable overnight. No dizziness. No chest pain or shortness of breath. Vital signs are stable. General: The patient appeared well nourished and normally developed. HEENT: Head exam is unremarkable. LUNGS: Breath sounds decreased. HEART: Rate and Rhythm are regular. ABDOMEN: Soft, no distention. EXTREMITITES: No edema. Objective - Vital Signs Vital signs: Vital Signs Temp 97.8 F 04/14/21 01:32 Pulse 66 04/14/21 01:32 Resp 14 04/14/21 01:32 BP 95/67 04/14/21 01:32 Pulse Ox 98 04/14/21 01:32 Intake & Output 04/13/21 04/14/21 04/14/21 18:59 06:59 18:59 Intake Total 240 Balance 240 Intake: Oral 240 Other: Voiding Method Toilet # Voids 2 2 - Labs CBC & Chem 7: 04/12/21 05:02 04/13/21 10:11 Labs: Abnormal Lab Results - Last 24 Hours (Table) 04/12/21 04/12/21 04/13/21 Range/Units 05:02 13:29 10:11 Sodium 136 L (137-145) mmol/L Glucose 122 H (74-99) mg/dL LDL Cholesterol, Calc 131.4 H (0.0-131.0) mg/dL Renin Direct 131.8 H (3.1 - 57.1) pg/mL Assessment and Plan Plan: Assessment: 1. Hypertensive emergency with facial paresthesias. Resolved. No evidence of renal artery stenosis. TSH normal. Serum aldosterone 5.8 and renin 131.8. Plasma metanephrines and urine catecholamines pending. No adrenal mass noted. Plan: Stop clonidine. Maintain rest of antihypertensive meds. Advised low salt diet. Advised patient to monitor her blood pressure closely at home and to call if staying less than 100/60 or greater than 140/90. Follow-up outpatient in 1 week.
[2021-04-14] MEDS ORDERED: lisinopriL 10 MG TAB PO SCH ×2 (09:00)
[2021-04-14 09:13] VITALS: BP 115/74; PULSE 85; RESP 16; TEMP 98.3
--- NOTE | 2021-04-14 09:26 | P.PN ---
Subjective Progress Note Date: 04/13/21 Patient was seen for a follow-up. Patient states she is feeling better. Offers no new complaints. No focal symptoms. Her blood pressure is slightly better controlled. Per nursing report, on 04/12/2021, supine blood pressure was 123/81. After she walked in the hallway, her blood pressure went up to 162/108. Cardiology already on board. I do not believe it is related to Chiari malformation. She had undergone successful suboccipital craniotomy. MRI report is available now. Patient has a follow-up appointment with her neurosurgeon on 04/26/2021. Objective - Vital Signs Vital signs: Vital Signs Temp 98.3 F 04/14/21 08:00 Pulse 85 04/14/21 08:00 Resp 16 04/14/21 08:00 BP 115/74 04/14/21 08:00 Pulse Ox 97 04/14/21 08:00 Intake & Output 04/13/21 04/14/21 04/14/21 18:59 06:59 18:59 Intake Total 240 Balance 240 Intake: Oral 240 Other: Voiding Method Toilet # Voids 2 2 - Exam Patient's mental status, speech and language functions are normal. Detailed testing deferred. - Labs CBC & Chem 7: 04/12/21 05:02 04/13/21 10:11 Labs: Abnormal Lab Results - Last 24 Hours (Table) 04/12/21 04/12/21 04/13/21 Range/Units 05:02 13:29 10:11 Sodium 136 L (137-145) mmol/L Glucose 122 H (74-99) mg/dL LDL Cholesterol, Calc 131.4 H (0.0-131.0) mg/dL Renin Direct 131.8 H (3.1 - 57.1) pg/mL Assessment and Plan Assessment: * Accelerated hypertension * Right facial paresthesias, rule out TIA. * History of suboccipital craniotomy for Chiari 1 malformation, in January 2020. Plan: * Computed tomography scan of the head showed no acute process. * Carotid Doppler was performed, which revealed no significant stenosis. Tortuous internal carotid arteries. * 2-D echo revealed normal left-ventricular size. EF is greater than 55%. Left-ventricular size is normal. Left atrial size is normal. * Continue aspirin 81 mg daily indefinitely. * Fasting lipid panel with cholesterol 199, LDL 131, HDL 42 and triglycerides 126. We will start Lipitor 20 mg daily. * Hemoglobin A1c 5.2, normal. * We received report of MRI of the brain without contrast from 03/30/2021, which revealed status post suboccipital craniotomy for Chiari decompression with satisfactory postoperative appearance. Diffusion weighted images were negative. * MRI of the cervical spine from 03/30/2021 revealed status post craniotomy for Chiari decompression with satisfactory postoperative appearance. Slight disc bulge at C5 6. There is straightening of the cervical lordotic curvature. While this may be related to patient positioning, cervical muscular spasm can have a similar appearance. * CT angiogram of the renal artery was negative for any stenosis. * Telemetric monitoring in the last 24 hours showing sinus rhythm, sinus bradycardia in the 50s. No other arrhythmia. * Nephrology following for uncontrolled blood pressure. * Neurologically clear. Patient does have a follow-up appointment with her neurosurgeon on 04/26/2021. We will sign off. Please reconsult if any concerns.
[2021-04-14] MEDS: PANTOPRAZOLE 40 MG TABLET PO SCH (09:30)
[2021-04-14] MEDS: hydroCHLOROthiazide 25 MG TAB PO SCH (09:30)
[2021-04-14] MEDS: CHOLECALCIFEROL 25 MCG (1000 IU) TABLET PO SCH (09:30)
[2021-04-14] MEDS: LEVOTHYROXINE 25 MCG TAB PO SCH (09:30)
[2021-04-14] MEDS: amLODIPine 10 MG TAB PO SCH (09:30)
[2021-04-14] MEDS: CITALOPRAM HYDROBROMIDE 10 MG TAB PO SCH (09:30)
[2021-04-14] MEDS: ASPIRIN 81 MG PO SCH (09:31)
[2021-04-14] MEDS: METOPROLOL TARTRATE 50 MG TAB PO SCH (09:31)
[2021-04-14] MEDS: MAGNESIUM OXIDE 400 MG TAB PO SCH (09:31)
[2021-04-14] MEDS: hydrALAZINE HCL 25 MG TAB PO SCH (09:31)
--- NOTE | 2021-04-14 09:43 | P.DS ---
Providers Date of admission: 04/10/21 19:09 Expected date of discharge: 04/14/21 Attending physician: Augustine Barajas Consults: 04/10/21 18:22 Consult Physician Routine Consulting Provider: Reyna Salgado Consult Reason/Comments: HTN urgency Do you want consulting provider notified?: Yes Consult Physician Routine Consulting Provider: Cristy Barger Consult Reason/Comments: HTN Urgency Do you want consulting provider notified?: Yes 04/10/21 19:49 Consult Physician Routine Consulting Provider: Sunshine Ho Consult Reason/Comments: Right facial drooping with possible TIA, hypertensive crisis Do you want consulting provider notified?: Yes Primary care physician: Augustine Barajas Dictation of the discharge summary date of service 04/14/[address] Leonard. Final diagnoses: #1 hypertensive crisis, was hypertension urgency not controlled at her home. #2 resistant hypertension #3 labile hypertension. With multiple medication of different families. 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 With recurrent symptoms #6 MRI of the brain was done in different institution, obtained and reviewed by our neurologist Georgia Clancy as well. #7 secondary hypertension suspected 8 #8 abnormal elevation of Renin level 131.8 "normal level 3.1 -57.1 ". And serum of the steroid on 5.8 considered normal. #9 history of hypothyroidism current TSH 3.6-0 which is stabbing nebulized. And pro-calcitonin normal 0.03 #10 hyperlipidemia, LDL 131.4, Dr. Loera daily started her on atorvastatin 20 mg daily at bedtime. #11 no evidence of diabetes mellitus with hemoglobin A1c 5.2. #12 renal function is stabbing nebulized, her creatinine 1.4 resolved with hydration to 0.7, with mild dehydration. #13 right facial drooping with paresthesia resolved on the second day of admission as seen by the neurologist. Consulting physician: #[address] Barger/Dr. Wilson #2 cardiology. #3 neurologist. Hospital course: Patient admitted through the emergency room with the hypertensive crisis blood pressure 207 systolic and diastolic and at home and in the office 220 systolic over 120 diastolic. 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 Multiple family member of antihypertensive medication has been given to the patient to attempt to decrease her blood pressure. Daily adjustment of her medication with the sudden drop of her blood pressure to the 90 and 88 and found a creatinine elevated IV fluid was given over the 24 hour period only and her renal function stabilized back again and her blood pressure adjusted and in the morning it become very low and medication has been adjusted by Dr. Barger and Dr. Anguiano and myself. In regard of the cardiology did see her and she had the echocardiogram which was left ventricular size and wall thickness and systolic function normal with the ejection fraction 55% and the left ventricle size is normal right ventricle size is normal left atrial size is normal right atrial size is normal aortic valve trileaflet no ST doses no regurgitation. She had mild tricuspid regurgitation and no pericardial effusion. Patient also has cardiology consult on the chart. As patient continued to be improved gradually ambulated and also check her blood pressure orthostatic as well as after she ambulate as she stated that with ambulation patient have increased blood pressure to accelerated limit. ER presentation: Headache, right facial paresthesia and right facial drooping and was suspicious of TIA. Patient started on aspirin 81 mg the recommendation of the neurologist. Hospital discharge exam Patient conscious alert oriented 3 ambulatory, no headache no blurred vision no paresthesia no facial drooping. Head was normocephalic and atraumatic pupil was equal reactive conjunctivae Bellis pink sclera was nonicteric. No lateralizing sign Oropharynx is normal with natural teeth able to eat and swallow with no choking. Upper and lower extremities normal movement and ambulatory. Neck was supple no JVD no thyromegaly no lymphadenopathy trachea midline, carotid duplex study was done and was normal hemodynamic significant stenosis. Chest: Clear to auscultation and percussion no wheezes no rhonchi's. Heart: Regular sinus rhythm and echo was mentioned above no chest pain. Abdomen soft positive bowel sounds no organ enlargement no abdominal pain no diarrhea or constipation. Extremities no edema and positive pulses bilateral and symmetrical. Psychiatry a shunt had 5 children 3 of them has a suspicion need beside her working and is multiple stress. Neurologically she had previous decompression of the foramen magnum with the underlying Chaiari-1 malformation, patient underwent decompression in October [address] Aixa Blankens[facility]. On discharge patient vital signs stable with temperature 97.8 and 90 8.4F oral her pulse rate 66 and 72 and respiratory rate ranging between 20 and 14 and her blood pressure ranging between 123/90 and 95/67 however patient stated that her blood pressure always in the morning is low and down we decrease her lisinopril from twice a day to once a day Patient stable for discharge today, she will be off for one week will be seen in the office next Friday prescription given to her for her work and will be seeing her next week as well as Dr. Barger will follow her suspicion. With her renin activity is elevated for for further evaluation and because also the results of her collection of the urine for the catecholamine and other testing ordered by Dr. Barger not available yet and she will follow her next week in the office and patient advised to call and make appointment has also today seen by Dr. Wilson corporate compliance director and he told her to follow-up in one week as well. I'll be seeing her next week as well for readjusting medication and recheck in her hypertension have any symptom may arise. Patient Condition at Discharge: Stable Plan - Discharge Summary Discharge Rx Participant: No New Discharge Prescriptions: New hydrALAZINE HCL [Apresoline] 25 mg PO BID #60 tab Atorvastatin [Lipitor] 20 mg PO HS #30 tab amLODIPine [Norvasc] 10 mg PO DAILY #30 tab Pantoprazole [Protonix] 40 mg PO AC-BRKFST #30 tab Levothyroxine Sodium [Synthroid] 25 mcg PO DAILY@0630 tab lisinopriL [Zestril] 10 mg PO DAILY #30 tab hydroCHLOROthiazide [Hydrodiuril] 25 mg PO DAILY #30 tab Metoprolol Tartrate [Lopressor] 50 mg PO TID #90 tab Magnesium Oxide [Mag-Ox] 200 mg PO DAILY tab Cholecalciferol [Vitamin D3 (25 Mcg = 1000 Iu)] 25 mcg PO DAILY tablet Continue cloNIDine HCL [Catapres] 0.1 mg PO HS Aspirin EC [Ecotrin Low Dose] 81 mg PO DIRECTED EPINEPHrine 0.15 mg IM ONCE PRN PRN Reason: Anaphylaxis Citalopram Hydrobromide [Citalopram HBr] 10 mg PO DAILY Discontinued lisinopriL 20 mg PO BID Metoprolol Tartrate [Lopressor] 50 mg PO DIRECTED hydrALAZINE HCL [Apresoline] 50 mg PO DIRECTED methocarbamoL [Methocarbamol] 750 mg PO TID Discharge Medication List Aspirin EC [Ecotrin Low Dose] 81 mg PO DIRECTED 04/10/21 [History] Citalopram Hydrobromide [Citalopram HBr] 10 mg PO DAILY 04/10/21 [History] EPINEPHrine 0.15 mg IM ONCE PRN 04/10/21 [History] cloNIDine HCL [Catapres] 0.1 mg PO HS 04/10/21 [History] Atorvastatin [Lipitor] 20 mg PO HS #30 tab 04/14/21 [Rx] Cholecalciferol [Vitamin D3 (25 Mcg = 1000 Iu)] 25 mcg PO DAILY tablet 04/14/21 [Rx] Levothyroxine Sodium [Synthroid] 25 mcg PO DAILY@0630 tab 04/14/21 [Rx] Magnesium Oxide [Mag-Ox] 200 mg PO DAILY tab 04/14/21 [Rx] Metoprolol Tartrate [Lopressor] 50 mg PO TID #90 tab 04/14/21 [Rx] Pantoprazole [Protonix] 40 mg PO AC-BRKFST #30 tab 04/14/21 [Rx] amLODIPine [Norvasc] 10 mg PO DAILY #30 tab 04/14/21 [Rx] hydrALAZINE HCL [Apresoline] 25 mg PO BID #60 tab 04/14/21 [Rx] hydroCHLOROthiazide [Hydrodiuril] 25 mg PO DAILY #30 tab 04/14/21 [Rx] lisinopriL [Zestril] 10 mg PO DAILY #30 tab 04/14/21 [Rx] Follow up Appointment(s)/Referral(s): Augustine Barajas MD [Primary Care Provider] - 1 Week Activity/Diet/Wound Care/Special Instructions: Of work for 1 week duration to be seen next Friday in the office
[2021-04-17 12:37] LABS: Dopamine 24 Hr Urine 209 ug/day (65-400); Epinephrine 24 Hr Urine <2 ug/day (0-20); Norepinephrine 24 Hr Urine 32 ug/day (15-80); Total Catecholamines Urine 32 ug/day (15-100); Urine Creatinine,24 Hr 0.9 gm/24h (0.8-1.8)
[2021-04-19 11:27] LABS: Metanephrine, Free <25 pg/mL (< OR = 57); Normetanephrine, Free 25 pg/mL (< OR = 148); Total, Free (MN + NMN) 25 pg/mL (< OR = 205)
== END 2021-04-14 11:56 | disposition home or self-care (01) | DRG 304 ==
LOC: EC 15:43 → 6NMEDSUR 19:09 → OBSVTOIN 04-14 07:58
PROVIDERS: ADMIT Internal Medicine; ATTEND Internal Medicine
DX: I16.1 Hypertensive emergency (principal); G93.5 Compression of brain; N17.9 Acute kidney failure, unspecified; E03.9 Hypothyroidism, unspecified; E78.5 Hyperlipidemia, unspecified; F32.9 Major depressive disorder, single episode, unspecified; F41.9 Anxiety disorder, unspecified; H91.91 Unspecified hearing loss, right ear; I11.9 Hypertensive heart disease without heart failure; I15.9 Secondary hypertension, unspecified; E86.0 Dehydration; K21.9 Gastro-esophageal reflux disease without esophagitis; M79.7 Fibromyalgia; R29.810 Facial weakness; R51.9 Headache, unspecified; E55.9 Vitamin D deficiency, unspecified; I07.1 Rheumatic tricuspid insufficiency; Z20.822 Contact with and (suspected) exposure to COVID-19; Z79.82 Long term (current) use of aspirin; Z79.890 Hormone replacement therapy; Z79.899 Other long term (current) drug therapy; Z80.0 Family history of malignant neoplasm of digestive organs; Z79.1 Long term (current) use of non-steroidal anti-inflammatories (NSAID); K59.00 Constipation, unspecified; Z91.040 Latex allergy status; Z91.018 Allergy to other foods; Z88.0 Allergy status to penicillin; Z91.013 Allergy to seafood; Z98.51 Tubal ligation status; Z98.890 Other specified postprocedural states
CPT/HCPCS: 36415; 70450; 71046; 74175; 76770; 80048; 80053; 80061; 80074; 80076; 81003; 81025; 82088; 82384; 83036; 83605; 83735; 83835; 84145; 84244; 84443; 84484; 85025; 85610; 85730; 87635; 93005; 93306; 93880; 96361; 96374; 99284

== ENCOUNTER → 2021-09-11 | Outpatient (CLI) | payer OTHER ==
[2021-09-11 17:53] LABS: Reticulocyte % 1.19 % (0.10-1.80)
[2021-09-11 18:40] LABS: % Iron Saturation 19.75 (12.00-45.00); ALT 19 U/L (8-44); AST 25 U/L (13-35); African American GFR (CKD) 109.9 (60.0-200.0); Albumin 4.5 g/dL (3.8-4.9); Alkaline Phosphatase 89 U/L (41-126); BUN/Creat Ratio 13.88 Ratio (12.00-20.00); Blood Urea Nitrogen 11.1 mg/dL (9.0-27.0); Calcium 9.2 mg/dL (8.7-10.3); Carbon Dioxide 23.9 mmol/L (20.0-27.5); Chloride 100 mmol/L (96-109); Glucose 105 mg/dL (70-110); Iron 55 ug/dL (50-170); Non-African American GFR(CKD) 94.8 (60.0-200.0); Potassium 3.5 mmol/L (3.5-5.5); Sodium 138 mmol/L (135-145); Total Iron Binding Capacity 280 ug/dL (228-460); Total Protein 7.5 g/dL (6.2-8.2); Vitamin B12 >2000.0 pg/mL (200.0-944.0)
== END | disposition home or self-care (01) ==
LOC: LABWHC1 11:27
PROVIDERS: ATTEND Psychiatry & Neurology Neurology
DX: R53.83 Other fatigue (principal)
CPT/HCPCS: 36415; 80053; 82306; 82607; 82728; 82746; 83540; 83550; 84207; 84425; 84439; 84443; 84591; 85045; 85652; 86140

== ENCOUNTER → 2021-10-23 | Outpatient (CLI) | payer OTHER ==
[2021-10-23 22:53] LABS: Basophils # (A) 0.05 X 10*3/uL (0.00-0.10); Basophils % (A) 0.5 %; Eosinophils # (A) 0.28 X 10*3/uL (0.04-0.35); Eosinophils % (A) 2.6 %; HCT 44.5 % (37.2-46.3); HGB 14.4 g/dL (12.0-15.0); Immature Grans, Automated 0.3 %; Lymphocytes # (A) 2.28 X 10*3/uL (0.90-5.00); Lymphocytes % (A) 21.1 %; MCHC 32.4 g/dL (32.0-37.0); MCV 92.7 fL (80.0-97.0); Mean Platelet Volume 10.8 fL (9.5-12.2); Monocytes # (A) 0.66 X 10*3/uL (0.20-1.00); Monocytes % (A) 6.1 %; NRBC Per 100 WBC 0 /100 WBCS (0.0-0.0); Neutrophils # (A) 7.52 X 10*3/uL (1.80-7.70); Neutrophils % (A) 69.4 %; Platelet Count 331 X 10*3/uL (140-440); RDW 12.6 % (11.5-14.5); WBC 10.82 X 10*3/uL (4.50-10.00)
[2021-10-23 23:38] LABS: Rheumatoid Factor, Qnt <10 IU/mL (0-15)
[2021-10-24 02:42] LABS: Anti-DNA, DS unit <1.0 IU/mL; Anti-Smith Ab Interp NEGATIVE (NEGATIVE); Cyclic Citrull Pep IgG Unit <0.5 U/mL; Cyclic Citrullinated Pep IgG NEGATIVE (NEGATIVE); DNA Double-Stranded NEGATIVE (NEGATIVE); JO-1 IgG Antibody <0.2 AI; Scleroderma SC-70 Ab <0.2 AI
== END | disposition home or self-care (01) ==
LOC: LABWHC1 14:00
PROVIDERS: ATTEND Nurse Practitioner Family
DX: M25.50 Pain in unspecified joint (principal); D64.9 Anemia, unspecified
CPT/HCPCS: 36415; 83516; 85025; 86038; 86140; 86200; 86225; 86235; 86431

== ENCOUNTER → 2022-03-18 | Outpatient (CLI) | payer OTHER ==
[2022-03-18 13:04] LABS: Creatinine,Urine Random 125.7 mg/dL; Protein/Creatinine Ratio,Urine 0.048
[2022-03-18 18:48] LABS: African American GFR (CKD) 131.7 (60.0-200.0); Anion Gap 6.9 mmol/L (10.00-18.00); BUN/Creat Ratio 10.8 Ratio (12.00-20.00); Calcium 8.7 mg/dL (8.7-10.3); Carbon Dioxide 26.4 mmol/L (20.0-27.5); Magnesium 2.7 mg/dL (1.5-2.4); Non-African American GFR(CKD) 113.7 (60.0-200.0); Phosphorus 2.6 mg/dL (2.4-5.1); Potassium 4.8 mmol/L (3.5-5.5)
[2022-03-18 23:49] LABS: Appearance,Urine Cloudy (Clear); Bilirubin,Urine Negative (Negative); Blood,Urine Negative (Negative); Color,Urine Yellow (Yellow); Ketones,Urine Negative (Negative); Nitrite,Urine Negative (Negative); PH, Urine 8.5 (5.0-8.0); Specific Gravity,Urine 1.015 (1.001-1.030)
[2022-03-19 00:22] LABS: Bacteria,Urine 1+ /HPF (None Seen)
== END | disposition home or self-care (01) ==
LOC: LABWHC1 11:05
PROVIDERS: ATTEND Nurse Practitioner Acute Care
DX: I10 Essential (primary) hypertension (principal); R80.9 Proteinuria, unspecified; N39.0 Urinary tract infection, site not specified; E83.39 Other disorders of phosphorus metabolism
CPT/HCPCS: 36415; 80048; 81001; 82570; 83735; 84100; 84156; 87086

== ENCOUNTER → 2022-06-17 | Outpatient (CLI) | payer OTHER ==
--- NOTE | 2022-06-17 12:07 | XR ---
EXAMINATION TYPE: XR chest 2V DATE OF EXAM: 06/17/2022 COMPARISON: 04/10/2021 TECHNIQUE: PA and lateral views submitted. HISTORY: Cough FINDINGS: The lungs are clear and there is no pneumothorax, pleural effusion, or focal pneumonia. Heart size normal. No overt failure. Biapical pleural thickening. Scoliotic curvature of the spine. IMPRESSION: 1. No acute process.
[2022-06-17 17:52] LABS: Basophils # (A) 0.03 X 10*3/uL (0.00-0.10); Basophils % (A) 0.4 %; Eosinophils # (A) 0.05 X 10*3/uL (0.04-0.35); Eosinophils % (A) 0.6 %; HCT 47.7 % (37.2-46.3); HGB 15.9 g/dL (12.0-15.0); Immature Grans, Automated 0.3 %; Lymphocytes # (A) 0.82 X 10*3/uL (0.90-5.00); Lymphocytes % (A) 10.4 %; MCH 30.6 pg (27.0-32.0); MCHC 33.3 g/dL (32.0-37.0); MCV 91.9 fL (80.0-97.0); Mean Platelet Volume 11.1 fL (9.5-12.2); Monocytes # (A) 0.69 X 10*3/uL (0.20-1.00); Monocytes % (A) 8.7 %; NRBC Per 100 WBC 0 /100 WBCS (0.0-0.0); Neutrophils # (A) 6.29 X 10*3/uL (1.80-7.70); Neutrophils % (A) 79.6 %; Platelet Count 235 X 10*3/uL (140-440); RBC 5.19 X 10*6/uL (4.10-5.20); RDW 12.8 % (11.5-14.5)
[2022-06-17 18:06] LABS: African American GFR (CKD) 118.2 (60.0-200.0); Anion Gap 11.8 mmol/L (10.00-18.00); BUN/Creat Ratio 10.48 Ratio (12.00-20.00); Blood Urea Nitrogen 7.9 mg/dL (9.0-27.0); Calcium 9.2 mg/dL (8.7-10.3); Carbon Dioxide 23.2 mmol/L (20.0-27.5); Potassium 4.2 mmol/L (3.5-5.5)
== END | disposition home or self-care (01) ==
LOC: LABWHC1 10:41
PROVIDERS: ATTEND Internal Medicine
DX: J12.9 Viral pneumonia, unspecified (principal)
CPT/HCPCS: 36415; 71046; 80048; 85025

== ENCOUNTER 2022-06-21 12:17 | Emergency (ER) | payer OTHER ==
[2022-06-21 12:43] VITALS: RESP 18
[2022-06-21] MEDS ORDERED: SODIUM CHLORIDE 0.9% 1,000 ML IV STA ×2 (13:23→15:05)
[2022-06-21] MEDS ORDERED: diphenhydrAMINE 50 MG/ML 1 ML VIAL IVP STA (13:23)
[2022-06-21] MEDS ORDERED: MAG HYDROX/AL HYDROX/SIMETH 30 ML, HYOSCYAMINE ELIXIR 10 ML, LIDOCAINE VISCOUS 2% 10 ML PO STA ×3 (13:24)
[2022-06-21] MEDS ORDERED: PROCHLORPERAZINE INJ 10 MG/2 ML VIAL IVP STA (13:24)
--- NOTE | 2022-06-21 13:31 | ED ---
General Adult HPI - General Chief complaint: Nausea/Vomiting/Diarrhea Stated complaint: NVD,Dehydration,Sent by PCP Time Seen by Provider: 06/21/22 13:13 Source: patient, RN notes reviewed, old records reviewed Mode of arrival: ambulatory Limitations: no limitations - History of Present Illness Initial comments: Patient is a 36-year-old female with past medical history remarkable for migraine headaches, Chiari malformation status post craniectomy 2 years ago, fibromyalgia, hypertension, GERD who presents emergency Department complaining of persistent nausea and vomiting since 06/12/2022. Possible approximate weight loss of constipation. She states that symptoms have more or less been constant since then. Has been having some weakness as she has reduced by mouth intake over that period of time. Endorses an intermittent headache but is worse when she is actively vomiting. Endorses nausea, as well as nonbilious emesis. Denies chest pain. Does endorse upper respiratory symptoms including congestion, minimally productive cough. Denies any urinary complaints. States she is not . Denies diarrhea. Denies any known sick contacts initially, but states that following worse have similar complaints at home now. Presents for further evaluation this time. Did see her PCP who started her on Levaquin empirically, however she is not improving was instructed to come here for further evaluation. States her headache is not the worst headache of her life. Describes it as a generalized tightening, particularly in the back of her head as well as over her forehead. - Related Data Home Medications Medication Instructions Recorded Confirmed Aspirin EC [Ecotrin Low Dose] 81 mg PO DIRECTED 04/10/21 04/10/21 Citalopram Hydrobromide 10 mg PO DAILY 04/10/21 04/10/21 [Citalopram HBr] EPINEPHrine 0.15 mg IM ONCE PRN 04/10/21 04/10/21 cloNIDine HCL [Catapres] 0.1 mg PO HS 04/10/21 04/10/21 Previous Rx's Medication Instructions Recorded Atorvastatin [Lipitor] 20 mg PO HS #30 tab 04/14/21 Cholecalciferol [Vitamin D3 (25 25 mcg PO DAILY tablet 04/14/21 Mcg = 1000 Iu)] Levothyroxine Sodium [Synthroid] 25 mcg PO DAILY@0630 tab 04/14/21 Magnesium Oxide [Mag-Ox] 200 mg PO DAILY tab 04/14/21 Metoprolol Tartrate [Lopressor] 50 mg PO TID #90 tab 04/14/21 Pantoprazole [Protonix] 40 mg PO AC-BRKFST #30 tab 04/14/21 amLODIPine [Norvasc] 10 mg PO DAILY #30 tab 04/14/21 hydrALAZINE HCL [Apresoline] 25 mg PO BID #60 tab 04/14/21 hydroCHLOROthiazide [Hydrodiuril] 25 mg PO DAILY #30 tab 04/14/21 lisinopriL [Zestril] 10 mg PO DAILY #30 tab 04/14/21 Famotidine [Pepcid] 20 mg PO HS 7 Days #7 tablet 06/21/22 Mag Hydrox/Al Hydrox/Simeth 30 ml PO BID #300 ml 06/21/22 [Maalox] Ondansetron Odt [Zofran Odt] 4 mg PO Q8HR PRN 2 Days #6 tab 06/21/22 Allergies Allergy/AdvReac Type Severity Reaction Status Date / Time amoxicillin [Amoxicillin] Allergy RACING Verified 06/21/22 12:43 HEART latex Allergy Rash/Hives Verified 06/21/22 12:43 Penicillins Allergy RACING Verified 06/21/22 12:43 HEART shellfish derived [Shellfish] Allergy Anaphylaxis Verified 06/21/22 12:43 tree nut Allergy Anaphylaxis Verified 06/21/22 12:43 Review of Systems ROS Statement: Those systems with pertinent positive or pertinent negative responses have been documented in the HPI. Review of Systems: CONST: Denies fever EYES: Denies blurry vision ENT: Denies nasal congestion C/V: Denies Chest pain RESP: Denies shortness of breath GI: Endorses nausea and vomiting : Denies dysuria SKIN: Denies rash. MSK: Denies joint pain. NEURO: Endorses headache ROS Other: All systems not noted in ROS Statement are negative. Past Medical History Past Medical History: Fibromyalgia, GERD/Reflux, Hypertension, Thyroid Disorder Additional Past Medical History / Comment(s): Chiari malformation. Migrane headaches, iron deficiency anemia, chronic constipation, [place] R ear (had ear infections). PAST PHD INTERN HISTORY: She has no history of STDs. Menorrhagia improved with endometrial ablation. History of Any Multi-Drug Resistant Organisms: None Reported Past Surgical History: Breast Surgery, Section, Tubal Ligation, Uterine Ablation Additional Past Surgical History / Comment(s): Diagnostic lap exam with excision of L paratubal cyst, R breast benign lump, surgery for left ectopic . Endometrial ablation 05/12/2018. Past Anesthesia/Blood Transfusion Reactions: No Reported Reaction, Motion Sickness Past Psychological History: Anxiety Smoking Status: Never smoker Past Alcohol Use History: None Reported Past Drug Use History: None Reported - Past Family History Father History Unknown: Yes Family Medical History: Unable to Obtain Additional Family Medical History / Comment(s): Pt was raised in foster care. Mother History Unknown: Yes Family Medical History: Unable to Obtain Additional Family Medical History / Comment(s): Pt was raised in foster care. Maternal grandmother had esophageal cancer. General Exam - General Exam Comments Initial Comments: General: Appears in no acute distress. HEAD: Normal with no signs of head trauma. EYES: PERRLA, EOMI, conjunctiva normal, no discharge. Pupils 2 mm and equal bilaterally. ENT: Hearing grossly intact, normal oropharynx. Mildly dry mucous membranes. RESPIRATORY: Clear breath sounds bilaterally. No wheezes, rales, or rhonchi. C/V: Regular rate and rhythm. S1 and S2 auscultated, no edema, peripheral p ulses 2+ and intact throughout ABD: Abd is soft, nontender, nondistended EXT: Normal range of motion, no obvious deformity SKIN: No rashes or lesions observed on exposed skin. NEURO: Alert and oriented x 4. Cranial nerves II-XII intact. No focal sensory or strength deficits. Limitations: no limitations Course Vital Signs 06/21/22 12:38 Temperature 98.2 F Pulse Rate 97 Respiratory 18 Rate Blood Pressure 107/73 O2 Sat by Pulse 97 Oximetry Medical Decision Making - Medical Decision Making Based on the patient's presentation and physical exam, she presents complaining of nausea and vomiting for 2 weeks. No known etiology. Does have some upper respiratory symptoms as well with similar complaints and family members at home. I'm concerned for possible infectious etiology as well as dehydration for the patient. Differential includes but is not limited to viral infection, strep throat, UTI. We will obtain abdominal laboratory studies as well as viral swabs. With her history of Chiari malformation as well as the intermittent headache that she is obtaining, I will also obtain a CT brain in addition to chest and abdominal x-ray. She was in agreement this plan. She'll be symptomatic nature with a migraine cocktail, as well as IV fluids. She'll be reevaluated. She was in agreement this plan. Vital signs are within acceptable limits. Patient's chest x-ray as interpreted by myself reveals no evidence of acute cardio pulmonary process, infiltrate. Patient's KUB x-ray as interpreted by myself reveals no evidence of acute intra-abdominal process. Patient's CT of the head is interpreted by myself reveals no evidence of acute intracranial process, hemorrhage, mass effect. ALT does detect postsurgical changes from the prior Chiari malformation surgery. Patient's laboratory studies are suggestive of dehydration, with a mild hyponatremia of 132, hypochloremia of 93. Patient is slightly elevated creatinine of 1.27. LFTs and pancreatic enzymes are slightly elevated likely secondary to recurrent emesis. Patient is not . Urinalysis is a contaminated catch but does show 1+ ketones. Patient is flu positive. She is RSV, Covid, strep negative. On reevaluation following multiple fluid boluses, patient is feeling improved. I discussed results with her. It appears she is mildly dehydrated and has the flu which is likely what is causing her symptoms. She did tolerate oral intake, and therefore will be discharged home at this time. She was in agreement this plan. Strict return precautions were discussed. Vital signs remain within acceptable limits. I will provide the patient with a prescription for ODT Zofran, famotidine, Maalox. I instructed the patient to follow up with their PCP in the next 1-3 days. I explained that the patient should return to the emergency department if they experience any worsening symptoms. Strict return precautions were discussed with the patient. The patient expressed understanding of these instructions. I answered all questions that the patient had. The patient was discharged home in good condition with their prescriptions and follow up informa tion. - Lab Data Result diagrams: 06/21/22 13:46 06/21/22 13:46 Lab Results 06/21/22 06/21/22 06/21/22 Range/Units 13:46 13:46 13:46 WBC 7.8 (3.8-10.6) k/uL RBC 5.42 H (3.80-5.40) m/uL Hgb 16.6 H (11.4-16.0) gm/dL Hct 48.1 H (34.0-46.0) % MCV 88.8 (80.0-100.0) fL MCH 30.5 (25.0-35.0) pg MCHC 34.4 (31.0-37.0) g/dL RDW 12.1 (11.5-15.5) % Plt Count 205 (150-450) k/uL MPV 8.8 Neutrophils % 83 % Lymphocytes % 8 % Monocytes % 6 % Eosinophils % 0 % Basophils % 1 % Neutrophils # 6.5 (1.3-7.7) k/uL Lymphocytes # 0.6 L (1.0-4.8) k/uL Monocytes # 0.5 (0-1.0) k/uL Eosinophils # 0.0 (0-0.7) k/uL Basophils # 0.1 (0-0.2) k/uL PT 10.5 (9.0-12.0) sec INR 1.0 (<1.2) APTT 24.8 (22.0-30.0) sec Sodium (137-145) mmol/L Potassium (3.5-5.1) mmol/L Chloride (98-107) mmol/L Carbon Dioxide (22-30) mmol/L Anion Gap mmol/L BUN (7-17) mg/dL Creatinine (0.52-1.04) mg/dL Est GFR (CKD-EPI)AfAm (>60 ml/min/1.73 sqM) Est GFR (CKD-EPI)NonAf (>60 ml/min/1.73 sqM) Glucose (74-99) mg/dL Plasma Lactic Acid [place] (0.7-2.0) mmol/L Calcium (8.4-10.2) mg/dL Total Bilirubin (0.2-1.3) mg/dL AST (14-36) U/L ALT (4-34) U/L Alkaline Phosphatase (38-126) U/L Total Protein (6.3-8.2) g/dL Albumin (3.5-5.0) g/dL Amylase (30-110) U/L Lipase (23-300) U/L HCG, Qual Urine Color Yellow Urine Appearance Turbid H (Clear) Urine pH 5.0 (5.0-8.0) Ur Specific [place] 1.024 (1.001-1.035) Urine Protein 2+ H (Negative) Urine Glucose (UA) Negative (Negative) Urine Ketones 1+ H (Negative) Urine Blood Negative (Negative) Urine Nitrite Negative (Negative) Urine Bilirubin 1+ H (Negative) Urine Urobilinogen 3.0 (<2.0) mg/dL Ur Leukocyte Esterase Negative (Negative) Urine RBC 7 H (0-5) /hpf Urine WBC 2 (0-5) /hpf Ur Squamous Epith Cells 201 H (0-4) /hpf Urine Bacteria Occasional H (None) /hpf Urine Mucus Many H (None) /hpf Influenza Type A (PCR) (Not Detectd) Influenza Type B (PCR) (Not Detectd) RSV (PCR) (Not Detectd) SARS-CoV-2 (PCR) (Not Detectd) Group A Strep (PCR) (Not Detectd) 06/21/22 06/21/22 06/21/22 Range/Units 13:46 13:46 14:08 WBC (3.8-10.6) k/uL RBC (3.80-5.40) m/uL Hgb (11.4-16.0) gm/dL Hct (34.0-46.0) % MCV (80.0-100.0) fL MCH (25.0-35.0) pg MCHC (31.0-37.0) g/dL RDW (11.5-15.5) % Plt Count (150-450) k/uL MPV Neutrophils % % Lymphocytes % % Monocytes % % Eosinophils % % Basophils % % Neutrophils # (1.3-7.7) k/uL Lymphocytes # (1.0-4.8) k/uL Monocytes # (0-1.0) k/uL Eosinophils # (0-0.7) k/uL Basophils # (0-0.2) k/uL PT (9.0-12.0) sec INR (<1.2) APTT (22.0-30.0) sec Sodium 132 L (137-145) mmol/L Potassium 3.5 (3.5-5.1) mmol/L Chloride 93 L (98-107) mmol/L Carbon Dioxide 25 (22-30) mmol/L Anion Gap 14 mmol/L BUN 14 (7-17) mg/dL Creatinine 1.37 H (0.52-1.04) mg/dL Est GFR (CKD-EPI)AfAm 57 (>60 ml/min/1.73 sqM) Est GFR (CKD-EPI)NonAf 50 (>60 ml/min/1.73 sqM) Glucose 104 H (74-99) mg/dL Plasma Lactic Acid [place] 1.2 (0.7-2.0) mmol/L Calcium 8.7 (8.4-10.2) mg/dL Total Bilirubin 0.6 (0.2-1.3) mg/dL AST 38 H (14-36) U/L ALT 36 H (4-34) U/L Alkaline Phosphatase 103 (38-126) U/L Total Protein 8.0 (6.3-8.2) g/dL Albumin 4.8 (3.5-5.0) g/dL Amylase 158 H (30-110) U/L Lipase 327 H (23-300) U/L HCG, Qual Not Detected Urine Color Urine Appearance (Clear) Urine pH (5.0-8.0) Ur Specific [place] (1.001-1.035) Urine Protein (Negative) Urine Glucose (UA) (Negative) Urine Ketones (Negative) Urine Blood (Negative) Urine Nitrite (Negative) Urine Bilirubin (Negative) Urine Urobilinogen (<2.0) mg/dL Ur Leukocyte Esterase (Negative) Urine RBC (0-5) /hpf Urine WBC (0-5) /hpf Ur Squamous Epith Cells (0-4) /hpf Urine Bacteria (None) /hpf Urine Mucus (None) /hpf Influenza Type A (PCR) (Not Detectd) Influenza Type B (PCR) (Not Detectd) RSV (PCR) (Not Detectd) SARS-CoV-2 (PCR) (Not Detectd) Group A Strep (PCR) NOT DETECTED (Not Detectd) 06/21/22 Range/Units 14:08 WBC (3.8-10.6) k/uL RBC (3.80-5.40) m/uL Hgb (11.4-16.0) gm/dL Hct (34.0-46.0) % MCV (80.0-100.0) fL MCH (25.0-35.0) pg MCHC (31.0-37.0) g/dL RDW (11.5-15.5) % Plt Count (150-450) k/uL MPV Neutrophils % % Lymphocytes % % Monocytes % % Eosinophils % % Basophils % % Neutrophils # (1.3-7.7) k/uL Lymphocytes # (1.0-4.8) k/uL Monocytes # (0-1.0) k/uL Eosinophils # (0-0.7) k/uL Basophils # (0-0.2) k/uL PT (9.0-12.0) sec INR (<1.2) APTT (22.0-30.0) sec Sodium (137-145) mmol/L Potassium (3.5-5.1) mmol/L Chloride (98-107) mmol/L Carbon Dioxide (22-30) mmol/L Anion Gap mmol/L BUN (7-17) mg/dL Creatinine (0.52-1.04) mg/dL Est GFR (CKD-EPI)AfAm (>60 ml/min/1.73 sqM) Est GFR (CKD-EPI)NonAf (>60 ml/min/1.73 sqM) Glucose (74-99) mg/dL Plasma Lactic Acid [place] (0.7-2.0) mmol/L Calcium (8.4-10.2) mg/dL Total Bilirubin (0.2-1.3) mg/dL AST (14-36) U/L ALT (4-34) U/L Alkaline Phosphatase (38-126) U/L Total Protein (6.3-8.2) g/dL Albumin (3.5-5.0) g/dL Amylase (30-110) U/L Lipase (23-300) U/L HCG, Qual Urine Color Urine Appearance (Clear) Urine pH (5.0-8.0) Ur Specific [place] (1.001-1.035) Urine Protein (Negative) Urine Glucose (UA) (Negative) Urine Ketones (Negative) Urine Blood (Negative) Urine Nitrite (Negative) Urine Bilirubin (Negative) Urine Urobilinogen (<2.0) mg/dL Ur Leukocyte Esterase (Negative) Urine RBC (0-5) /hpf Urine WBC (0-5) /hpf Ur Squamous Epith Cells (0-4) /hpf Urine Bacteria (None) /hpf Urine Mucus (None) /hpf Influenza Type A (PCR) Detected A (Not Detectd) Influenza Type B (PCR) Not Detected (Not Detectd) RSV (PCR) Not Detected (Not Detectd) SARS-CoV-2 (PCR) Not Detected (Not Detectd) Group A Strep (PCR) (Not Detectd) Disposition Clinical Impression: Influenza A, Nausea and vomiting, Dehydration Disposition: HOME SELF-CARE Condition: Good Instructions (If sedation given, give patient instructions): Influenza (DC), Acute Nausea and Vomiting (ED) Prescriptions: Mag Hydrox/Al Hydrox/Simeth [Maalox] 30 ml PO BID #300 ml Famotidine [Pepcid] 20 mg PO HS 7 Days #7 tablet Ondansetron Odt [Zofran Odt] 4 mg PO Q8HR PRN 2 Days #6 tab PRN Reason: Nausea Is patient prescribed a controlled substance at d/c from ED?: No Referrals: Augustine Barajas MD [Primary Care Provider] - 1-2 days Time of Disposition: 16:00
[2022-06-21 14:14] LABS: Basophils # (A) 0.1 k/uL (0-0.2); Basophils % (A) 1 %; Eosinophils % (A) 0 %; HCT 48.1 % (34.0-46.0); HGB 16.6 gm/dL (11.4-16.0); Lymphocytes # (A) 0.6 k/uL (1.0-4.8); Lymphocytes % (A) 8 %; MCH 30.5 pg (25.0-35.0); MCHC 34.4 g/dL (31.0-37.0); MCV 88.8 fL (80.0-100.0); Mean Platelet Volume 8.8; Monocytes # (A) 0.5 k/uL (0-1.0); Monocytes % (A) 6 %; Neutrophils # (A) 6.5 k/uL (1.3-7.7); Neutrophils % (A) 83 %; Platelet Count 205 k/uL (150-450); RBC 5.42 m/uL (3.80-5.40); RDW 12.1 % (11.5-15.5); WBC 7.8 k/uL (3.8-10.6)
[2022-06-21 14:28] LABS: ALT 36 U/L (4-34); AST 38 U/L (14-36); African American GFR (CKD) 57 (>60 ml/min/1.73 sqM); Albumin 4.8 g/dL (3.5-5.0); Alkaline Phosphatase 103 U/L (38-126); Amylase 158 U/L (30-110); Anion Gap 14 mmol/L; Blood Urea Nitrogen 14 mg/dL (7-17); Calcium 8.7 mg/dL (8.4-10.2); Carbon Dioxide 25 mmol/L (22-30); Chloride 93 mmol/L (98-107); Glucose 104 mg/dL (74-99); Lipase 327 U/L (23-300); Non-African American GFR(CKD) 50 (>60 ml/min/1.73 sqM); Potassium 3.5 mmol/L (3.5-5.1); Sodium 132 mmol/L (137-145); Total Bilirubin 0.6 mg/dL (0.2-1.3)
[2022-06-21 14:29] LABS: HCG,Qualitative Serum Not Detected
[2022-06-21 14:32] LABS: Partial Thromboplastin Time 24.8 sec (22.0-30.0); Prothrombin Time 10.5 sec (9.0-12.0)
[2022-06-21 14:34] LABS: Appearance,Urine Turbid (Clear); Bacteria,Urine Occasional /hpf; Bilirubin,Urine 1+ (Negative); Blood,Urine Negative (Negative); Color,Urine Yellow; Glucose,Urine (UA) Negative (Negative); Ketones,Urine 1+ (Negative); Leukocyte Esterase,Urine Negative (Negative); Mucus,Urine Many /hpf; Nitrite,Urine Negative (Negative); Protein,Urine 2+ (Negative); RBC,Urine 7 /hpf (0-5); Specific Gravity,Urine 1.024 (1.001-1.035); Squamous Epithelial Cell,Urine 201 /hpf (0-4); WBC,Urine 2 /hpf (0-5)
--- NOTE | 2022-06-21 14:37 | CT ---
EXAMINATION TYPE: CT brain wo con DATE OF EXAM: 06/21/2022 COMPARISON: 04/11/2021 INDICATION: c/o headaches, nausea, vomiting. hx of chiari malformation. DLP: 1090.4 mGycm, Automated exposure control for dose reduction was used. CONTRAST: None CT of the brain is performed utilizing 3 mm thick sections through the posterior fossa and 3 mm thick sections through the remaining calvarium. Study is performed within 24 hours of arrival to the hosp ital. No abnormal hyperdensity is present to suggest an acute intracranial hemorrhage. No mass lesion is evident. No acute infarcts are evident. Ventricles and sulci are appropriate for the patient age. There is an air-fluid level within the right maxillary sinus. Correlate for acute sinusitis. Mucosal thickening is present diffusely through the ethmoid air cells. Remaining paranasal sinuses and mastoi d air cells are clear. There is been prior occiput craniotomy. No suspicious Chiari malformation is evident in the current e xam. IMPRESSIONS: 1. No acute intracranial process. 2. Postsurgical changes. No residual Chiari malformation is evident. 3. Clinical consideration for acute right maxillary sinusitis is recommended.
--- NOTE | 2022-06-21 14:40 | XR ---
EXAMINATION TYPE: XR chest 2V DATE OF EXAM: 06/21/2022 COMPARISON: Chest x-ray 4 days ago. HISTORY: Headache and pain. TECHNIQUE: Frontal and lateral views of the chest are obtained. FINDINGS: Overlying bra strap on current study. There is no focal air space opacity, pleural effusion , or pneumothorax seen. The cardiac silhouette size remains within normal limits. The osseous stru ctures are intact. IMPRESSION: No acute cardiopulmonary process. No significant change from prior.
--- NOTE | 2022-06-21 14:52 | XR ---
EXAMINATION TYPE: XR KUB DATE OF EXAM: 06/21/2022 2:29 PM CLINICAL HISTORY: Pain with nausea and vomiting TECHNIQUE: Single upright KUB image of the abdomen is obtained. COMPARISON: CT abdomen April 11, 2021. FINDINGS: Scattered gas is seen in non-distended small bowel loops. Gas and fecal material is seen in non-distended colon. There are 2 tubal ligation clips overlying the lower pelvis redemonstrated. Lef t-sided pelvic phleboliths noted. No free air. Osseous structures are intact. Entire pelvis not inclu ded. IMPRESSION: Overall nonobstructive bowel gas pattern redemonstrated.
[2022-06-21 16:30] VITALS: BP 135/85; PULSE 90; TEMP 97.7
== END 2022-06-21 16:30 | disposition home or self-care (01) ==
LOC: EC 12:17
DX: J10.1 Influenza due to other identified influenza virus with other respiratory manifestations (principal); R11.2 Nausea with vomiting, unspecified; E86.0 Dehydration; I10 Essential (primary) hypertension; F41.9 Anxiety disorder, unspecified; Z79.82 Long term (current) use of aspirin; Z88.0 Allergy status to penicillin; Z91.040 Latex allergy status; Z91.013 Allergy to seafood; Z91.018 Allergy to other foods; Z20.822 Contact with and (suspected) exposure to COVID-19
CPT/HCPCS: 99284; 96374; 96375; 96361 ×2; 36415; 87651; 80053; 82150; 83605; 83690; 85025; 85610; 85730; 81001; 84703; 87636; 71046; 74018; 70450; J1200; J0780

== ENCOUNTER → 2022-07-30 | Outpatient (CLI) | payer OTHER ==
[2022-07-30 16:14] LABS: African American GFR (CKD) 83.3 (60.0-200.0); Anion Gap 12.5 mmol/L (10.00-18.00); BUN/Creat Ratio 10.7 Ratio (12.00-20.00); Blood Urea Nitrogen 10.7 mg/dL (9.0-27.0); Calcium 9.5 mg/dL (8.7-10.3); Carbon Dioxide 23.5 mmol/L (20.0-27.5); Non-African American GFR(CKD) 71.9 (60.0-200.0); Potassium 4.1 mmol/L (3.5-5.5)
== END | disposition home or self-care (01) ==
LOC: LABWHC1 09:00
PROVIDERS: ATTEND Internal Medicine Cardiovascular Disease
DX: I10 Essential (primary) hypertension (principal)
CPT/HCPCS: 36415; 80048; 83880; 84443

== ENCOUNTER → 2022-10-09 | Outpatient (CLI) | payer OTHER | END | disposition home or self-care (01) | LOC: LABWHC1 09:36 | PROVIDERS: ATTEND Nurse Practitioner Family | DX: M13.0 Polyarthritis, unspecified (principal) | CPT/HCPCS: 36415; 85652; 86140 ==

== ENCOUNTER 2022-12-18 17:42 | Emergency (ER) | payer OTHER ==
[2022-12-18 18:12] VITALS: TEMP 98.5
[2022-12-18 19:13] LABS: ALT 104 U/L (4-34); AST 83 U/L (14-36); African American GFR (CKD) >90 (>60 ml/min/1.73 sqM); Alkaline Phosphatase 107 U/L (38-126); Anion Gap 16 mmol/L; Blood Urea Nitrogen 9 mg/dL (7-17); Calcium 10.3 mg/dL (8.4-10.2); Carbon Dioxide 23 mmol/L (22-30); Chloride 100 mmol/L (98-107); Glucose 91 mg/dL (74-99); Non-African American GFR(CKD) >90 (>60 ml/min/1.73 sqM); Potassium 3.6 mmol/L (3.5-5.1); Sodium 139 mmol/L (137-145); Total Bilirubin 0.5 mg/dL (0.2-1.3); Total Protein 8.7 g/dL (6.3-8.2)
[2022-12-18] MEDS ORDERED: DEXAMETHASONE SOD PHOSPHATE 10 MG/ML 1 ML VIAL IVP STA (19:15)
[2022-12-18] MEDS ORDERED: METOCLOPRAMIDE 5 MG/ML 2 ML VIAL IVP STA (19:15)
[2022-12-18] MEDS ORDERED: diphenhydrAMINE 50 MG/ML 1 ML VIAL IVP STA (19:15)
[2022-12-18] MEDS ORDERED: SODIUM CHLORIDE 0.9% 1,000 ML IV STA (19:15)
[2022-12-18] MEDS ORDERED: KETOROLAC 15 MG/ML 1 ML VIAL IVP STA (19:15)
[2022-12-18 19:16] LABS: Basophils # (A) 0.1 k/uL (0-0.2); Basophils % (A) 1 %; Eosinophils # (A) 0.2 k/uL (0-0.7); Eosinophils % (A) 2 %; HCT 50.7 % (34.0-46.0); HGB 17.3 gm/dL (11.4-16.0); Lymphocytes # (A) 2.9 k/uL (1.0-4.8); Lymphocytes % (A) 25 %; MCH 30.6 pg (25.0-35.0); MCHC 34.1 g/dL (31.0-37.0); MCV 89.7 fL (80.0-100.0); Monocytes # (A) 0.6 k/uL (0-1.0); Monocytes % (A) 5 %; Neutrophils # (A) 7.6 k/uL (1.3-7.7); Neutrophils % (A) 66 %; Platelet Count 288 k/uL (150-450); RBC 5.65 m/uL (3.80-5.40); RDW 12.4 % (11.5-15.5); WBC 11.4 k/uL (3.8-10.6)
[2022-12-18 19:18] LABS: Appearance,Urine Cloudy (Clear); Bacteria,Urine Rare /hpf; Bilirubin,Urine Negative (Negative); Blood,Urine Negative (Negative); Color,Urine Light Yellow; Glucose,Urine (UA) Negative (Negative); Ketones,Urine Negative (Negative); Leukocyte Esterase,Urine Negative (Negative); Mucus,Urine Rare /hpf; Nitrite,Urine Negative (Negative); Protein,Urine Negative (Negative); RBC,Urine 10 /hpf (0-5); Specific Gravity,Urine 1.009 (1.001-1.035); Squamous Epithelial Cell,Urine 3 /hpf (0-4); WBC,Urine 1 /hpf (0-5)
--- NOTE | 2022-12-18 21:08 | ED ---
Headache HPI - General Chief Complaint: Headache Stated Complaint: high blood pressure Time Seen by Provider: 12/18/22 19:07 Mode of arrival: ambulatory Limitations: no limitations - History of Present Illness Initial Comments: 37-year-old female presenting with chief complaint of headache. Patient has history of migraines and states that this feels consistent with her normal episodes. Patient is concerned because she noted elevated blood pressure at home after taking her medications. Patient called her PCPs office who advised her to report to the ER. She denies any head injury, loss of consciousness, numbness, tingling, weakness, chest pain, difficulty breathing, nausea, vomiting. - Related Data Home Medications Medication Instructions Recorded Confirmed Aspirin EC [Ecotrin Low Dose] 81 mg PO DIRECTED 04/10/21 04/10/21 Citalopram Hydrobromide 10 mg PO DAILY 04/10/21 04/10/21 [Citalopram HBr] EPINEPHrine 0.15 mg IM ONCE PRN 04/10/21 04/10/21 cloNIDine HCL [Catapres] 0.1 mg PO HS 04/10/21 04/10/21 Previous Rx's Medication Instructions Recorded Atorvastatin [Lipitor] 20 mg PO HS #30 tab 04/14/21 Cholecalciferol [Vitamin D3 (25 25 mcg PO DAILY tablet 04/14/21 Mcg = 1000 Iu)] Levothyroxine Sodium [Synthroid] 25 mcg PO DAILY@0630 tab 04/14/21 Magnesium Oxide [Mag-Ox] 200 mg PO DAILY tab 04/14/21 Metoprolol Tartrate [Lopressor] 50 mg PO TID #90 tab 04/14/21 Pantoprazole [Protonix] 40 mg PO AC-BRKFST #30 tab 04/14/21 amLODIPine [Norvasc] 10 mg PO DAILY #30 tab 04/14/21 hydrALAZINE HCL [Apresoline] 25 mg PO BID #60 tab 04/14/21 hydroCHLOROthiazide [Hydrodiuril] 25 mg PO DAILY #30 tab 04/14/21 lisinopriL [Zestril] 10 mg PO DAILY #30 tab 04/14/21 Famotidine [Pepcid] 20 mg PO HS 7 Days #7 tablet 06/21/22 Mag Hydrox/Al Hydrox/Simeth 30 ml PO BID #300 ml 06/21/22 [Maalox] Ondansetron Odt [Zofran Odt] 4 mg PO Q8HR PRN 2 Days #6 tab 06/21/22 Allergies Allergy/AdvReac Type Severity Reaction Status Date / Time amoxicillin [Amoxicillin] Allergy RACING Verified 06/21/22 12:43 HEART latex Allergy Rash/Hives Verified 06/21/22 12:43 Penicillins Allergy RACING Verified 06/21/22 12:43 HEART shellfish derived [Shellfish] Allergy Anaphylaxis Verified 06/21/22 12:43 tree nut Allergy Anaphylaxis Verified 06/21/22 12:43 Review of Systems ROS Statement: Those systems with pertinent positive or pertinent negative responses have been documented in the HPI. ROS Other: All systems not noted in ROS Statement are negative. Past Medical History Past Medical History: CVA/TIA, Fibromyalgia, GERD/Reflux, Hypertension, Thyroid Disorder Additional Past Medical History / Comment(s): Chiari malformation. Migrane headaches, iron deficiency anemia, chronic constipation, ATKA R ear (had ear infections). 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 Menorrhagia improved with endometrial ablation. History of Any Multi-Drug Resistant Organisms: None Reported Past Surgical History: Breast Surgery, Section, Tubal Ligation, Uterine Ablation Additional Past Surgical History / Comment(s): Diagnostic lap exam with excision of L paratubal cyst, R breast benign lump, surgery for left ectopic . Endometrial ablation 05/12/2018. Past Anesthesia/Blood Transfusion Reactions: No Reported Reaction, Motion Sickness Past Psychological History: Anxiety Smoking Status: Never smoker Past Alcohol Use History: None Reported Past Drug Use History: None Reported - Past Family History Father History Unknown: Yes Family Medical History: Unable to Obtain Additional Family Medical History / Comment(s): Pt was raised in foster care. Mother History Unknown: Yes Family Medical History: Unable to Obtain Additional Family Medical History / Comment(s): Pt was raised in foster care. Maternal grandmother had esophageal cancer. General Exam Limitations: no limitations General appearance: alert, in no apparent distress Head exam: Present: atraumatic, normocephalic, normal inspection Eye exam: Present: normal appearance, PERRL, EOMI. Absent: scleral icterus, conjunctival injection, periorbital swelling Neck exam: Present: normal inspection, full ROM Respiratory exam: Present: normal lung sounds bilaterally. Absent: respiratory distress, wheezes, rales, rhonchi, stridor Cardiovascular Exam: Present: regular rate, normal rhythm, normal heart sounds. Absent: systolic murmur, diastolic murmur, rubs, gallop, clicks Neurological exam: Present: alert, oriented X3, CN II-XII intact Expanded Patient oriented to: Present: person, place, time Speech: Present: fluid speech Cranial nerves: EOM's Intact: Normal Eye Response: (4) open spontaneously Motor Response: (6) obeys commands Verbal Response: (5) oriented [place] Total: 15 Psychiatric exam: Present: normal affect, normal mood Skin exam: Present: warm, dry, intact, normal color. Absent: rash Course Vital Signs 12/18/22 12/18/22 12/18/22 18:07 19:27 21:21 Temperature 98.5 F Pulse Rate 105 H 103 H 93 Respiratory 20 18 20 Rate Blood Pressure 176/115 174/125 153/105 O2 Sat by Pulse 97 98 97 Oximetry Medical Decision Making - Medical Decision Making Was pt. sent in by a medical professional or institution (Dr. PA, MEAL ROOM [employer], urgent care, hospital, or [place] health care facility...) When possible be specific @ -sent By PCP Did you speak to anyone other than the patient for history (EMS, parent, family, police, friend...)? What history was obtained from this source @ -No Did you review nursing and triage notes (agree or disagree)? Why? @ -I reviewed and agree with nursing and triage notes Were old charts reviewed (outside hosp., previous admission, EMS record, old EKG, old radiological studies, urgent care reports/EKG's, [place] health care facility records)? Report findings @ -No old charts were reviewed Differential Diagnosis (chest pain, altered mental status, abdominal pain women, abdominal pain men, vaginal bleeding, weakness, fever, dyspnea, syncope, headache, dizziness, GI bleed, back pain, seizure, CVA, palpatations, mental health, musculoskeletal)? @ -MDM Differential Headache: Migraine, tension, cluster, carbon monoxide, central venous thrombosis, pension karma temporal arteritis, acute closure glaucoma, intercranial hemorrhage, mastoiditis, sinusitis, head injury this is not meant to be an all-inclusive list. EKG interpreted by me (3pts min.). @ -As above X-rays interpreted by me (1pt min.). @ -None done CT interpreted by me (1pt min.). @ -None done U/S interpreted by me (1pt. min.). @ -None done What testing was considered but not performed or refused? (CT, X-rays, U/S, labs)? Why? @ -None What meds were considered but not given or refused? Why? @ -None Did you discuss the management of the patient with other professionals (professionals i.e. , PA, [employer], lab, RT, psych nurse, licensed master social worker, mannequin wig maker, teacher, environmental health officer, onsite case manager)? Give summary @ -No Was smoking cessation discussed for >3mins.? @ -No Was critical care preformed (if so, how long)? @ -No Were there social determinants of health that impacted care today? How? (Homelessness, low income, unemployed, alcoholism, drug addiction, transportation, low edu. Level, literacy, decrease access to med. care, [facility], rehab)? @ -No Was there de-escalation of care discussed even if they declined (Discuss DNR or withdrawal of care, Hospice)? DNR status @ -No What co-morbidities impacted this encounter? (DM, HTN, Smoking, COPD, CAD, Cancer, CVA, ARF, Chemo, Hep., AIDS, mental health diagnosis, sleep apnea, morbid obesity)? @ -None Was patient admitted / discharged? Hospital course, mention meds given and route, prescriptions, significant lab abnormalities, going to OR and other pertinent info. @ -37-year-old female presenting with chief complaint of headache. Patient was concerned she had elevated blood pressure home after taking her antihypertensives, called her PCPs office who advised her to report to the ER. Feels consistent with her regular migraines. Lab work is essentially unremarkable. Patient reports improvement in her symptoms after migraine cocktail. She would like to be discharged home. Blood pressure has improved. Follow-up with PCP. Report back to ER with any new or worsening symptoms. Discussed return parameters and answered all questions. Patient conveyed verbal understanding and agreed to the plan. I discussed this case in detail with my attending Dr. Rudolph Undiagnosed new problem with uncertain prognosis? @ -No Drug Therapy requiring intensive monitoring for toxicity (Heparin, Nitro, Insulin, Cardizem)? @ -No Were any procedures done? @ -No Diagnosis/symptom? @ -Headache Acute, or Chronic, or Acute on Chronic? @ -Acute Uncomplicated (without systemic symptoms) or Complicated (systemic symptoms)? @ -Uncomplicated Side effects of treatment? @ -No Exacerbation, Progression, or Severe Exacerbation? @ -No Poses a threat to life or bodily function? How? (Chest pain, USA, ND, pneumonia, PE, COPD, DKA, ARF, appy, cholecystitis, CVA, Diverticulitis, Homicidal, Suicidal, threat to staff... and all critical care pts) @ -No - Lab Data Result diagrams: 12/18/22 18:13 12/18/22 18:13 Lab Results 12/18/22 12/18/22 12/18/22 Range/Units 18:13 18:13 18:13 WBC 11.4 H (3.8-10.6) k/uL RBC 5.65 H (3.80-5.40) m/uL Hgb 17.3 H (11.4-16.0) gm/dL Hct 50.7 H (34.0-46.0) % MCV 89.7 (80.0-100.0) fL MCH 30.6 (25.0-35.0) pg MCHC 34.1 (31.0-37.0) g/dL RDW 12.4 (11.5-15.5) % Plt Count 288 (150-450) k/uL MPV 8.0 Neutrophils % 66 % Lymphocytes % 25 % Monocytes % 5 % Eosinophils % 2 % Basophils % 1 % Neutrophils # 7.6 (1.3-7.7) k/uL Lymphocytes # 2.9 (1.0-4.8) k/uL Monocytes # 0.6 (0-1.0) k/uL Eosinophils # 0.2 (0-0.7) k/uL Basophils # 0.1 (0-0.2) k/uL Sodium (137-145) mmol/L Potassium (3.5-5.1) mmol/L Chloride (98-107) mmol/L Carbon Dioxide (22-30) mmol/L Anion Gap mmol/L BUN (7-17) mg/dL Creatinine (0.52-1.04) mg/dL Est GFR (CKD-EPI)AfAm (>60 ml/min/1.73 sqM) Est GFR (CKD-EPI)NonAf (>60 ml/min/1.73 sqM) Glucose (74-99) mg/dL Calcium (8.4-10.2) mg/dL Total Bilirubin (0.2-1.3) mg/dL AST (14-36) U/L ALT (4-34) U/L Alkaline Phosphatase (38-126) U/L Total Protein (6.3-8.2) g/dL Albumin (3.5-5.0) g/dL Urine Color Light Yellow Urine Appearance Cloudy H (Clear) Urine pH 7.0 (5.0-8.0) Ur Specific [place] 1.009 (1.001-1.035) Urine Protein Negative (Negative) Urine Glucose (UA) Negative (Negative) Urine Ketones Negative (Negative) Urine Blood Negative (Negative) Urine Nitrite Negative (Negative) Urine Bilirubin Negative (Negative) Urine Urobilinogen 2.0 (<2.0) mg/dL Ur Leukocyte Esterase Negative (Negative) Urine RBC 10 H (0-5) /hpf Urine WBC 1 (0-5) /hpf Ur Squamous Epith Cells 3 (0-4) /hpf Urine Bacteria Rare H (None) /hpf Urine Mucus Rare H (None) /hpf Urine HCG, Qual Not Detected (Not Detectd) 12/18/22 Range/Units 18:13 WBC (3.8-10.6) k/uL RBC (3.80-5.40) m/uL Hgb (11.4-16.0) gm/dL Hct (34.0-46.0) % MCV (80.0-100.0) fL MCH (25.0-35.0) pg MCHC (31.0-37.0) g/dL RDW (11.5-15.5) % Plt Count (150-450) k/uL MPV Neutrophils % % Lymphocytes % % Monocytes % % Eosinophils % % Basophils % % Neutrophils # (1.3-7.7) k/uL Lymphocytes # (1.0-4.8) k/uL Monocytes # (0-1.0) k/uL Eosinophils # (0-0.7) k/uL Basophils # (0-0.2) k/uL Sodium 139 (137-145) mmol/L Potassium 3.6 (3.5-5.1) mmol/L Chloride 100 (98-107) mmol/L Carbon Dioxide 23 (22-30) mmol/L Anion Gap 16 mmol/L BUN 9 (7-17) mg/dL Creatinine 0.63 (0.52-1.04) mg/dL Est GFR (CKD-EPI)AfAm >90 (>60 ml/min/1.73 sqM) Est GFR (CKD-EPI)NonAf >90 (>60 ml/min/1.73 sqM) Glucose 91 (74-99) mg/dL Calcium 10.3 H (8.4-10.2) mg/dL Total Bilirubin 0.5 (0.2-1.3) mg/dL AST 83 H (14-36) U/L ALT 104 H (4-34) U/L Alkaline Phosphatase 107 (38-126) U/L Total Protein 8.7 H (6.3-8.2) g/dL Albumin 5.0 (3.5-5.0) g/dL Urine Color Urine Appearance (Clear) Urine pH (5.0-8.0) Ur Specific [place] (1.001-1.035) Urine Protein (Negative) Urine Glucose (UA) (Negative) Urine Ketones (Negative) Urine Blood (Negative) Urine Nitrite (Negative) Urine Bilirubin (Negative) Urine Urobilinogen (<2.0) mg/dL Ur Leukocyte Esterase (Negative) Urine RBC (0-5) /hpf Urine WBC (0-5) /hpf Ur Squamous Epith Cells (0-4) /hpf Urine Bacteria (None) /hpf Urine Mucus (None) /hpf Urine HCG, Qual (Not Detectd) Disposition Clinical Impression: Headache Disposition: HOME SELF-CARE Condition: Good Instructions (If sedation given, give patient instructions): Acute Headache (ED) Additional Instructions: Follow-up with PCP. Report back to ER with any new or worsening symptoms. Take Motrin and Tylenol for pain control. Is patient prescribed a controlled substance at d/c from ED?: No Referrals: Augustine Barajas MD [Primary Care Provider] - 1-2 days Time of Disposition: 21:08
[2022-12-18 21:22] VITALS: BP 153/105; PULSE 93; RESP 20
== END 2022-12-18 21:34 | disposition home or self-care (01) ==
LOC: EC 17:42
DX: R51.9 Headache, unspecified (principal); I10 Essential (primary) hypertension; F41.9 Anxiety disorder, unspecified; Z79.82 Long term (current) use of aspirin; Z79.899 Other long term (current) drug therapy; Z88.0 Allergy status to penicillin; Z91.018 Allergy to other foods; Z91.013 Allergy to seafood; Z91.040 Latex allergy status; Z86.73 Personal history of transient ischemic attack (TIA), and cerebral infarction without residual deficits
CPT/HCPCS: 36415; 80053; 85025; 81001; 81025; 99284; 96374; 96375 ×3; 96361; J1200; J1100; J2765; J1885

== ENCOUNTER → 2022-12-30 | Outpatient (CLI) | payer OTHER ==
[2022-12-30 12:03] LABS: Ionized Calcium 4.9 mg/dL (4.5-5.3)
[2022-12-30 12:11] LABS: ALT 74 U/L (4-34); AST 57 U/L (14-36); Albumin 4.5 g/dL (3.5-5.0); Albumin/Globulin Ratio 1.4; Alkaline Phosphatase 105 U/L (38-126); Bilirubin,Unconjugated 0.3 mg/dL (0.0-1.1); C Reactive Protein 3.2 mg/dL (<1.0); Calcium 9.4 mg/dL (8.4-10.2); Creatine Kinase 46 U/L (30-135); Globulin 3.2 g/dL; Magnesium 2.2 mg/dL (1.6-2.3); Phosphorus 3.5 mg/dL (2.5-4.5); Total Bilirubin 0.7 mg/dL (0.2-1.3); Total Protein 7.7 g/dL (6.3-8.2)
[2022-12-30 12:23] LABS: T4, Free (Free Thyroxine) 1.33 ng/dL (0.78-2.19)
[2022-12-30 16:46] LABS: Albumin 4.6 d/dL (3.8-4.9); Protein, Total 7.6 d/dL (6.2-8.2)
[2022-12-30 17:17] LABS: Thyroid Peroxidase Antibodies <9.0 U/mL (0.0-33.0)
[2022-12-30 18:02] LABS: Hepatitis A Antibody IgM Nonreactive; Hepatitis B Core IgM Nonreactive; Hepatitis B Surface Antigen Nonreactive; Hepatitis C IgG Antibody Nonreactive
[2022-12-30 18:22] LABS: Anti-DNA, DS unit <1.0 IU/mL; DNA Double-Stranded Negative (Negative)
[2022-12-30 21:00] LABS: Rheumatoid Factor, Qnt <15 IU/mL (0-15)
[2022-12-30 23:18] LABS: Cyclic Citrull Pep IgG Unit <1.5 U/mL (<=3.9); Cyclic Citrullinated Pep IgG Negative
[2022-12-31 11:11] LABS: Smooth Muscle Antibody 3 UNITS (<20)
[2022-12-31 12:12] LABS: C-ANCA <1:20 Titer (<1:20)
[2022-12-31 18:26] LABS: Gamma Globulin 0.99 d/dL (0.70-1.50)
== END | disposition home or self-care (01) ==
LOC: LABWHC1 10:32
PROVIDERS: ATTEND Internal Medicine
DX: C90.00 Multiple myeloma not having achieved remission (principal); I10 Essential (primary) hypertension; E78.5 Hyperlipidemia, unspecified; E05.90 Thyrotoxicosis, unspecified without thyrotoxic crisis or storm; E83.52 Hypercalcemia; K76.0 Fatty (change of) liver, not elsewhere classified; M81.0 Age-related osteoporosis without current pathological fracture; M05.9 Rheumatoid arthritis with rheumatoid factor, unspecified; M35.9 Systemic involvement of connective tissue, unspecified; E83.119 Hemochromatosis, unspecified; E87.0 Hyperosmolality and hypernatremia
CPT/HCPCS: 36415; 80074; 80076; 81256; 82310; 82330; 82550; 83516; 83735; 84100; 84165; 84439; 84443; 85652; 86038; 86140; 86200; 86225; 86255; 86334; 86335; 86376; 86431; 86800

== ENCOUNTER → 2023-01-29 | Outpatient (CLI) | payer OTHER ==
--- NOTE | 2023-01-29 09:50 | US ---
EXAMINATION TYPE: US liver DATE OF EXAM: 01/29/2023 COMPARISON: NONE CLINICAL INDICATION: Female, 37 years old with history of R94.5 ABNORMAL RESULTS OF LIVER FUNCTION ST UDIES; abnormal lft's TECHNIQUE: Multiple sonographic images of the right upper quadrant are obtained. FINDINGS: EXAM MEASUREMENTS: Liver Length: 18.1 cm Gallbladder Wall: 0.1 cm CBD: 0.2 cm Right Kidney: 10.9x3.3x4.8 cm Pancreas: Tail obscured by overlying bowel gas Liver: enlarged, echogenic , no masses or cystic structures. Gallbladder: wnl Evidence for sonographic Galdamez's sign: No CBD: wnl Right Kidney: wnl IMPRESSION: Hepatic steatosis with no suspicious mass.
== END | disposition home or self-care (01) ==
LOC: RADUSWWP 08:56
PROVIDERS: ATTEND Internal Medicine
DX: K76.0 Fatty (change of) liver, not elsewhere classified (principal); R94.5 Abnormal results of liver function studies
CPT/HCPCS: 76705

== ENCOUNTER → 2023-05-05 | Outpatient (CLI) | payer OTHER ==
--- NOTE | 2023-05-05 13:18 | XR ---
EXAMINATION TYPE: XR abdomen 1V DATE OF EXAM: 05/05/2023 COMPARISON: NONE HISTORY: Pain TECHNIQUE: One view abdominal series FINDINGS: The osseous structures are intact. The bowel gas pattern is nonspecific. Lung bases are clear. Post surgical change involving the pelvis. Hypertrophic arthropathy. There is vascular calcifications in t he pelvis. Retained fecal debris throughout the colon. IMPRESSION: 1. Nonspecific abdomen. Correlate for constipation.
--- NOTE | 2023-05-05 13:20 | XR ---
EXAMINATION TYPE: XR pelvis AP view DATE OF EXAM: 05/05/2023 COMPARISON: NONE HISTORY: Pain The osseous structures are intact and the joint spaces are preserved. No acute fracture is seen. Vi sualized bowel gas pattern is nonspecific with retained fecal debris throughout the visualized colon. Mild postsurgical changes are seen. Calcifications in the pelvis appear vascular. Mild to moderate hypertrophic arthropathy of the hips. IMPRESSION: 1. [id number] bilateral hip arthropathy..
[2023-05-05 22:26] LABS: Amylase 96 U/L (23-121); HCG,Quantitative Serum <3.0 mIU/mL (0.0-6.0); Lipase 50 U/L (14-63)
== END | disposition home or self-care (01) ==
LOC: LABWHC1 12:12
PROVIDERS: ATTEND Internal Medicine
DX: R10.9 Unspecified abdominal pain (principal); R19.5 Other fecal abnormalities; R10.32 Left lower quadrant pain; M12.9 Arthropathy, unspecified
CPT/HCPCS: 36415; 72170; 74018; 82150; 83690; 84702

== ENCOUNTER 2023-05-27 16:05 | Inpatient (IN) | payer MEDICAID, OTHER ==
--- NOTE | 2023-05-27 16:31 | ED ---
Psych HPI - General Source: patient, RN notes reviewed Mode of arrival: ambulatory <Marissa Livingston - Last Filed: 05/27/23 16:28> - General Source: patient, RN notes reviewed Limitations: no limitations <Filiberto Justin - Last Filed: 05/27/23 20:52> - General Chief Complaint: Psychiatric Symptoms Stated Complaint: mental health Time Seen by Provider: 05/27/23 16:29 - History of Present Illness Initial Comments: Patient is a 37-year-old female presented ER with chief complaint of suicidal ideations. Patient states that her daughter has not been in the car she would have tried to do something today. Patient is currently on antidepressant. (Marissa Livingston) Patient is a pleasant 37-year-old female presenting to the emergency department with concerns with depression. Patient does have history of long-standing depression. Patient did have suicidal thoughts today. Patient did not act on it because her daughter was present. Patient does have significant stress at home. Patient is a single mother with 4 children, 2 of them are special needs. Patient does have chronic physical problems with walking from previous neck and spine surgery. No hallucinations. No alcohol or street drug use. No new physical problems. (Filiberto Justin) - Related Data Home Medications Medication Instructions Recorded Confirmed Aspirin EC [Ecotrin Low Dose] 81 mg PO DIRECTED 04/10/21 04/10/21 Citalopram Hydrobromide 10 mg PO DAILY 04/10/21 04/10/21 [Citalopram HBr] EPINEPHrine 0.15 mg IM ONCE PRN 04/10/21 04/10/21 cloNIDine HCL [Catapres] 0.1 mg PO HS 04/10/21 04/10/21 Previous Rx's Medication Instructions Recorded Atorvastatin [Lipitor] 20 mg PO HS #30 tab 04/14/21 Cholecalciferol [Vitamin D3 (25 25 mcg PO DAILY tablet 04/14/21 Mcg = 1000 Iu)] Levothyroxine Sodium [Synthroid] 25 mcg PO DAILY@0630 tab 04/14/21 Magnesium Oxide [Mag-Ox] 200 mg PO DAILY tab 04/14/21 Metoprolol Tartrate [Lopressor] 50 mg PO TID #90 tab 04/14/21 Pantoprazole [Protonix] 40 mg PO AC-BRKFST #30 tab 04/14/21 amLODIPine [Norvasc] 10 mg PO DAILY #30 tab 04/14/21 hydrALAZINE HCL [Apresoline] 25 mg PO BID #60 tab 04/14/21 hydroCHLOROthiazide [Hydrodiuril] 25 mg PO DAILY #30 tab 04/14/21 lisinopriL [Zestril] 10 mg PO DAILY #30 tab 04/14/21 Famotidine [Pepcid] 20 mg PO HS 7 Days #7 tablet 06/21/22 Mag Hydrox/Al Hydrox/Simeth 30 ml PO BID #300 ml 06/21/22 [Maalox] Ondansetron Odt [Zofran Odt] 4 mg PO Q8HR PRN 2 Days #6 tab 06/21/22 Allergies Allergy/AdvReac Type Severity Reaction Status Date / Time amoxicillin [Amoxicillin] Allergy RACING Verified 06/21/22 12:43 HEART gluten Allergy Nausea & Verified 05/27/23 16:26 Vomiting latex Allergy Rash/Hives Verified 06/21/22 12:43 Penicillins Allergy RACING Verified 06/21/22 12:43 HEART shellfish derived [Shellfish] Allergy Anaphylaxis Verified 06/21/22 12:43 tree nut Allergy Anaphylaxis Verified 06/21/22 12:43 Review of Systems ROS Other: All systems not noted in ROS Statement are negative. <Marissa Livingston - Last Filed: 05/27/23 16:28> ROS Other: All systems not noted in ROS Statement are negative. Constitutional: Denies: fever Eyes: Denies: eye pain ENT: Denies: ear pain Respiratory: Denies: cough Cardiovascular: Denies: chest pain Endocrine: Denies: fatigue Psychiatric: Reports: anxiety, depression, suicidal thoughts. Denies: auditory hallucinations, visual hallucinations, homicidal thoughts <Filiberto Justin - Last Filed: 05/27/23 20:52> ROS Statement: Those systems with pertinent positive or pertinent negative responses have been documented in the HPI. Past Medical History Past Medical History: CVA/TIA, Fibromyalgia, GERD/Reflux, Hypertension, Thyroid Disorder Additional Past Medical History / Comment(s): Chiari malformation. Migrane headaches, iron deficiency anemia, chronic constipation, [place] R ear (had ear infections). 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 Menorrhagia improved with endometrial ablation. History of Any Multi-Drug Resistant Organisms: None Reported Past Surgical History: Breast Surgery, Section, Tubal Ligation, Uterine Ablation Additional Past Surgical History / Comment(s): Diagnostic lap exam with excision of L paratubal cyst, R breast benign lump, surgery for left ectopic . Endometrial ablation 05/12/2018. Past Anesthesia/Blood Transfusion Reactions: No Reported Reaction, Motion Sickness Past Psychological History: Anxiety Smoking Status: Never smoker Past Alcohol Use History: None Reported Past Drug Use History: None Reported - Past Family History Father History Unknown: Yes Family Medical History: Unable to Obtain Additional Family Medical History / Comment(s): Pt was raised in foster care. Mother History Unknown: Yes Family Medical History: Unable to Obtain Additional Family Medical History / Comment(s): Pt was raised in foster care. Maternal grandmother had esophageal cancer. <Marissa Livingston - Last Filed: 05/27/23 16:28> General Exam Limitations: no limitations <Marissa Livingston - Last Filed: 05/27/23 16:28> Limitations: no limitations General appearance: alert, in no apparent distress Head exam: Present: normocephalic Eye exam: Present: normal appearance Neck exam: Present: normal inspection Respiratory exam: Present: normal lung sounds bilaterally Cardiovascular Exam: Present: regular rate, normal rhythm GI/Abdominal exam: Present: soft. Absent: tenderness Extremities exam: Present: normal inspection Neurological exam: Present: alert Psychiatric exam: Present: depressed Skin exam: Present: normal color <Filiberto Justin - Last Filed: 05/27/23 20:52> - General Exam Comments Initial Comments: Visual Physical Exam Vital signs reviewed General: Well-appearing, nontoxic, no acute distress. Head: Normocephalic, atraumatic Eyes: PERRLA, EOMI ENT: Airway patent Chest: Nonlabored breathing Skin: No visual rash, normal skin tone Neuro: Alert and oriented 3 Musculoskeletal: No gross abnormalities (Marissa Livingston) Course Vital Signs 05/27/23 16:23 Temperature 98.5 F Pulse Rate 81 Respiratory 20 Rate Blood Pressure 200/120 O2 Sat by Pulse 99 Oximetry Medical Decision Making <Marissa Livingston - Last Filed: 05/27/23 16:28> <Filiberto Justin - Last Filed: 05/27/23 20:52> - Medical Decision Making I performed the quick note portion of the exam. Electronically signed by Marissa Livingston PA-C (Marissa Livingston) Was pt. sent in by a medical professional or institution ([facility], [facility], urgent care, hospital, or [facility]...) When possible be specific @ -No Did you speak to anyone other than the patient for history (EMS, parent, family, police, friend...)? What history was obtained from this source @ -No Did you review nursing and triage notes (agree or disagree)? Why? @ -I reviewed and agree with nursing and triage notes Were old charts reviewed (outside hosp., previous admission, EMS record, old EKG, old radiological studies, urgent care reports/EKG's, [facility] records)? Report findings @ -No old charts were reviewed Differential Diagnosis (chest pain, altered mental status, abdominal pain women, abdominal pain men, vaginal bleeding, weakness, fever, dyspnea, syncope, headache, dizziness, GI bleed, back pain, seizure, CVA, palpatations, mental health, musculoskeletal)? @ -Differential Mental Health Depression, anxiety, bipolar, psychosis, schizophrenia, borderline personality, situational depression, adjustment disorder, behavioral disorder, brain tumor, malingering, substance abuse, encephalopathy, medication reaction, dementia, hypothyroidism, degenerative neurologic disorder, lupus.... This is not meant to be all-inclusive list EKG interpreted by me (3pts min.). @ -As above X-rays interpreted by me (1pt min.). @ -None done CT interpreted by me (1pt min.). @ -None done U/S interpreted by me (1pt. min.). @ -None done What testing was considered but not performed or refused? (CT, X-rays, U/S, labs)? Why? @ -None What meds were considered but not given or refused? Why? @ -None Did you discuss the management of the patient with other professionals (professionals i.e. [facility], [facility], lab, RT, psych nurse, psychologist social, sewer hand, teacher, animal control officer, special education case manager)? Give summary @ -Case was discussed with psychiatric nurse Lucille who did speak a psychiatrist with plans for psychiatric admission Was smoking cessation discussed for >3mins.? @ -No Was critical care preformed (if so, how long)? @ -No Were there social determinants of health that impacted care today? How? (Homelessness, low income, unemployed, alcoholism, drug addiction, transportation, low edu. Level, literacy, decrease access to med. care, f[facility], rehab)? @ -No Was there de-escalation of care discussed even if they declined (Discuss DNR or withdrawal of care, Hospice)? DNR status @ -No What co-morbidities impacted this encounter? (DM, HTN, Smoking, COPD, CAD, Cancer, CVA, ARF, Chemo, Hep., AIDS, mental health diagnosis, sleep apnea, morbid obesity)? @ -None Was patient admitted / discharged? Hospital course, mention meds given and route, prescriptions, significant lab abnormalities, going to OR and other pertinent info. @ -Patient will be admitted for psychiatric care Undiagnosed new problem with uncertain prognosis? @ -No Drug Therapy requiring intensive monitoring for toxicity (Heparin, Nitro, Insulin, Cardizem)? @ -No Were any procedures done? @ -No Diagnosis/symptom? @ -Depression with suicidal ideation Acute, or Chronic, or Acute on Chronic? @ -Acute Uncomplicated (without systemic symptoms) or Complicated (systemic symptoms)? @ -default Side effects of treatment? @ -No Exacerbation, Progression, or Severe Exacerbation? @ -No Poses a threat to life or bodily function? How? (Chest pain, [place], [place], pneumonia, PE, COPD, DKA, ARF, appy, cholecystitis, CVA, Diverticulitis, Homicidal, Suicidal, threat to staff... and all critical care pts) @ -No (Filiberto Justin) Disposition <Marissa Livingston - Last Filed: 05/27/23 16:28> Is patient prescribed a controlled substance at d/c from ED?: No Time of Disposition: 20:52 <Filiberto Justin - Last Filed: 05/27/23 20:52> Clinical Impression: Depression, Suicidal ideation Disposition: TRANSFER TO PSYCH HOSP/UNIT Referrals: Augustine Barajas MD [Primary Care Provider] - 1-2 days
[2023-05-27 22:56] LABS: Amphetamine Screen,Urine Not Detected (NotDetected); Barbiturate Screen,Urine Not Detected (NotDetected); Benzodiazepines Screen,Urine Not Detected (NotDetected); Cocaine Screen,Urine Not Detected (NotDetected); Methadone Screen, Urine Not Detected (NotDetected); Opiate Screen,Urine Not Detected (NotDetected); Oxycodone Screen, Urine Not Detected (NotDetected); Phencyclidine Screen,Urine Not Detected (NotDetected); Tricyclic Antidepressant,Urine Not Detected (NotDetected); Urn Cannabinoid Scrn Detected (NotDetected)
[2023-05-28] MEDS ORDERED: hydrALAZINE HCL 50 MG TAB PO PRN ×2 (00:14→04:08)
[2023-05-28] MEDS ORDERED: BACLOFEN 10 MG TAB PO SCH (00:15)
[2023-05-28] MEDS ORDERED: ATORVASTATIN 20 MG TAB PO SCH (00:15)
[2023-05-28] MEDS ORDERED: lisinopriL 20 MG TAB PO SCH (00:15)
[2023-05-28] MEDS ORDERED: amLODIPine 10 MG TAB PO SCH (00:15)
[2023-05-28] MEDS ORDERED: IBUPROFEN 600 MG TAB PO PRN (04:17)
[2023-05-28] MEDS ORDERED: MAGNESIUM HYDROXIDE 2,400 MG/30 ML CUP PO PRN (04:17)
[2023-05-28] MEDS ORDERED: ACETAMINOPHEN TAB 325 MG TAB PO PRN (04:17)
[2023-05-28] MEDS ORDERED: MAG HYDROX/AL HYDROX/SIMETH 30 ML CUP PO PRN (04:17)
[2023-05-28] MEDS ORDERED: LORazepam 1 MG TAB PO PRN (04:17)
[2023-05-28] MEDS ORDERED: HALOPERIDOL LACTATE 5 MG/ML 1 ML VIAL IM PRN (04:17)
[2023-05-28] MEDS ORDERED: haloperidoL 5 MG TAB PO PRN (04:25)
[2023-05-28] MEDS ORDERED: LORazepam 2 MG/ML INJ IM PRN (04:25)
[2023-05-28] MEDS ORDERED: LEVOTHYROXINE 25 MCG TAB PO SCH (06:30)
[2023-05-28] MEDS ORDERED: ALBUTEROL INHALER 60 PUFF/8 GM INHALER (MHU) INHALATION PRN (08:00)
[2023-05-28] MEDS: hydroCHLOROthiazide 25 MG TAB PO SCH (08:58)
[2023-05-28] MEDS: ASPIRIN 81 MG PO SCH (08:59)
[2023-05-28] MEDS: PANTOPRAZOLE 40 MG TABLET PO SCH (08:59)
[2023-05-28] MEDS: FAMOTIDINE 20 MG TAB PO SCH (08:59)
[2023-05-28] MEDS: LEVOTHYROXINE 25 MCG TAB PO SCH (09:00)
[2023-05-28] MEDS ORDERED: ASPIRIN 81 MG PO SCH (09:00)
[2023-05-28] MEDS ORDERED: hydroCHLOROthiazide 25 MG TAB PO SCH (09:00)
[2023-05-28] MEDS ORDERED: SUMAtriptan succinate 50 MG TAB PO PRN (09:00)
[2023-05-28] MEDS: POTASSIUM CHLORIDE ER 10 MEQ TAB.ER.PRT PO SCH (09:20)
[2023-05-28] MEDS: polyethylene glycoL 3350 17 GM POWD.PACK PO SCH ×2 (09:20→20:53)
[2023-05-28] MEDS: VITAMIN E (DL,TOCOPHERYL ACET) 400 UNIT (180 MG) CAP PO SCH (09:20)
[2023-05-28] MEDS: CALCIUM CARBONATE 500 MG CHEWABLE PO SCH (09:20)
[2023-05-28] MEDS: ASCORBIC ACID 500 MG TAB PO SCH (10:21)
[2023-05-28] MEDS: CHOLECALCIFEROL 25 MCG (1000 IU) TABLET PO SCH (10:22)
[2023-05-28] MEDS: CYANOCOBALAMIN 500 MCG TAB PO SCH (10:22)
[2023-05-28] MEDS: FLUTICASONE 50MCG/SPRAY NASAL 16GM EA NOSTRIL SCH ×2 (10:23→20:44)
[2023-05-28] MEDS: MELOXICAM 7.5 MG TAB PO SCH (10:43)
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
[2023-05-28] MEDS: atenoloL 25 MG TAB PO SCH (13:31)
[2023-05-28] MEDS: SERTRALINE 50 MG TAB PO SCH (13:32)
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
[2023-05-28 14:09] LABS: Basophils # (A) 0.1 k/uL (0-0.2); Basophils % (A) 1 %; Eosinophils # (A) 0.3 k/uL (0-0.7); Eosinophils % (A) 3 %; HCT 52.4 % (34.0-46.0); HGB 17.7 gm/dL (11.4-16.0); Lymphocytes % (A) 19 %; MCH 31.2 pg (25.0-35.0); MCHC 33.8 g/dL (31.0-37.0); MCV 92.4 fL (80.0-100.0); Monocytes # (A) 0.4 k/uL (0-1.0); Monocytes % (A) 4 %; Neutrophils % (A) 73 %; Platelet Count 321 k/uL (150-450); RBC 5.67 m/uL (3.80-5.40); RDW 12.5 % (11.5-15.5); WBC 10.9 k/uL (3.8-10.6)
[2023-05-28 14:25] LABS: ALT 45 U/L (4-34); AST 39 U/L (14-36); African American GFR (CKD) >90 (>60 ml/min/1.73 sqM); Albumin 4.8 g/dL (3.5-5.0); Alkaline Phosphatase 90 U/L (38-126); Anion Gap 18 mmol/L; Blood Urea Nitrogen 5 mg/dL (7-17); Calcium 10.2 mg/dL (8.4-10.2); Carbon Dioxide 19 mmol/L (22-30); Chloride 101 mmol/L (98-107); Glucose 145 mg/dL (74-99); Non-African American GFR(CKD) >90 (>60 ml/min/1.73 sqM); Potassium 4.2 mmol/L (3.5-5.1); Sodium 138 mmol/L (137-145); Total Bilirubin 0.5 mg/dL (0.2-1.3); Total Protein 8.4 g/dL (6.3-8.2)
[2023-05-28] MEDS: BACLOFEN 10 MG TAB PO SCH (20:51)
[2023-05-28] MEDS: ATORVASTATIN 20 MG TAB PO SCH (20:51)
[2023-05-28] MEDS: lisinopriL 20 MG TAB PO SCH (20:52)
[2023-05-28] MEDS: amLODIPine 10 MG TAB PO SCH (20:52)
[2023-05-28] MEDS ORDERED: FAMOTIDINE 20 MG TAB PO SCH (21:00)
[2023-05-28 21:07] LABS: Chol/HDL Ratio 4.35 Ratio; LDL Cholesterol,Calculated 145.3 mg/dL (0.0-131.0)
[2023-05-28] MEDS: traZODone HCL 50 MG TAB PO SCH (21:21)
[2023-05-29] MEDS: LEVOTHYROXINE 25 MCG TAB PO SCH (08:55)
[2023-05-29] MEDS: ASPIRIN 81 MG PO SCH (08:55)
[2023-05-29] MEDS: ASCORBIC ACID 500 MG TAB PO SCH (08:55)
[2023-05-29] MEDS: CYANOCOBALAMIN 500 MCG TAB PO SCH (08:56)
[2023-05-29] MEDS: atenoloL 25 MG TAB PO SCH (08:56)
[2023-05-29] MEDS: CHOLECALCIFEROL 25 MCG (1000 IU) TABLET PO SCH (08:56)
[2023-05-29] MEDS: FAMOTIDINE 20 MG TAB PO SCH (08:56)
[2023-05-29] MEDS: CALCIUM CARBONATE 500 MG CHEWABLE PO SCH (08:56)
[2023-05-29] MEDS: MELOXICAM 7.5 MG TAB PO SCH (08:57)
[2023-05-29] MEDS: hydroCHLOROthiazide 25 MG TAB PO SCH (08:57)
[2023-05-29] MEDS: POTASSIUM CHLORIDE ER 10 MEQ TAB.ER.PRT PO SCH (08:58)
[2023-05-29] MEDS: lisinopriL 20 MG TAB PO SCH ×2 (08:58→20:41)
[2023-05-29] MEDS: polyethylene glycoL 3350 17 GM POWD.PACK PO SCH ×3 (08:58→20:57)
[2023-05-29] MEDS: PANTOPRAZOLE 40 MG TABLET PO SCH (09:00)
[2023-05-29] MEDS: SERTRALINE 50 MG TAB PO SCH (09:01)
[2023-05-29] MEDS: FLUTICASONE 50MCG/SPRAY NASAL 16GM EA NOSTRIL SCH (09:06)
[2023-05-29] MEDS: VITAMIN E (DL,TOCOPHERYL ACET) 400 UNIT (180 MG) CAP PO SCH (09:07)
--- NOTE | 2023-05-29 11:00 | P.PN ---
Progress Note - Text Progress Note Date: 05/29/23 Interval History: [facility] and was directable and agreeable to speak with personal lines underwriter in the office. Reports sleep was good, that her mood is mildly improving. claims her anxiety is improving mildly aswell. Appetite is great, and patient is going to groups, and says that she enjoys them. At this time patient denies any suicidal or homical ideations, intent or plan. Patient denies any auditory, visual hallucinations and denies any paranoia or delusions. Patient denies any side effects from the medications and has been compliant with meds. Patient focused on discharge. Mental Status Exam: General Appearance: Patient appears to be stated age, long hair, glasses, is alert, using a wheelchair, dressed in hospital gown. Directable, and attempts to cooperate. Patient appears to have good hygiene and grooming. Behavior: Patient is calmly seated without any agitated behavior. Speech: Patient's speech is fluent and nonpressured. Mood/Affect: Mood is improving mildly, affect is congruent and appropriate. mildly improving. Suicidality/Homicidality: Patient denies having any suicidal or homicidal ideation intent or plan. Perceptions: Patient denies any visual hallucinations and denies any auditory hallucinations Though content/process: There is no evidence of any delusional thought content and thought process is linear and goal-directed. Memory and concentration: AOX3, grossly intact for the purposes of this session Judgment and insight: Improving mildly Assessment Major depressive disorder without psychotic features Anxiety disorder, rule out PTSD Cannabis disorder, mild Plan: -Patient continues to meet criteria for inpatient psychiatric admission for symptom stabilization and safety. Patient has signed adult voluntary form and medication consent and is placed in patient's chart. -Medications: Zoloft 50mg daily for mood/anxiety Trazadone 25mg qhs for sleep, will monitor for side effects. -When necessary Ativan and Haldol for agitation/aggression. -NRT -patient does not smoke -SW on board for discharge planning. Encouraged the patient to participate in milieu. Likely to discharge next week back home, if patient continues to improve.
[2023-05-29] MEDS ORDERED: MAGNESIUM HYDROXIDE 2,400 MG/30 ML CUP PO PRN (12:47)
[2023-05-29] MEDS ORDERED: BUTALB/APAP/CAFF 50-325-40MG TAB PO PRN (12:47)
[2023-05-29] MEDS: ATORVASTATIN 20 MG TAB PO SCH (20:40)
[2023-05-29] MEDS: BACLOFEN 10 MG TAB PO SCH (20:40)
[2023-05-29] MEDS: amLODIPine 10 MG TAB PO SCH (20:40)
[2023-05-29] MEDS: traZODone HCL 50 MG TAB PO SCH (22:01)
[2023-05-30] MEDS: LEVOTHYROXINE 25 MCG TAB PO SCH (06:45)
[2023-05-30] MEDS: atenoloL 25 MG TAB PO SCH (07:59)
[2023-05-30] MEDS: CALCIUM CARBONATE 500 MG CHEWABLE PO SCH (07:59)
[2023-05-30] MEDS: POTASSIUM CHLORIDE ER 10 MEQ TAB.ER.PRT PO SCH (08:00)
[2023-05-30] MEDS: polyethylene glycoL 3350 17 GM POWD.PACK PO SCH ×2 (08:00→19:45)
[2023-05-30] MEDS: VITAMIN E (DL,TOCOPHERYL ACET) 400 UNIT (180 MG) CAP PO SCH (08:00)
[2023-05-30] MEDS: CYANOCOBALAMIN 500 MCG TAB PO SCH (08:01)
[2023-05-30] MEDS: FAMOTIDINE 20 MG TAB PO SCH (08:02)
[2023-05-30] MEDS: SERTRALINE 50 MG TAB PO SCH (08:02)
[2023-05-30] MEDS: ASCORBIC ACID 500 MG TAB PO SCH (08:02)
[2023-05-30] MEDS: CHOLECALCIFEROL 25 MCG (1000 IU) TABLET PO SCH (08:02)
[2023-05-30] MEDS: ASPIRIN 81 MG PO SCH (08:02)
[2023-05-30] MEDS: lisinopriL 20 MG TAB PO SCH ×2 (08:03→19:44)
[2023-05-30] MEDS: hydroCHLOROthiazide 25 MG TAB PO SCH (08:03)
[2023-05-30] MEDS: MELOXICAM 7.5 MG TAB PO SCH (08:03)
[2023-05-30] MEDS: FLUTICASONE 50MCG/SPRAY NASAL 16GM EA NOSTRIL SCH (08:06)
[2023-05-30] MEDS: PANTOPRAZOLE 40 MG TABLET PO SCH (08:06)
--- NOTE | 2023-05-30 11:05 | P.PN ---
Progress Note - Text Progress Note Date: 05/30/23 Interval History: Patient was seen in the hallway and was directable and agreeable to speak with commercial real estate underwriter in the office. Reports sleep was good, that her mood is "pretty good" claims her anxiety is improving as well. Appetite is good, and patient is going to groups, and enjoying them. Claims that she spoke with her daughters and is missing them. At this time patient denies any suicidal or homical ideations, intent or plan. Patient denies any auditory, visual hallucinations and denies any paranoia or delusions. Patient denies any side effects from the medications and has been compliant with meds. Patient continues to be focused on discharge. Mental Status Exam: General Appearance: Patient appears to be stated age, long hair, glasses, is alert, using a wheelchair, dressed in hospital gown. Directable, and attempts to cooperate. Patient appears to have good hygiene and grooming. Behavior: Patient is calmly seated without any agitated behavior. More cooperative today. Speech: Patient's speech is fluent and nonpressured. Mood/Affect: Mood is improving , affect is congruent and appropriate. mildly improving. Suicidality/Homicidality: Patient denies having any suicidal or homicidal ideation intent or plan. Perceptions: Patient denies any visual hallucinations and denies any auditory hallucinations Though content/process: There is no evidence of any delusional thought content and thought process is linear and goal-directed. Memory and concentration: AOX3, grossly intact for the purposes of this session Judgment and insight: Improving mildly Assessment Major depressive disorder without psychotic features Anxiety disorder, rule out PTSD Cannabis disorder, mild Plan: -Patient continues to meet criteria for inpatient psychiatric admission for symptom stabilization and safety. Patient has signed adult voluntary form and medication consent and is placed in patient's chart. -Medications: Zoloft 50mg daily for mood/anxiety Increase Trazadone 50mg qhs for sleep, will monitor for side effects. -When necessary Ativan and Haldol for agitation/aggression. -NRT -patient does not smoke -SW on board for discharge planning. Encouraged the patient to participate in milieu. Likely to discharge friday, if patient continues to improve.
--- NOTE | 2023-05-30 15:42 | P.PN ---
Subjective Progress Note Date: 05/30/23 (Major depressive disorder, suicidal ideation.) Progress note Date of service 05/30/[address] Barajas Patient seen [id number] psychiatry. Patient appeared to be following with the protocol of the psych floor and she is feeling much better with the adjustment made by Dr. lopez the psychiatrist. . To be energetic and stated that she will be going home on Friday after the medication adjustment by the psychiatrist. After reviewing the laboratories Line her total cholesterol 213 LDL 145.3, HDL 49 with the underlying hyper lipidemia Patient had also found that her AST 39, a LT 45 which is both mildly elevated. Her white count 10.9, her RBCs 5.67, hemoglobin 17.7, hematocrit 52.4 all above normal range with the suspicious of genetic hemochromatosis ordered was given. Chemistry: Sodium 138 potassium 4.2 chloride 101, carbon dioxide 19 mildly below the normal level BUN 5, creatinine 0.69 and a GFR 90% Hemoglobin A1c 5.6 and average blood sugar 114. Negative Corvette testing Her urine analysis on admission was positive for marijuana On exam today: Temperature 97.2, heart rate 77, blood pressure 128/85 mean blood pressure 99, oxygen saturation 97% on room air. Patient's conscious alert oriented 3, no headache no migraine headache no confusion or disorientation feeling much better and no suicidal ideation Her medication for the psychiatry has been adjusted and the psychiatrist will plan to see [facility] who has been denied her in the past. Oropharynx natural teeth Neck was supple no JVD no thyromegaly no lymphadenopathy trachea midline. Chest was clear to auscultation percussion no wheezes no rhonchi's Heart was regular sinus rhythm no evidence of tachycardia after we placed her back on her medication with a controlled blood pressure at this time Abdomen is soft positive bowel sounds no tenderness Extremities no edema positive pulses Assessment: #1 her father has hemochromatosis affected his liver and kidney and suspicious with increase hemoglobin and hematocrit #2 underlying iron overload with a mild elevation of liver enzyme #3 fatty liver considered as well. #4 history of migraine headache not present at this time #5 major depressive disorder #6 suicidal ideation has been resolved. #7 hypertension resistant currently controlled. #8 history of insomnia resulted patient stated that she had very good sleep with the current medicine. Plan: Discussed with the patient she will be on atorvastatin or that Already ordered the hemochromatosis testing and iron study for overload. We'll continue current medication Discussed with the patient that she will be calling the office Friday for discharge and make an appointment to be seen after discharge from the psych floor. On the weekend if she had any problem advised nursing staff to call me. Is and of dictation Objective - Vital Signs Vital signs: Vital Signs Temp 97.2 F L 05/30/23 06:22 Pulse 77 05/30/23 08:13 Resp 13 05/30/23 06:22 BP 128/85 05/30/23 08:13 Pulse Ox 97 05/28/23 06:00 FiO2 - Labs CBC & Chem 7: 05/28/23 13:40 05/28/23 13:40
[2023-05-30] MEDS: amLODIPine 10 MG TAB PO SCH (19:44)
[2023-05-30] MEDS: BACLOFEN 10 MG TAB PO SCH (19:44)
[2023-05-30] MEDS: ATORVASTATIN 20 MG TAB PO SCH (19:44)
[2023-05-30] MEDS: traZODone HCL 50 MG TAB PO SCH (20:43)
[2023-05-31] MEDS: LEVOTHYROXINE 25 MCG TAB PO SCH (06:41)
[2023-05-31] MEDS: ASCORBIC ACID 500 MG TAB PO SCH (08:50)
[2023-05-31] MEDS: CHOLECALCIFEROL 25 MCG (1000 IU) TABLET PO SCH (08:52)
[2023-05-31] MEDS: ASPIRIN 81 MG PO SCH (08:52)
[2023-05-31] MEDS: CYANOCOBALAMIN 500 MCG TAB PO SCH (08:52)
[2023-05-31] MEDS: CALCIUM CARBONATE 500 MG CHEWABLE PO SCH (08:52)
[2023-05-31] MEDS: atenoloL 25 MG TAB PO SCH (08:52)
[2023-05-31] MEDS: hydroCHLOROthiazide 25 MG TAB PO SCH (08:53)
[2023-05-31] MEDS: FLUTICASONE 50MCG/SPRAY NASAL 16GM EA NOSTRIL SCH (08:53)
[2023-05-31] MEDS: FAMOTIDINE 20 MG TAB PO SCH (08:53)
[2023-05-31] MEDS: MELOXICAM 7.5 MG TAB PO SCH (08:54)
[2023-05-31] MEDS: lisinopriL 20 MG TAB PO SCH ×2 (08:54→20:31)
[2023-05-31] MEDS: PANTOPRAZOLE 40 MG TABLET PO SCH (08:55)
[2023-05-31] MEDS: polyethylene glycoL 3350 17 GM POWD.PACK PO SCH ×2 (08:55→20:34)
[2023-05-31] MEDS: POTASSIUM CHLORIDE ER 10 MEQ TAB.ER.PRT PO SCH (08:55)
[2023-05-31] MEDS: SERTRALINE 50 MG TAB PO SCH (08:55)
[2023-05-31] MEDS: VITAMIN E (DL,TOCOPHERYL ACET) 400 UNIT (180 MG) CAP PO SCH (08:55)
--- NOTE | 2023-05-31 10:40 | P.PN ---
Progress Note - Text Progress Note Date: 05/31/23 Interval History: Patient was seen in the hallway and was directable and agreeable to speak with film writer in the office. Reports sleep was good, that her mood is "pretty good" claims her anxiety is improving as well. She states that she is feeling more positive today about her situation. Continues to focus on discharge. Claims that she slept better last night with the trazodone. Appetite is good, and patient is going to groups. Claims that she spoke with her daughters over the phone and is missing them. At this time patient denies any suicidal or homical ideations, intent or plan. Patient denies any auditory, visual hallucinations and denies any paranoia or delusions. Patient denies any side effects from the medications and has been compliant with meds. Patient continues to be focused on discharge. Mental Status Exam: General Appearance: Patient appears to be stated age, long hair, glasses, is alert, using a wheelchair, dressed in hospital gown. Directable, and attempts to cooperate. Patient appears to have good hygiene and grooming. Behavior: Patient is calmly seated without any agitated behavior. More cooperative today. Speech: Patient's speech is fluent and nonpressured. Mood/Affect: Mood is improving , affect is congruent and appropriate. mildly improving. Suicidality/Homicidality: Patient denies having any suicidal or homicidal ideation intent or plan. Perceptions: Patient denies any visual hallucinations and denies any auditory hallucinations Though content/process: There is no evidence of any delusional thought content and thought process is linear and goal-directed. Memory and concentration: AOX3, grossly intact for the purposes of this session Judgment and insight: Improving mildly Assessment Major depressive disorder without psychotic features Anxiety disorder, rule out PTSD Cannabis disorder, mild Plan: -Patient continues to meet criteria for inpatient psychiatric admission for symptom stabilization and safety. Patient has signed adult voluntary form and medication consent and is placed in patient's chart. -Medications: Zoloft 50mg daily for mood/anxiety, Trazadone 50mg qhs for sleep, will monitor for side effects. -When necessary Ativan and Haldol for agitation/aggression. -NRT -patient does not smoke -SW on board for discharge planning. Encouraged the patient to participate in milieu. Likely to discharge friday, if patient continues to improve.
[2023-05-31] MEDS: ATORVASTATIN 20 MG TAB PO SCH (20:31)
[2023-05-31] MEDS: BACLOFEN 10 MG TAB PO SCH (20:31)
[2023-05-31] MEDS: amLODIPine 10 MG TAB PO SCH (20:31)
[2023-05-31] MEDS: traZODone HCL 50 MG TAB PO SCH (21:30)
[2023-05-31 23:15] LABS: % Iron Saturation 37.91 (12.00-45.00)
[2023-06-01] MEDS: LEVOTHYROXINE 25 MCG TAB PO SCH (06:57)
[2023-06-01] MEDS: ASCORBIC ACID 500 MG TAB PO SCH (09:08)
[2023-06-01] MEDS: POTASSIUM CHLORIDE ER 10 MEQ TAB.ER.PRT PO SCH (09:09)
[2023-06-01] MEDS: CYANOCOBALAMIN 500 MCG TAB PO SCH (09:09)
[2023-06-01] MEDS: PANTOPRAZOLE 40 MG TABLET PO SCH (09:09)
[2023-06-01] MEDS: atenoloL 25 MG TAB PO SCH (09:09)
[2023-06-01] MEDS: ASPIRIN 81 MG PO SCH (09:09)
[2023-06-01] MEDS: polyethylene glycoL 3350 17 GM POWD.PACK PO SCH ×2 (09:09→20:38)
[2023-06-01] MEDS: CALCIUM CARBONATE 500 MG CHEWABLE PO SCH (09:09)
[2023-06-01] MEDS: CHOLECALCIFEROL 25 MCG (1000 IU) TABLET PO SCH (09:09)
[2023-06-01] MEDS: VITAMIN E (DL,TOCOPHERYL ACET) 400 UNIT (180 MG) CAP PO SCH (09:10)
[2023-06-01] MEDS: SERTRALINE 50 MG TAB PO SCH (09:10)
[2023-06-01] MEDS: hydroCHLOROthiazide 25 MG TAB PO SCH (09:13)
[2023-06-01] MEDS: FAMOTIDINE 20 MG TAB PO SCH (09:13)
[2023-06-01] MEDS: FLUTICASONE 50MCG/SPRAY NASAL 16GM EA NOSTRIL SCH (09:13)
[2023-06-01] MEDS: MELOXICAM 7.5 MG TAB PO SCH (09:13)
[2023-06-01] MEDS: lisinopriL 20 MG TAB PO SCH ×2 (09:13→20:36)
--- NOTE | 2023-06-01 11:06 | P.PN ---
Progress Note - Text Progress Note Date: 06/01/23 Interval History: Patient was seen in the hallway and was directable and agreeable to speak with chief writer in the office. states that her mood and anxiety are much better today. She appears to be more talkative today. Claims that she is watching [employer] marathon. She states that she is feeling more positive today about her situation. Continues to focus on discharge, things that she drove here to the hospital and her cars in the parking lot. Claims that she slept better last night with the trazodone. Appetite is good, and patient is going to groups. At this time patient denies any suicidal or homical ideations, intent or plan. Patient denies any auditory, visual hallucinations and denies any paranoia or delusions. Patient denies any side effects from the medications and has been compliant with meds. Patient continues to be focused on discharge. Mental Status Exam: General Appearance: Patient appears to be stated age, long hair, glasses, is alert, using a wheelchair, dressed in hospital gown. Directable, and attempts to cooperate. Patient appears to have good hygiene and grooming. Behavior: Patient is calmly seated without any agitated behavior. More cooperative today. Speech: Patient's speech is fluent and nonpressured. Mood/Affect: Mood is improving , affect is congruent and appropriate. mildly improving. Suicidality/Homicidality: Patient denies having any suicidal or homicidal ideation intent or plan. Perceptions: Patient denies any visual hallucinations and denies any auditory hallucinations Though content/process: There is no evidence of any delusional thought content and thought process is linear and goal-directed. More future oriented Memory and concentration: AOX3, grossly intact for the purposes of this session Judgment and insight: Improving mildly Assessment: Major depressive disorder without psychotic features Anxiety disorder, rule out PTSD Cannabis disorder, mild Plan: -Patient continues to meet criteria for inpatient psychiatric admission for symptom stabilization and safety. Patient has signed adult voluntary form and medication consent and is placed in patient's chart. -Medications: Zoloft 50mg daily for mood/anxiety, Trazadone 50mg qhs for sleep, will monitor for side effects. -When necessary Ativan and Haldol for agitation/aggression. -NRT -patient does not smoke -SW on board for discharge planning. Encouraged the patient to participate in milieu. Likely to discharge tomorrow, if patient continues to improve.
[2023-06-01] MEDS: ATORVASTATIN 20 MG TAB PO SCH (20:36)
[2023-06-01] MEDS: BACLOFEN 10 MG TAB PO SCH (20:36)
[2023-06-01] MEDS: amLODIPine 10 MG TAB PO SCH (20:36)
[2023-06-01 21:02] VITALS: RESP 16
[2023-06-01] MEDS: traZODone HCL 50 MG TAB PO SCH (21:41)
[2023-06-02] MEDS: LEVOTHYROXINE 25 MCG TAB PO SCH (06:23)
[2023-06-02] MEDS: polyethylene glycoL 3350 17 GM POWD.PACK PO SCH (08:49)
[2023-06-02] MEDS: FLUTICASONE 50MCG/SPRAY NASAL 16GM EA NOSTRIL SCH (08:50)
[2023-06-02] MEDS: SERTRALINE 50 MG TAB PO SCH (08:51)
[2023-06-02] MEDS: CHOLECALCIFEROL 25 MCG (1000 IU) TABLET PO SCH (08:51)
[2023-06-02] MEDS: lisinopriL 20 MG TAB PO SCH (08:51)
[2023-06-02] MEDS: ASPIRIN 81 MG PO SCH (08:51)
[2023-06-02] MEDS: FAMOTIDINE 20 MG TAB PO SCH (08:51)
[2023-06-02] MEDS: hydroCHLOROthiazide 25 MG TAB PO SCH (08:52)
[2023-06-02] MEDS: atenoloL 25 MG TAB PO SCH (08:52)
[2023-06-02] MEDS: CALCIUM CARBONATE 500 MG CHEWABLE PO SCH (08:52)
[2023-06-02] MEDS: POTASSIUM CHLORIDE ER 10 MEQ TAB.ER.PRT PO SCH (08:52)
[2023-06-02] MEDS: ASCORBIC ACID 500 MG TAB PO SCH (08:52)
[2023-06-02] MEDS: CYANOCOBALAMIN 500 MCG TAB PO SCH (08:52)
[2023-06-02] MEDS: VITAMIN E (DL,TOCOPHERYL ACET) 400 UNIT (180 MG) CAP PO SCH (08:52)
[2023-06-02] MEDS: MELOXICAM 7.5 MG TAB PO SCH (08:53)
[2023-06-02] MEDS: PANTOPRAZOLE 40 MG TABLET PO SCH (08:53)
[2023-06-02 09:27] VITALS: BP 121/77; PULSE 82; TEMP 97.5
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
[2023-06-06] MEDS ORDERED: ERENUMAB AOOE 140 MG SQ SCH (09:00)
[2023-06-06] MEDS ORDERED: NON FORMULARY DRUG (Erenumab-Aooe [Aimovig Autoinjector] 140 MG/ML Auto.Injct) SQ SCH (09:00)
== END 2023-06-02 12:20 | disposition home or self-care (01) | DRG 754 ==
LOC: EC 16:05 → 3MHU 05-28 03:54
PROVIDERS: ADMIT Psychiatry & Neurology Psychiatry; ATTEND Psychiatry & Neurology Psychiatry
DX: F32.9 Major depressive disorder, single episode, unspecified (principal); R45.851 Suicidal ideations; F12.10 Cannabis abuse, uncomplicated; D50.9 Iron deficiency anemia, unspecified; E07.9 Disorder of thyroid, unspecified; F41.1 Generalized anxiety disorder; Z11.52 Encounter for screening for COVID-19; M79.7 Fibromyalgia; K21.9 Gastro-esophageal reflux disease without esophagitis; I10 Essential (primary) hypertension; I1A.0 Resistant hypertension; E78.5 Hyperlipidemia, unspecified; G47.00 Insomnia, unspecified; G43.909 Migraine, unspecified, not intractable, without status migrainosus; K59.09 Other constipation; Z79.1 Long term (current) use of non-steroidal anti-inflammatories (NSAID); Z79.82 Long term (current) use of aspirin; Z79.890 Hormone replacement therapy; Z79.899 Other long term (current) drug therapy; Z91.51 Personal history of suicidal behavior; Z86.73 Personal history of transient ischemic attack (TIA), and cerebral infarction without residual deficits; Z56.0 Unemployment, unspecified; Z59.6 Low income; Z91.040 Latex allergy status; Z88.0 Allergy status to penicillin
CPT/HCPCS: 80053; 80061; 80306; 83036; 83540; 83550; 84443; 85025; 87635; 99285

== ENCOUNTER → 2023-07-10 | Outpatient (CLI) | payer OTHER ==
[2023-07-10 16:16] LABS: BUN/Creat Ratio 13.44 Ratio (12.00-20.00); Blood Urea Nitrogen 12.1 mg/dL (9.0-27.0); Calcium 9.6 mg/dL (8.7-10.3); Carbon Dioxide 21.9 mmol/L (21.6-31.8); Chloride 102 mmol/L (96-109); Glucose 127 mg/dL (70-110); Potassium 4.6 mmol/L (3.5-5.5); Sodium 138 mmol/L (135-145)
[2023-07-10 19:10] LABS: Appearance,Urine Cloudy (Clear); Bilirubin,Urine Negative (Negative); Blood,Urine Negative (Negative); Color,Urine Yellow (Yellow); Ketones,Urine Trace (Negative); Nitrite,Urine Negative (Negative); PH, Urine 5.5; Specific Gravity,Urine 1.016 (1.001-1.030)
[2023-07-10 21:10] LABS: Bacteria,Urine Trace
== END | disposition home or self-care (01) ==
LOC: LABWHC1 10:52
PROVIDERS: ATTEND Nurse Practitioner Acute Care
DX: I1A.0 Resistant hypertension (principal)
CPT/HCPCS: 36415; 80048; 81001; 82088; 84244; 87086

== ENCOUNTER → 2023-10-15 | Outpatient (CLI) | payer OTHER ==
--- NOTE | 2023-10-15 18:28 | CT ---
EXAMINATION TYPE: CT abdomen w con DATE OF EXAM: 10/15/2023 COMPARISON: 04/11/2021 INDICATION: ADRENAL ABN LABS, R/O RENAL MASS DLP: 488.7 mGycm, Automated exposure control for dose reduction was used. CONTRAST: 100 mL of Isovue 300. Study performed with Oral Contrast TECHNIQUE: Axial images were obtained from above the diaphragm to the pubic rami in the axial plane a t 5 mm thick sections. Reconstructed images are reviewed on the computer in the coronal plane. FINDINGS: Limited CT sections are obtained the lung bases. The lung bases are clear. CT ABDOMEN: Liver: Normal Spleen: Normal Pancreas: Normal Adrenal glands: The adrenal glands are normal. Gallbladder: Normal Kidneys: No masses are evident. No hydronephrosis is present. No cysts are present. There is a 0.2 cm calcification at the inferior pole right kidney. A mid posterior punctate right renal stone is no t excluded. Post contrast imaging through the kidneys is normal Aorta: Normal Inferior vena cava: Normal. Loops of bowel within the abdomen and pelvis are normal. There are some loops of bowel lacking or al contrast or incompletely distended limiting their evaluation. Appendix: Visualized portion of the appendix is Normal. IMPRESSION: 1. No suspicious renal or adrenal masses. 2. Nonobstructing right renal stones.
== END | disposition home or self-care (01) ==
LOC: RADCTMAIN 12:58
PROVIDERS: ATTEND Internal Medicine
DX: N20.0 Calculus of kidney (principal); I10 Essential (primary) hypertension
CPT/HCPCS: 74160; Q9967

== ENCOUNTER → 2023-12-04 | Outpatient (CLI) | payer OTHER ==
[2023-12-04 13:42] LABS: Creatinine,Urine Random 201.5 mg/dL
[2023-12-04 18:07] LABS: HCT 45.6 % (37.2-46.3); HGB 14.8 g/dL (12.0-15.0); MCH 30.4 pg (27.0-32.0); MCHC 32.5 g/dL (32.0-37.0); MCV 93.6 FL (80.0-97.0); Mean Platelet Volume 10.4 FL (9.5-12.2); NRBC Per 100 WBC 0 X 10*3/uL (0.00-0.01); Platelet Count 313 X 10*3/uL (140-440); RBC 4.87 X 10*6/uL (4.10-5.20); RDW 12.1 % (11.5-14.5); WBC 8.92 X 10*3/uL (4.50-10.00)
[2023-12-04 20:58] LABS: Blood Urea Nitrogen 11.2 mg/dL (9.0-27.0); Calcium 9.8 mg/dL (8.7-10.3); Carbon Dioxide 27.2 mmol/L (21.6-31.8); Chloride 99 mmol/L (96-109); Glucose 98 mg/dL (70-110); Magnesium 1.9 mg/dL (1.5-2.4); Potassium 3.6 mmol/L (3.5-5.5); Sodium 138 mmol/L (135-145)
[2023-12-04 21:17] LABS: Appearance,Urine Cloudy (Clear); Bilirubin,Urine Negative (Negative); Blood,Urine Negative (Negative); Color,Urine Yellow (Yellow); Ketones,Urine Trace (Negative); Nitrite,Urine Negative (Negative); Specific Gravity,Urine 1.022 (1.001-1.030)
[2023-12-04 21:28] LABS: Bacteria,Urine 2+ (None Seen)
[2023-12-04 23:30] LABS: Microalbumin Creatinine Ratio <6 mg/g Cr (0-30)
== END | disposition home or self-care (01) ==
LOC: LABWHC1 11:55
PROVIDERS: ATTEND Internal Medicine Nephrology
DX: N17.9 Acute kidney failure, unspecified (principal)
CPT/HCPCS: 36415; 80048; 81001; 82043; 82570; 83735; 84100; 84156; 85027

== ENCOUNTER → 2024-02-03 | Outpatient (CLI) | payer OTHER ==
[2024-02-03 15:59] LABS: Basophils # (A) 0.02 X 10*3/uL (0.00-0.10); Basophils % (A) 0.2 %; Eosinophils # (A) 0.34 X 10*3/uL (0.04-0.35); Eosinophils % (A) 3.7 %; HCT 46.1 % (37.2-46.3); HGB 15.4 g/dL (12.0-15.0); Lymphocytes # (A) 2.12 X 10*3/uL (0.90-5.00); Lymphocytes % (A) 23.3 %; MCH 30.4 pg (27.0-32.0); MCHC 33.4 g/dL (32.0-37.0); MCV 90.9 FL (80.0-97.0); Mean Platelet Volume 10.9 FL (9.5-12.2); Monocytes # (A) 0.41 X 10*3/uL (0.20-1.00); Monocytes % (A) 4.5 %; NRBC Per 100 WBC 0 X 10*3/uL (0.00-0.01); Neutrophils # (A) 6.17 X 10*3/uL (1.80-7.70); Neutrophils % (A) 68.1 %; Platelet Count 305 X 10*3/uL (140-440); RBC 5.07 X 10*6/uL (4.10-5.20); RDW 12.6 % (11.5-14.5); WBC 9.08 X 10*3/uL (4.50-10.00)
[2024-02-03 16:28] LABS: Erythrocyte Sedimentation Rate 33 mm/Hr (0-20)
[2024-02-03 16:37] LABS: % Iron Saturation 32.52 (12.00-45.00); ALT 26 U/L (8-44); AST 24 U/L (13-35); Albumin 4.8 g/dL (3.8-4.9); Albumin/Globulin Ratio 1.78 Ratio (1.60-3.17); Alkaline Phosphatase 97 U/L (41-126); BUN/Creat Ratio 10.33 Ratio (12.00-20.00); Blood Urea Nitrogen 9.3 mg/dL (9.0-27.0); Calcium 9.6 mg/dL (8.7-10.3); Carbon Dioxide 23.5 mmol/L (21.6-31.8); Chloride 101 mmol/L (96-109); Chol/HDL Ratio 4.42 Ratio; Creatine Kinase 54 U/L (26-186); Globulin 2.7 g/dL (1.6-3.3); Glucose 115 mg/dL (70-110); Iron 93 UG/DL (50-170); LDL Cholesterol,Calculated 122.4 mg/dL (0.0-131.0); Magnesium 2.2 mg/dL (1.5-2.4); Phosphorus 3.2 mg/dL (2.4-5.1); Potassium 3.6 mmol/L (3.5-5.5); Sodium 139 mmol/L (135-145); Total Bilirubin 0.4 mg/dL (0.3-1.2); Total Iron Binding Capacity 286 UG/DL (228-460); Total Protein 7.5 g/dL (6.2-8.2)
== END | disposition home or self-care (01) ==
LOC: LABWHC1 11:04
PROVIDERS: ATTEND Internal Medicine
DX: Z00.00 Encounter for general adult medical examination without abnormal findings (principal); I10 Essential (primary) hypertension; D64.9 Anemia, unspecified; E78.5 Hyperlipidemia, unspecified; E55.9 Vitamin D deficiency, unspecified; K76.0 Fatty (change of) liver, not elsewhere classified; Q07.00 Arnold-Chiari syndrome without spina bifida or hydrocephalus
CPT/HCPCS: 36415; 80053; 80061; 82306; 82550; 82728; 83540; 83550; 83735; 84100; 84443; 85025; 85652; 86140

== ENCOUNTER → 2024-05-13 | Outpatient (CLI) | payer OTHER, MEDICARE ==
[2024-05-13 19:33] LABS: Basophils # (A) 0.07 X 10*3/uL (0.00-0.10); Basophils % (A) 0.7 %; Eosinophils # (A) 0.19 X 10*3/uL (0.04-0.35); HCT 45.3 % (37.2-46.3); HGB 15.1 g/dL (12.0-15.0); Lymphocytes # (A) 2.15 X 10*3/uL (0.90-5.00); Lymphocytes % (A) 22.9 %; MCHC 33.3 g/dL (32.0-37.0); MCV 89.9 FL (80.0-97.0); Mean Platelet Volume 10.9 FL (9.5-12.2); Monocytes # (A) 0.58 X 10*3/uL (0.20-1.00); Monocytes % (A) 6.2 %; NRBC Per 100 WBC 0 X 10*3/uL (0.00-0.01); Neutrophils # (A) 6.36 X 10*3/uL (1.80-7.70); Platelet Count 299 X 10*3/uL (140-440); RBC 5.04 X 10*6/uL (4.10-5.20); RDW 12.9 % (11.5-14.5); WBC 9.37 X 10*3/uL (4.50-10.00)
[2024-05-13 21:01] LABS: Hepatitis A Antibody IgM Nonreactive (Nonreactive); Hepatitis B Core IgM Nonreactive (Nonreactive); Hepatitis B Surface Antigen Nonreactive (Nonreactive); Hepatitis C IgG Antibody Nonreactive (Nonreactive)
[2024-05-13 21:15] LABS: ALT 19 U/L (8-44); AST 20 U/L (13-35); Albumin 4.6 g/dL (3.8-4.9); Alkaline Phosphatase 101 U/L (41-126); BUN/Creat Ratio 11.62 Ratio (12.00-20.00); Blood Urea Nitrogen 9.3 mg/dL (9.0-27.0); Calcium 9.6 mg/dL (8.7-10.3); Carbon Dioxide 23.7 mmol/L (21.6-31.8); Chloride 102 mmol/L (96-109); Globulin 2.7 g/dL (1.6-3.3); Glucose 90 mg/dL (70-110); Potassium 4.1 mmol/L (3.5-5.5); Sodium 139 mmol/L (135-145); Total Bilirubin 0.4 mg/dL (0.3-1.2); Total Protein 7.3 g/dL (6.2-8.2)
== END | disposition home or self-care (01) ==
LOC: LABWHC1 12:17
PROVIDERS: ATTEND Internal Medicine Gastroenterology
DX: K76.0 Fatty (change of) liver, not elsewhere classified (principal)
CPT/HCPCS: 36415; 80053; 80074; 81596; 85025

== ENCOUNTER 2024-07-02 09:47 | Day surgery (SDC) | payer MEDICARE, OTHER ==
[2024-07-02 10:27] VITALS: TEMP 96.9
[2024-07-02] MEDS: LACTATED RINGERS 1,000 ML IV SCH (10:33)
[2024-07-02] MEDS: IV FLUID CONTINUATION 1,000 ML IV ONE ×2 (10:42→11:26)
[2024-07-02] MEDS ORDERED: LIDOCAINE 1% INJ 10MG/ML (20 ML MDV) ONE (11:28)
[2024-07-02] MEDS ORDERED: PROPOFOL 10 MG/ML 20 ML VIAL IV ONE (11:28)
--- NOTE | 2024-07-02 11:37 | P.PCN ---
Date of Procedure: 07/02/24 Procedure(s) Performed: BRIEF HISTORY: Patient is a 38-year-old, pleasant, white female schedule upper endoscopy as a part evaluation of intermittent episodes of nausea vomiting and heartburn of several years duration. PROCEDURE PERFORMED: Esophagogastroduodenoscopy with biopsy. PREOPERATIVE DIAGNOSIS: Nausea vomiting and heartburn of several years duration. IV sedation per anesthesia. PROCEDURE: After informed consent was obtained, the patient was brought into the endoscopy unit. IV sedation was administered by Anesthesia under continuous monitoring. Initially the Olympus GIF-140 video endoscope was inserted into the mouth. Esophagus intubated without any difficulty. It was gradually advanced into the stomach and duodenum and carefully examined. The bulb and the second part of the duodenum appeared normal. These were done from the duodenum rule out celiac disease. The scope at this time was withdrawn to the stomach, adequately insufflated with air, and upon careful examination, mucosa of the antrum, there is diffuse gastritis and biopsies were done from this area. Mucosa of the body, cardia and the fundus appeared normal. The scope was then withdrawn into the esophagus. The GE junction was located at 39 cm from the incisors. The esophagus appeared normal. There were no erosions or ulcerations seen and the patient tolerated the procedure well. IMPRESSION: 1. Mild diffuse antral gastritis. 2. No evidence of esophagitis or Edmonds's esophagus. RECOMMENDATIONS: The findings of this examination were discussed with the patient as well as her family. She was advised to follow the biopsy results. Advised to increase her Pepcid to 20 mg twice daily and follow antireflux measures. Continue with Zofran as needed. Follow-up in office in 2 to 3 weeks..
[2024-07-02 11:48] VITALS: RESP 16
[2024-07-02 12:02] VITALS: BP 127/92; PULSE 76
== END 2024-07-02 12:53 | disposition home or self-care (01) ==
LOC: ORWHC2ENDO 09:47
PROVIDERS: ATTEND Internal Medicine Gastroenterology
DX: K29.50 Unspecified chronic gastritis without bleeding (principal); K20.90 Esophagitis, unspecified without bleeding; I10 Essential (primary) hypertension; E78.5 Hyperlipidemia, unspecified; K75.81 Nonalcoholic steatohepatitis (NASH); G93.5 Compression of brain; F41.9 Anxiety disorder, unspecified; F32.A Depression, unspecified; Z79.890 Hormone replacement therapy; Z79.899 Other long term (current) drug therapy; Z86.73 Personal history of transient ischemic attack (TIA), and cerebral infarction without residual deficits; Z88.0 Allergy status to penicillin; Z91.040 Latex allergy status
CPT/HCPCS: 81025; 88305; 43239; J2003; J2704

== ENCOUNTER 2025-01-08 11:37 | Emergency (ER) | payer MEDICARE, OTHER ==
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
--- NOTE | 2025-01-08 13:00 | XR ---
EXAMINATION TYPE: XR ankle complete RT DATE OF EXAM: 01/08/2025 12:25 PM COMPARISON: None CLINICAL INDICATION: Female, 39 years old with history of Injury; PHH, pain TECHNIQUE: XR ankle complete RT; frontal, lateral and oblique projections. FINDINGS: There is thought to be an acute fracture through the distal fibula with mild displacement and evidenc e of prior remote injury of the ligament with desiccation. IMPRESSION: There is thought to be an acute fracture of the distal fibula with soft tissue swelling. Additional r emote injury to the ligaments with calcification present. Consider CT for complete evaluation. Correl ate with prior history of fracture. [facility], , 01/08/2025 12:58 PM
--- NOTE | 2025-01-08 13:02 | XR ---
EXAMINATION TYPE: XR knee complete LT DATE OF EXAM: 01/08/2025 12:26 PM COMPARISON: None CLINICAL INDICATION: Female, 39 years old with history of Injury; pain TECHNIQUE: XR knee complete LT 3 views submitted. FINDINGS: No evidence of any acute osseous pathology or soft tissue swelling. Tricompartmental oste ophyte formation involving the femoral condyles, tibial plateau and patella. Mild joint space narrowi ng. IMPRESSION: 1. No acute osseous pathology. 2. Mild tricompartmental osteoarthritic changes. [facility], , 01/08/2025 12:59 PM
[2025-01-08] MEDS: ACETAMINOPHEN TAB 500 MG TAB PO STA (14:11)
[2025-01-08] MEDS: IBUPROFEN 800 MG TAB PO STA (14:11)
[2025-01-08] MEDS: traMADol 50 MG STARTER PACK TAB BTL PO STA (14:12)
[2025-01-08] MEDS: HYDROmorphone 1 MG/ML 1 ML SYRINGE IM STA (14:21)
[2025-01-08 15:54] VITALS: BP 128/58; PULSE 80; RESP 17; TEMP 97.8
== END 2025-01-08 14:32 | disposition home or self-care (01) ==
LOC: EC 11:37
DX: S82.401A Unspecified fracture of shaft of right fibula, initial encounter for closed fracture (principal); Z88.0 Allergy status to penicillin; Z91.013 Allergy to seafood; Z91.018 Allergy to other foods; Z91.040 Latex allergy status; W01.0XXA Fall on same level from slipping, tripping and stumbling without subsequent striking against object, initial encounter
CPT/HCPCS: 73562; 73610; 99283; 96372; 29515; J1171